=== PATIENT | male | born 1955 | race Caucasian/White ===

== ENCOUNTER 2024-11-23 14:26 | Emergency (ER) | payer OTHER, SELFPAY ==
[2024-11-23] VITALS (29 sets, daily range): BP systolic 119–180; BP diastolic 86–119; PULSE 82–101; RESP 12–34; TEMP 37.1–38.8; O2SAT 92–99
--- OUTSIDE RECORDS SUMMARY | 2024-11-23 14:30 | XMS_ITS | Clinical Summary ---
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 Role Phone Pcp, No Primary Care Provider Unavailabl e Allergies Active Allergy Reactions Criticality Noted Date Comments Adhesive Tape sensitivity Medications No known medications Active Problems Problem Noted Date Diagnosed Date Calculus of kidney 03/17/2007 Mixed hyperlipidemia Impaired fasting glucose Immunizations Immunization Administration Dates Next Due Hepatitis A (Adult) 03/04/2021,12/25/2013 Hepatitis B, Unspecified 11/07/1985,06/10/1985,0 05/10/1985 Inactivated Polio Vaccine 12/25/2013 Influenza, High-dose Quadriv alent Inactivated 02/20/2021,12/26/2019 Influenza, IIV4 (=>6mos) MDV 02/20/2019 Pneumococcal Poly,23-Valent (Pneumovax) 02/29/20 21 Pneumococcal conj 13-Valent (Prevnar 13) 020 Tdap 02/28/2021,12/25/2013 Tuberculin (PPD) 06/28/2009 Typhoid (injectable) 12/25/2013 Zoster (Shingrix-RZV, recombinant) 11/30/2018, Social History Tobacco Use Types Packs/Day Years Used Date Smoking Tobacco: Never Smokeless Tobacco: Never Tobacco Cessation:Counseling Given: Yes Alcohol Use Standard Drinks/Week Comments Yes 0 (1 standard drink = 0.6 oz pur e alcohol) socially Social Connections Answer Date Recorded Frequency of Communication with Friends and Fami ly Not on file 09/07/2022 Financial Resource Strain Answer Date R ecorded Difficulty of Paying Living Expenses 3 08/20/2021 Difficulty of Paying Living Expenses Not on file 08/20/2021 Food Insecurity Answer Date Recorded Worried About Running Out of Food in the Last Ye ar 1 08/20/2021 Transportation Needs Answer Date Record ed Lack of Transportation (Medical) 1 08/20/2021 Housing Stability Answer Date Recorded Unable to Pay for Housing in the Last Year 1 08/20/2021 Sex and Gender Information Value Date Recorded Sex Assigned at Not on file 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[employer] Gender Identity Not on file Sexual Orientation Not on file Obstetrics History Last Filed Vital Signs Vital Sign Reading Time Taken Comments Blood Pressure 148/100 08/20/2021 10:01 AM CDT Pulse 73 08/20/2021 9:27 AM CDT Temperature 35.4 C (95.7 F) 01/11/2007 11:45 AM CDT Respiratory Rate 18 01/11/2007 1:00 PM CDT Oxygen Saturation 96% 08/20/2021 9:27 AM CDT Inhaled Oxygen Concentration - - Weight 74.8 kg (165 lb) 08/20/2021 9:27 AM CDT Height 177.8 cm (5' 10) 01/11/2007 9:00 AM CDT Body Mass Index - - Plan of Treatment Health Maintenance Due Date Last Done Comments Depression screening for age 12+ 1966 BMI (ht and wt on same day) for age 18+ 1972 Hepatitis C screening for ag e 18-79 1972 Colonoscopy through age 75 1999 Lipids for age 45-75 02/10/2012 02/09/2007, 11/30/2005, 04/10/2002, Additional history exists Medicare Wellness for age 65+ 2019 COVID-19 vaccine series ( season) 2024 08/11/2021, 01/31/2021, 07/20/2020, Additional history exists Influenza Vaccine (#1) 2025 02/20/2019 RSV vaccine for adults or (1 - 1-dose 75+ series) 2029 Tetanus booster 02/28/2031 02/28/2021, 12/25/2013 Hepatitis B series for 19+ Completed 11/07, 06/10/1985, 05/10/1985 Zoster (shingles) series for age 50+ Completed 11/30/2018, 09/06/2018 Pneumococcal series for age 50+ Completed , 12/18/2019 Procedures Procedure Name Priority Date/Time Associated Diagnosis Comments LIPID PANEL Routine 02/09/2007 7:10 AM CDT Hyperlipidemia Mixed from Last 3 Months or Most Recently Relevant to Health Maintenance Results * LIPID PANEL (02/09/2007 7:10 AM CDT) [facility] Signature CHOLESTEROL,TOTAL 166 110 - 199 mg/dL [facility] TRIGLYCERIDES 68 <150 mg/dL [facility] HDL CHOLESTEROL 56 >40 mg/dL [facility] CHOL/HDL RATIO 2.96 <4.51 [facility] LDL CHOLESTEROL 96 <131 mg/dL [facility] PATIENT STATUS Fasting [facility] Blood specimen (specimen) BLOOD SPECIMEN / Unknown 02/09/2007 7:10 AM CDT 02/09/2007 7:06 AM CDT Daniel Silvestre MD CHEMISTRY Final Result [facility] [address] [place] [address] from Last 3 Months or Most Recently Relevant to Health [place] [address] [employer] CHOICE PPO MR Advance Directives * Full Code (Latest Code Status on File) Date Activated Date Inactivated Comments 01/11/2007 8:25 AM 01/11/2007 3:27 PM Care Teams [employer] K[employer] Tender Relationship Specialty Start Date End Date Pcp, No . PCP - General 08/20/21
[2024-11-23 15:14] LABS: Appearance Urine Clear (Clear)
--- NOTE | 2024-11-23 15:17 | CRLHL7_ITS ---
For Patients: As a result of the Century Cures Act, medical imaging exams and procedure reports are released immediately into your electronic medical record. You may view this report before your referring provider. If you have questions, please contact your health care provider. INDICATION: ALTERED MENTAL STATUS, FEVER TECHNIQUE: CT of the head was performed without IV contrast. COMPARISON: None. FINDINGS: Parenchyma: No acute hemorrhage, infarction, or mass. Moderate confluent periventricular white matter hypoattenuation is nonspecific and is favored to represent chronic small vessel ischemic disease. Ventricles and extra-axial spaces: Mild involutional changes. Visualized paranasal sinuses: Clear. Mastoid air cells: Clear. Bones: No focal abnormality. Additional comment: None. IMPRESSION: No acute intracranial abnormality. Please note that all CT scans at this facility use dose modulation, iterative reconstruction, and/or weight-based dosing when appropriate to reduce radiation dose to as low as reasonably achievable. Dictated by Sánchez Arvizu MD @ 11/23/2024 4:10:26 PM (Electronically Signed)
--- NOTE | 2024-11-23 15:17 | CRLHL7_ITS ---
For Patients: As a result of the Cures Act, medical imaging exams and procedure reports are released immediately into your electronic medical record. You may view this report before your referring provider. If you have questions, please contact your health care provider. INDICATION: : FEVER, AMS COMPARISON: None TECHNIQUE: Two view(s) of the chest FINDINGS: The cardiomediastinal silhouette and pulmonary vasculature are unremarkable. There is no focal airspace consolidation, pleural effusion, or pneumothorax. Likely nipple shadow on the right. No displaced fractures. IMPRESSION: No acute cardiopulmonary process. Dictated by Koby Kelly MD @ 11/23/2024 4:01:34 PM (Electronically Signed)
[2024-11-23 15:33] LABS: Lactate Sepsis w/Reflex* 2.0 mmol/L (0.5-1.9)
[2024-11-23 15:39] LABS: Hematocrit 44.2 % (37.0-53.0); Hemoglobin* 14.9 gm/dL (13.5-17.5); Immature Granulocytes Abs Auto 0.01 K/uL (0.00-0.30); Immature Granulocytes Pct Auto 0.1 %; Lymphocytes Absolute Auto 2.37 K/uL (0.90-2.90); Mean Corpuscular HGB Conc 34 gm/dL (32-36); Mean Corpuscular Hemoglobin 31 pg (26-34); Mean Corpuscular Volume 92 fL (80-100); RDW Coefficient of Variation % 18.3 % (11.5-15.5); Red Blood Count 4.80 m/uL (4.30-5.90); White Blood Count* 7.92 K/uL (4.50-11.00)
[2024-11-23 15:40] LABS: PCR FLU A Negative PCR FLU A (Negative); PCR FLU B Negative PCR FLU B (Negative); PCR RSV Negative PCR RSV (Negative); SARS PCR* Negative SARS-CoV-2 (Negative)
--- NOTE | 2024-11-23 15:43 | ED.GENADULT ---
HPI - General Adult General Date Seen: 11/23/24 Chief complaint: Neuro Symptoms/Altered Deficit Stated complaint: cognitive issues, instability Time Seen by Provider: 11/23/24 14:50 Source: patient and family Mode of arrival: ambulatory Limitations: no limitations History of Present Illness HPI narrative: Patient is a 69-year-old male presenting to the emergency department for altered mental status and instability. Patient is overall healthy with no medical issues or baseline memory issues presenting to the emergency department with his for issues with word finding, confusion, tremors and gait/balance issues. He was acting normally last night and his came home from work about noon today noticed do not seem right. She states he felt warm to the touch but did not check a temperature at that time. She states he has been continuing to act confused. Also seems very unstable when he walks which is abnormal. He has no sick contacts other than a grand kid that had a runny nose the other day. Has had less of an appetite over the past few days she states. He has not been coughing. Denies any chest pain, shortness of breath, abdominal pain, dysuria, polyuria, diarrhea, constipation, weakness, numbness, vision changes, headache. No history of symptoms like this before. Related Data Home Medications ?Medication ?Instructions ?Recorded ?Confirmed No Known Home Medications 11/23/24 11/23/24 Allergies Allergy/AdvReac Type Severity Reaction Status Date / Time oyster extract Allergy Unknown Verified 11/23/24 17:30 shellfish derived Allergy Unknown Verified 11/23/24 17:30 Review of Systems Status of ROS: Reports: 10 or more systems reviewed and unremarkable except as noted in History and below PFSH PFS Social History Smoking Status: Never smoker Do you use any of these nicotine containing products: None How often do you have a drink containing alcohol: 4 or more times a week How many standard drinks containing alcohol do you have on a typical day: 1 or 2 How often do you have six or more drinks on one occasion: Never AUDIT-C Alcohol total score: 4 Non-prescribed substance use: denies use Exam Narrative: Exam Narrative: Const: Well-nourished, Well-developed, in mild distress Eyes: PERRL, no conjunctival injection, and symmetrical lids HENT: Atraumatic external nose and ears. Dry mucous membranes. Neck: Symmetric, trachea midline, No thyromegaly. CVS: RRR, No murmurs or gallops. Peripheral pulses 2+ and equal in all extremities RESP: Unlabored respiratory effort. Clear to auscultation bilaterally. GI: Nontender/Nondistended, No rebound or guarding. MSK:Extremities w/o deformity, Normal Active ROM Skin: Warm, Dry. No rashes or lesions. Neuro: Normal Muscle tone, No focal neurological deficits. Psych: Awake, Alert, & Oriented x3. Appropriate mood and affect. Const: Vital Signs, click to edit/add: Vital Signs - 24 hr 11/23/24 14:42 11/23/24 15:42 11/23/24 15:51 Temperature 102 F H 100.9 F H Pulse Rate 90 Pulse Rate [Pulse Oximeter] 101 H 92 Respiratory Rate 20 21 24 Blood Pressure Blood Pressure [Ri ght Upper Arm] 180/97 H 151/102 H Pulse Oximetry 98 95 [facility] Room Air 11/23/24 16:01 11/23/24 16:11 11/23/24 16:15 Temperature 100.9 F H Pulse Rate 90 90 Pulse Rate [Pulse Oximeter] Respiratory Rate 32 H 24 Blood Pressure 161/86 H Blood Pressure [Ri ght Upper Arm] Pulse Oximetry 97 98 [facility] 11/23/24 16:30 11/23/24 16:41 11/23/24 16:45 Temperature 101.9 F H Pulse Rate 89 Pulse Rate [Pulse Oximeter] Respiratory Rate 30 H 34 H Blood Pressure Blood Pressure [Ri ght Upper Arm] Pulse Oximetry 92 [facility] 11/23/24 17:05 11/23/24 17:15 11/23/24 17:49 Temperature Pulse Rate 90 86 85 Pulse Rate [Pulse Oximeter] Respiratory Rate 27 H 22 22 Blood Pressure Blood Pressure [Ri ght Upper Arm] Pulse Oximetry 96 94 95 [facility] 11/23/24 18:03 11/23/24 18:15 11/23/24 18:44 Temperature Pulse Rate 86 82 90 Pulse Rate [Pulse Oximeter] Respiratory Rate 12 30 H 29 H Blood Pressure Blood Pressure [Ri ght Upper Arm] Pulse Oximetry 96 97 97 [facility] 11/23/24 18:45 11/23/24 19:00 11/23/24 19:23 Temperature 98.8 F Pulse Rate 88 95 Pulse Rate [Pulse Oximeter] Respiratory Rate 23 Blood Pressure Blood Pressure [Ri ght Upper Arm] Pulse Oximetry 98 98 Oxygen Delivery Me thod 11/23/24 19:30 11/23/24 19:34 11/23/24 20:39 Temperature Pulse Rate 99 Pulse Rate [Pulse Oximeter] Respiratory Rate 19 26 H Blood Pressure 161/98 H 119/91 H Blood Pressure [Ri ght Upper Arm] Pulse Oximetry 97 Oxygen Delivery Me thod 11/23/24 20:40 11/23/24 21:02 11/23/24 21:32 Temperature 99.5 F Pulse Rate 96 99 Pulse Rate [Pulse Oximeter] Respiratory Rate 26 H 26 H Blood Pressure 168/92 H 175/92 H Blood Pressure [Ri ght Upper Arm] Pulse Oximetry 98 99 Oxygen Delivery Me thod Course Vital Signs Vital signs: Initial Vital Signs Temperature 102 F H 11/23/24 14:42 Temperature Source Temporal Artery Scan 11/23/24 14:42 Pulse Rate 101 H 11/23/24 14:42 Respiratory Rate 20 11/23/24 14:42 Blood Pressure 180/97 H 11/23/24 14:42 Blood Pressure Mean 124 H 11/23/24 14:42 Blood Pressure Position Sitting 11/23/24 14:42 Pulse Oximetry 98 11/23/24 14:42 Oxygen Delivery Method Room Air 11/23/24 14:42 Vital Signs Temperature 102 F H 11/23/24 14:42 Pulse Rate 101 H 11/23/24 14:42 Respiratory Rate 20 11/23/24 14:42 Blood Pressure 180/97 H 11/23/24 14:42 Pulse Oximetry 98 11/23/24 14:42 Oxygen Delivery Method Room Air 11/23/24 14:42 Temperature 99.5 F 11/23/24 20:40 Pulse Rate 99 11/23/24 21:32 Respiratory Rate 26 H 11/23/24 21:32 Blood Pressure 175/92 H 11/23/24 21:32 Pulse Oximetry 99 11/23/24 21:32 Oxygen Delivery Method Room Air 11/23/24 15:51 Medications Administered Medications: Generic Name Dose Route Start Last Admin Trade Name Freq PRN Reason Stop Dose Admin Ceftriaxone Sodium 2 gm/ 100 mls @ 200 mls/hr 11/23/24 19:45 11/23/24 22:15 Sodium Chloride IVPB Infused Q24H YOANA Infusion Discontinued Medications Generic Name Dose Route Start Last Admin Trade Name Cornelius PRN Reason Stop Dose Admin Acetaminophen 650 mg 11/23/24 15:40 11/23/24 16:01 Acetaminophen 325 Mg Tablet PO 11/23/24 15:41 650 mg ONCE ONE Administration Sodium Chloride 1,000 mls @ 1,000 mls/hr 11/23/24 15:30 11/23/24 19:14 0.9 % Sodium Chloride 1000 Ml IV 11/23/24 17:36 Infused .Q1H YOANA Infusion Vancomycin/PEG/NADA/Lysine/Water 1.5 gm in 300 mls @ 200 mls/hr 11/23/24 19:37 11/23/24 21:35 Vancomycin 1.5 Gm/300 Ml IVPB 11/23/24 21:06 200 mls/hr ONCE ONE Administration Protocol Medical Decision Making [facility] Narrative Medical decision making narrative: Patient is a 69-year-old male presenting for altered mental status. The differential diagnosis of altered mental status is broad and includes infection, electrolyte abnormalities, ACS, dehydration, intercranial abnormality, hypoxia, metabolic causes, hypertensive encephalopathy, toxins, overdose/withdrawal, acute psychiatric illness etc. considering he has a fever and is tachycardic am concerned about sepsis and infection causing his confusion. Will do a septic workup. 30 mL/kilos fluid given. No signs of volume overload at this time. Tongue does look slightly dry. Also chest x-ray to look for signs of underlying pneumonia along with the CT scan of his head. Blood cultures, CBC, CMP, lactic, magnesium, troponin, urinalysis, viral swabs all ordered. Lab work shows no concerning findings other than he does have blood in his urine. Lactate is 2.0 which just slightly elevated. CT scan of the head shows no acute concerning abnormalities. Chest x-ray shows no acute concerning abnormalities. Due to the uncertainty of what is causing his infection I will do a CT scan chest abdomen pelvis to make sure we are not missing anything. He does have a history of kidney stones. This CT returned showing a obstructing 8 mm stone in the right collecting system. Is causing minimal hydronephrosis. Also has multiple bladder stones. Hard to say if this is truly an acute stone is he is having no pain but considering his history I do have concern but infected stone. We very well could just be early in the process of sepsis. Will treat him with Rocephin. Considering there is concerned about this infected stone will transfer him for Urology consult. Of note after the fluids his mental status has improved significantly. I spoke to hospitalist Dr. Jameson of self daily he accepted the patient. He does recommend urology consult. I did spoke to the on-call urologist for them and he is in agreement to transfer the patient. Does state the patient will likely need a stent either way but as long as the patient does not go septic he can likely be on tomorrow for the procedure. Patient is agreeable to this plan Lab Data Labs: Lab Results 11/23/24 11/23/24 11/23/24 Range/Units 14:50 15:06 15:25 WBC 7.92 (4.50-11.00) K/uL RBC 4.80 (4.30-5.90) m/uL Hgb 14.9 (13.5-17.5) gm/dL Hct 44.2 (37.0-53.0) % MCV 92 (80-100) fL MCH 31 (26-34) pg MCHC 34 (32-36) gm/dL RDW Coeff of Purnima 18.3 H (11.5-15.5) % Plt Count 260 (140-440) K/uL Neut % (Auto) 61.2 (42.0-72.0) % Lymph % (Auto) 29.9 (20-44) % Nuckolls % (Auto) 8.2 (0.0-11.0) % Eos % (Auto) 0.0 (0.0-7.0) % Baso % (Auto) 0.6 (0.0-3.0) % Neut # (Auto) 4.84 (1.7-7.0) K/uL Lymph # (Auto) 2.37 (0.90-2.90) K/uL Nuckolls # (Auto) 0.60 (0.00-0.90) K/UL Eos # (Auto) 0.00 (0.00-0.50) K/uL Baso # (Auto) 0.05 (0.00-0.30) K/uL Abs Immat Gran (auto) 0.01 (0.00-0.30) K/uL Imm/Tot Granulo (auto) 0.1 % Sodium 135 (135-149) mmol/L Potassium 4.2 (3.6-5.1) mmol/L Chloride 103 (96-114) mmol/L Carbon Dioxide 22 (20-32) mmol/L Anion Gap 10 (7-15) mEq/L BUN 18 (7-30) mg/dL Creatinine 1.1 (0.5-1.5) mg/dL Estimated GFR 72 ml/min Glucose 107 (60-115) mg/dL Lactate 2.0 H (0.5-1.9) mmol/L Calcium 9.5 (8.4-10.6) mg/dL Magnesium 2.0 (1.5-2.6) mg/dL Total Bilirubin 1.0 (0.1-1.5) mg/dL AST 36 H (12-35) U/L ALT 24 (4-50) U/L Alkaline Phosphatase 65 (40-150) U/L Troponin I < 0.01 (0.01-0.04) ng/mL Total Protein 8.5 H (6.0-8.3) g/dL Albumin 4.9 (3.3-5.0) g/dL Urine Color Yellow (Yellow) Urine Appearance Clear (Clear) Urine pH 6.0 (5.0-8.5) Ur Specific Deland 1.020 (1.000-1.030) Urine Protein 1+ A (Negative) Urine Glucose (UA) Negative (Negative) Urine Ketones Negative (Negative) Urine Blood 3+ A (Negative) Urine Nitrite Negative (Negative) Urine Bilirubin Negative (Negative) Urine Urobilinogen 0.2 (0.2-1.0) Ur Leukocyte Esterase Negative (Negative) Urine RBC 50-100 A (0-2) Urine WBC 0-2 (0-5) Ur Squamous Epith Cells Few (None-Few) Calcium Oxalate Crystal Few A (None) Urine Bacteria Few A (None) Urine Yeast Few A (None) SARS-CoV-2 (PCR) Negative SARS-CoV-2 (Negative) Influenza Type A (PCR) Negative PCR FLU A (Negative) Influenza Type B (PCR) Negative PCR FLU B (Negative) RSV (PCR) Negative PCR RSV (Negative) 07/17/25 Range/Units 17:25 WBC (4.50-11.00) K/uL RBC (4.30-5.90) m/uL Hgb (13.5-17.5) gm/dL Hct (37.0-53.0) % MCV (80-100) fL MCH (26-34) pg MCHC (32-36) gm/dL RDW Coeff of Purnima (11.5-15.5) % Plt Count (140-440) K/uL Neut % (Auto) (42.0-72.0) % Lymph % (Auto) (20-44) % Nuckolls % (Auto) (0.0-11.0) % Eos % (Auto) (0.0-7.0) % Baso % (Auto) (0.0-3.0) % Neut # (Auto) (1.7-7.0) K/uL Lymph # (Auto) (0.90-2.90) K/uL Nuckolls # (Auto) (0.00-0.90) K/UL Eos # (Auto) (0.00-0.50) K/uL Baso # (Auto) (0.00-0.30) K/uL Abs Immat Gran (auto) (0.00-0.30) K/uL Imm/Tot Granulo (auto) % Sodium (135-149) mmol/L Potassium (3.6-5.1) mmol/L Chloride (96-114) mmol/L Carbon Dioxide (20-32) mmol/L Anion Gap (7-15) mEq/L BUN (7-30) mg/dL Creatinine (0.5-1.5) mg/dL Estimated GFR ml/min Glucose (60-115) mg/dL Lactate 1.1 (0.5-1.9) mmol/L Calcium (8.4-10.6) mg/dL Magnesium (1.5-2.6) mg/dL Total Bilirubin (0.1-1.5) mg/dL AST (12-35) U/L ALT (4-50) U/L Alkaline Phosphatase (40-150) U/L Troponin I (0.01-0.04) ng/mL Total Protein (6.0-8.3) g/dL Albumin (3.3-5.0) g/dL Urine Color (Yellow) Urine Appearance (Clear) Urine pH (5.0-8.5) Ur Specific [place] (1.000-1.030) Urine Protein (Negative) Urine Glucose (UA) (Negative) Urine Ketones (Negative) Urine Blood (Negative) Urine Nitrite (Negative) Urine Bilirubin (Negative) Urine Urobilinogen (0.2-1.0) Ur Leukocyte Esterase (Negative) Urine RBC (0-2) Urine WBC (0-5) Ur Squamous Epith Cells (None-Few) Calcium Oxalate Crystal (None) Urine Bacteria (None) Urine Yeast (None) SARS-CoV-2 (PCR) (Negative) Influenza Type A (PCR) (Negative) Influenza Type B (PCR) (Negative) RSV (PCR) (Negative) Imaging Data Chest x-ray: Attestation: I have reviewed the pertinent imaging results. Radiologist's impression: No acute cardiopulmonary process. Dictated by Koby Kelly MD @ 11/23/2024 4:01:[address] scan head: Attestation: I have reviewed the pertinent imaging results. Radiologist's impression: No acute intracranial abnormality. Please note that all CT scans at this facility use dose modulation, iterative reconstruction, and/or weight-based dosing when appropriate to reduce radiation dose to as low as reasonably achievable. Dictated by Sánchez Arvizu MD @ 11/23/2024 4:10:[address] Chest/Ab/Pelvis: Radiologist's impression: 1. 8 mm stone in the proximal right renal collecting system at the UPJ, with minimal right hydronephrosis. There is mild inflammation around the collecting system and ureter. 2. Additional non-obstructing stone at the inferior pole of the right kidney. 3. Prostatomegaly indenting the base of the bladder. This may result in outlet obstruction. 4. Multiple bladder stones. Please note that all CT scans at this facility use dose modulation, iterative reconstruction, and/or weight-based dosing when appropriate to reduce radiation dose to as low as reasonably achievable. Dictated by Kim Blank MD @ 11/23/2024 6:42:02 PM ECG Data Attestation: I personally reviewed and interpreted this ECG as follows: Prior ECG tracings: not available for review Interpretation: Sinus rhythm with a rate of 92 beats per minute, normal intervals, normal axis, no ST or T-wave abnormalities Critical Care Time Critical Care Time Critical Care Time: Yes Attestation: The patient required my highest level preparedness to intervene emergently and I personally spent this critical care time directly and personally managing the patient. This critical care time included: Obtaining a history; Examining the patient; Pulse oximetry; Ordering and reviewing of studies; Arranging urgent treatment with development of a management plan; Evaluation of patients response to treatment; Frequent reassessment discussions with other providers. This critical care time was performed to assess and manage the high probability of imminent life-threatening deterioration that could result in multiorgan failure. It was exclusive of separate billable procedures and treating other patients and teaching time. Total Critical Care Time in Minutes: 35 Discharge Plan Discharge Clinical Impression: Right nephrolithiasis Sepsis Qualifiers: Sepsis type: sepsis due to unspecified organism Sepsis acute organ dysfunction status: unspecified Qualified Code(s): A41.9 - Sepsis, unspecified organism Patient Disposition: Xfer Other Condition: Improved Prescriptions: No Action No Known Home Medications Stand Alone Forms: [employer] Info Instructions
[2024-11-23 15:46] LABS: Slide Review Reflex No
[2024-11-23 15:50] LABS: Albumin* 4.9 g/dL (3.3-5.0); Chloride* 103 mmol/L (96-114); Potassium* 4.2 mmol/L (3.6-5.1); Sodium* 135 mmol/L (135-149)
[2024-11-23 15:53] LABS: Alanine Aminotransferase* 24 U/L (4-50); Alkaline Phosphatase* 65 U/L (40-150); Anion Gap 10 mEq/L (7-15); Aspartate Amino Transferase* 36 U/L (12-35); Bilirubin Total* 1.0 mg/dL (0.1-1.5); Blood Urea Nitrogen* 18 mg/dL (7-30); Calcium* 9.5 mg/dL (8.4-10.6); Carbon Dioxide* 22 mmol/L (20-32); Creatinine* 1.1 mg/dL (0.5-1.5); Estimated Glomerular Filt Rate 72 ml/min; Glucose* 107 mg/dL (60-115); Total Protein* 8.5 g/dL (6.0-8.3)
[2024-11-23] MEDS: ACETAMINOPHEN 325 MG TABLET 650 MG PO ×2 (16:01→23:00)
--- NOTE | 2024-11-23 16:21 | CRLHL7_ITS ---
For Patients: As a result of the 21st Century Cures Act, medical imaging exams and procedure reports are released immediately into your electronic medical record. You may view this report before your referring provider. If you have questions, please contact your health care provider. INDICATION: AMS, fever, hematuria. TECHNIQUE: CT chest, abdomen and pelvis acquired with 77 milliliters of Isovue 370 IV contrast. COMPARISON: None. FINDINGS: CHEST: Cardiovascular structures: Heart size is normal. Thoracic aorta and main pulmonary artery are normal in caliber. Mediastinum and jack: No mass or adenopathy. Lungs and pleura: Lungs and pleural spaces are clear. No suspicious nodules, infiltrates, or effusions. Chest wall and axilla: No mass or adenopathy. Bones: No suspicious bone lesions. Unremarkable for age. ABDOMEN AND PELVIS: Liver: Hepatic steatosis. No suspicious hepatic lesion identified. Gallbladder and bile ducts: Unremarkable. Pancreas: Unremarkable. Spleen: Unremarkable. Adrenal glands: Unremarkable. Kidneys: 8 millimeter stone in the proximal right renal collecting system at the [facility] (2/186) minimal right hydronephrosis. Nonobstructing stone at the inferior pole of the right kidney measuring approximately 5 millimeters. Inflammatory stranding and mild thickening along the right ureter. No left hydronephrosis or hydroureter. No left renal stones. GI tract: A few scattered colonic diverticuli. No evidence of diverticulitis. No bowel obstruction. Appendix is within normal limits. Vascular structures: Unremarkable. Lymph nodes: Unremarkable. Miscellaneous: Unremarkable. No free air or significant free fluid. Pelvic Organs: Prostatomegaly indenting the base of the bladder. Bladder is distended, with mildly thickened wall.Multiple bladder stones. Bones: No suspicious bone lesions. Unremarkable for age. IMPRESSION: 1. 8 mm stone in the proximal right renal collecting system at the [facility], with minimal right hydronephrosis. There is mild inflammation around the collecting system and ureter. 2. Additional non-obstructing stone at the inferior pole of the right kidney. 3. Prostatomegaly indenting the base of the bladder. This may result in outlet obstruction. 4. Multiple bladder stones. Please note that all CT scans at this facility use dose modulation, iterative reconstruction, and/or weight-based dosing when appropriate to reduce radiation dose to as low as reasonably achievable. Dictated by Kim Blank MD @ 11/23/2024 6:42:02 PM (Electronically Signed)
[2024-11-23 17:32] LABS: Lactate Sepsis 2 Hour 1.1 mmol/L (0.5-1.9)
[2024-11-23] MEDS: cefTRIAXone 2 GM in 0.9 % SODIUM CHLORIDE Mini-bag 100 ML IVPB (20:06)
[2024-11-23] MEDS: VANCOMYCIN 1.5 GM/300 ML 1.5 GM/300 ML PIGGYBACK IVPB (21:35)
[2024-11-24 00:13] VITALS: O2SAT 98
[2024-11-24 00:15] VITALS: BP 135/74; PULSE 83; RESP 16; RESP 24; TEMP 37.2; O2SAT 98
== END 2024-11-24 00:36 | disposition other institution (70) ==
PROVIDERS: Emergency Provider Student in an Organized Health Care Education/Training Program; PCP Family Medicine
DX: N20.0 Calculus of kidney (principal)
CPT/HCPCS: 36415; 70450; 71046; 71260; 74177; 80053; 81001; 83605; 83735; 84484; 85025; 87040; 87081; 87086; 87631; 93005; 94761; 99285; 99291; A9270; J0696; J3375; J7030; Q9967

== ENCOUNTER 2024-12-21 14:06 | Emergency (ER) | payer OTHER, SELFPAY ==
--- OUTSIDE RECORDS SUMMARY | 2024-11-24 01:36 | XMS_ITS | Encounter Summary ---
Author Organization [facility] Address [address] [place] [address]. [place] [address] Care Team Providers Care Associate Faculty Name Role Phone No Ref-Primary, Physician Primary Care Provider Reason for Visit * Auth/Cert Specialty Diagnoses / Procedures Referred By Kelvin camacho Referred To Contact Med Surg Diagnoses Kidney stone Kidney stone Get Figueroa DO [address] [phone] Phone: tel: fax: [facility] [address] [phone] Phone: tel: fax: Referral ID Status Reason Start Date Expiration Date Visits Re quested Visits Authorized [id number] 1 1 Encounter Details Date Type Department Care Team (Latest Contact Info) Description 11/24/2024 1:36 AM CDT - 11/29/2024 3:52 PM CDT Hospital Encounter [facility] Surgery [address] [phone] Lucinda Jamseon MD [address] [id number] Haley Tran MD [address] [id number] Brenna Dao MD [address] [phone] Get Figueroa DO [address] [place] [address] Kidney stone (Primary Dx) Discharge Disposition: Home or Self Care Social History Tobacco Use Types Packs/Day Years Used Date Smoking Tobacco: Never Smokeless Tobacco: Never Tobacco Cessation:Counseling Given: Not Answered Alcohol Use Standard Drinks/Week Comments Yes 0 (1 standard drink = 0.6 oz pur e alcohol) hasn't for 2 weeks Food Insecurity Answer Date Recorded Within the past 12 months, d id you worry that your food would run out before you got money to buy more? No 11/24/2024 Within the past 12 months, d id the food you bought just not last and you didn t have money to get more? No 11/24/2024 Housing Stability Answer Date Recorded Do you have housing? (Manuel g is defined as stable permanent housing and does not include staying outside in a car, in a tent, in an abandoned building, in an overnight mcfp, or couch-surfing.) Yes 11/24/2024 Are you worried about losing your housing? No 11/24/2024 Financial Resource Strain Answer Date R ecorded Within the past 12 months, h ave you or your family members you live with been unable to get utilities (heat, electricity) when it was really needed? No 11/24/2024 Transportation Needs Answer Date Record ed Within the past 12 months, h as lack of transportation kept you from medical appointments, getting your medicines, non-medical meetings or appointments, work, or from getting things that you need? No 11/24/2024 Interpersonal Safety Answer Date Record ed Do you feel physically and e motionally safe where you currently live? Yes 11/24/2024 Within the past 12 months, h ave you been hit, slapped, kicked or otherwise physically hurt by someone? No 11/24/2024 Within the past 12 months, h ave you been humiliated or emotionally abused in other ways by your partner or ex-partner? No 11/24/2024 Sex and Gender Information Value Date Recorded Sex Assigned at Not on file Legal Sex Male 7:51 PM CDT Gender Identity Not on file Sexual Orientation Not on file documented as of this encounter Last Filed Vital Signs Vital Sign Reading Time Taken Comments Blood Pressure 112/70 11/29/2024 8:02 AM CDT Pulse 79 11/29/2024 8:02 AM CDT Temperature 36.8 C (98.3 F) 11/29/2024 8:02 AM CDT Respiratory Rate 16 11/29/2024 8:02 AM CDT Oxygen Saturation 95% 11/29/2024 8:02 AM CDT Inhaled Oxygen Concentration - - Weight 69.8 kg (153 lb 14.1 oz) 11/24/2024 5:21 AM CDT Height 177.8 cm (5' 10) 11/24/2024 5:21 AM CDT Body Mass Index 22.08 11/24/2024 5:21 AM CDT documented in this encounter Discharge Summaries * Adriana Chan MD - 11/29/2024 1:38 PM CDT Images from the original note were not included. [facility] Discharge Summary Hospitalist Date of Admission: 11/24/2024 Date of Discharge: 11/29/2024 Discharging Provider: Adriana Chan MD Discharge Diagnoses Renal calculi History of Present Illness Please review admission history and physical. Hospital Course David Campbell was admitted on 11/24/2024. The following problems were addressed during his hospitalization: Active Problems: Kidney stone Dr. 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 Possible right pyelonephritis Obstructing 8mm right UPJ stone with mild hydronephrosis S/p cystoscopy and right ureteral stent placement 11/24 CT showed multiple bladder stones, prostamegaly and additional non obstructing right kidney stones.UA with some blood and bacteria but otherwise no nitrites, LE. no leukocytosis but had fever and encephalopathy which suggests infection. Patient was started on ceftriaxone and vancomycin at OSH, he was later continued on ceftriaxone 2 g IV daily, urine culture is negative, PSA elevated at 11. --11/24 cystoscopy with right stent placement with Dr. De Los Santos. Procedure was noticed to be complicated by need for indwelling Medrano catheter due to prostate bleeding secondary to enlarged prostate. CBI was initiated, hemoglobin trended down to 7 on 11/26, received 1 unit PRBC, hemoglobin stable since. Patient underwent Successful HoLEP, cystolitholapaxy, on 11/28, recovery was unremarkable. Hemoglobin stable, antibiotics discontinued on discharge. - Continue Flomax and finasteride. Follow-up with urology as recommended, hemoglobin 8.4. Encephalopathy: resolved Metabolic encephalopathy Likely due to fever and infection, improved with IVF and antipyretics. Head CT negative. No meningeal signs. Neuro exam is non focal and he already feels back to baseline so doubt CVA Adriana Chan MD Significant Results and Procedures Pending Results These results will be followed up by urology Unresulted Labs Ordered in the Past 30 Days of this Admission Date and Time Order Name Status Description 11/28/2024 5:29 PM Surgical Pathology Exam In process 11/28/2024 4:45 PM Stone analysis In process 11/24/2024 5:15 PM Anaerobic Bacterial Culture Routine Preliminary Code Status Full Code Primary Care Physician Physician No Ref-Primary Physical Exam Temp: 98.3 ??F (36.8 ??C) Temp src: Oral BP: 112/70 Pulse: 79 Resp: 16 SpO2: 95 % O2 Device: None (Room air) Oxygen Delivery: 2 LPM Vitals: 11/24/24 0521 Weight: 69.8 kg (153 lb 14.1 oz) Vital Signs with Ranges Temp: [96.8 ??F (36 ??C)-98.3 ??F (36.8 ??C)] 98.3 ??F (36.8 ??C) Pulse: [67-79] 79 Resp: [11-21] 16 BP: (106-146)/(68-81) 112/70 SpO2: [94 %-99 %] 95 % I/O last 3 completed shifts: In: 2240 [P.O.:890; I.V.:1000; IV Piggyback:100] Out: 9320 [Urine:9300; Blood:20] The patient was examined on the day of discharge. Discharge Disposition Discharged to home Condition at discharge: Stable Consultations This Hospital Stay UROLOGY IP CONSULT Time Spent on this Encounter I, Adriana Chan MD, personally saw the patient today and spent greater than 30 minutes discharging this patient. Discharge Orders Patient care order You have a URETERAL STENT. This is a temporary tube that will help your kidney drain appropriately after your procedure. Most people notice three symptoms when they have a stent: 1) Bladder spasms - You may feel the urge to urinate frequently while the stent is in. - You may have occasional bladder spasms where you feel pain in the bladder area. - You may have been prescribed a medicine like Detrol or Ditropan to help with these symptoms. 2) Blood in the urine - Usually this is light pink . - If you see blood in the urine, rest and drink plenty of fluids. 3) Pain in the kidney area - This usually happens right after urination and goes away pretty quickly. - You can take tylenol for the pain . These symptoms are temporary and will usually improve quickly once the stent can be removed. IMPORTANT: Stents are designed to be temporary. You will need to make arrangements with your doctorto have it removed. When to call - Contact Surgeon Team You may experience symptoms that require follow-up before your scheduled appointment. Contact your Surgeon Team if you are concerned about pain control, large amount of bleeding, blood clots, constipation, or if you experience signs of infection (fever, growing tenderness at the surgery site, a large amount of drainage, severe pain, foul-smelling drainage, redness or swelling. When to call - Reach out to Urgent Care If you are experiencing uncontrolled Nausea and Vomiting, uncontrolled pain, inability to urinate and uncomfortable, and in need of immediate care, and you are NOT able to reach your Surgeon Team, [facility] an Urgent Care clinic. Do NOT go to the Emergency Room unless you have shortness of breath, chest pain, or other signs of a medical emergency. When to call - Reasons to Call 911 Call 911 immediately if you experience sudden-onset chest pain, arm weakness/numbness, slurred speech, or shortness of breath Symptoms - Fever Management A low grade fever can be expected after surgery. Your Provider many have prescribed an Opioid pain medication that also contains acetaminophen (TYLENOL) that may help with Fever management. Do NOT take additional acetaminophen (TYLENOL) in combination with an Opioid/acetaminophen (TYLENOL) product.Read the labels on your Over The Counter (OTC) medications with care. Symptoms - Reduced Urine Output If it has been greater than 8 hours since you have urinated despite drinking plenty of water, call your Surgeon Team. No driving or operating machinery Do NOT drive any vehicle or operate mechanical equipment for 24 hours following the end of your surgery. Even though you may feel normal, your reactions may be affected by Anesthesia medication you received. No Alcohol Do NOT drink alcoholic beverages for 24 hours following your surgery and while taking pain medications. Diet Instructions Follow your surgeon's orders for any diet restrictions. If you did not receive any diet restrictions, you may drink clear liquids (apple juice, madeline vanda, 7- up, broth, etc.), and progress to your regular diet as you feel able. It is important to stay well-hydrated after surgery and drink plenty ofwater. Discharge Instructions - Comfort and Pain Management Pain after surgery is normal and expected. You will have some amount of pain after surgery. Your pain will improve with time. There are several things you can do to help reduce your pain including: rest, ice, and using pain medications as needed. Use pain interventions and don't wait until pain level is out of control. Contact your Surgeon Team if you have pain that persists or worsens after surgery despite rest, ice, and taking your medication(s) as prescribed. You may have a dry mouth, a sorethroat, muscles aches or trouble sleeping, and these symptoms should go away after 24 hours. Discharge Instructions - Rest Rest and relax for the next 24 hours. Make arrangements to have someone stay with you overnight, and avoid hazardous and strenuous activities. Do NOT make any important decisions for the next 24 hours. No lifting No lifting over 10 pounds and no strenuous physical activity for 2 weeks. Follow Up ([facility]) Follow up with [facility] in the coming weeks for definitive stone treatment. Our office will call you to schedule an appointment. If you do not hear from us within 3 business days of hospitaldischarge, please call [phone] to schedule an appointment. [facility] [address] [place] [address] You may call with any questions or concerns. You underwent a Holmium laser enucleation of the prostate. FOLLOW-UP: Pathology results from your procedure should be available in one to two business days. If you are not contacted regarding these results, please contact Dr. Carter's team You are requested to make a follow-up appointment with in three months with a uroflow study, urine analysis, and urine culture performed prior to the appointment. [facility] to schedule this appointment at least two months in advance. Follow-up will be with either Dr. Carter or her physician optometrist assistant. Any general Urology questions can be addressed by Dr. Carter's team You will need to contact our teams for all questions or concerns regarding insurance, disability paperwork, or FMLA forms. GENERAL: If you experience any fevers> 100.4, significant nausea I vomiting, or significant worsening of pain, please contact us at the number below. It is common to experience recurrent blood in your urine for several months after surgery. Althoughthere should be a general trend of decreasing bleeding over time, it is not uncommon for bleeding to recur after periods of no bleeding. If you notice passage of clots, you should increase your liquid intake in order to reduce the number of clots encountered. If the bleeding continues to worsen with inability to pass clots, inability to urinate, or you experience significant light-headedness, please contact us at the number above. Burning with urination, or dysuria, is common after this procedure. This may occur at any time of the urinary stream. This will continue to improve over time. It is common to temporary urinary leakage after this procedure. This will continue to improve over time. You may additionally perform Kegel exercises with every void to help build the muscles at the base of the bladder. You are restricted from lifting greater than 10 pounds for 2 weeks from the date of surgery until the urine is consistently clear. You may resume driving once you are able to perform the activities of driving without pain. Do not use aspirin or aspirin-containing products for at least one week after surgery. You may resume taking a shower and bathing. You may travel by airplane or ground transportation after discharge. A short walk is recommended atleast once every hour during long journeys. Avoid sexual intercourse for one week from the date of surgery. It is common to experience bleedingwith ejaculation during the healing period. Avoid activities which place pressure in the pelvic area such as bicycling for 6 weeks from the date of surgery. It is common to experience mild, recurrent blood in your urine including small blood clots. If the bleeding continues to worsen with passage of large clots, you are unable to urinate, or you experience significant light headedness, please contact the urology service. PAIN MANAGEMENT: In general, use acetaminophen (Tylenol Extra Strength) one to two tablets every six hours for pain. It is best to take pain medications before your pain becomes severe. This will allow you to take less medication yet have better pain relief. For the first 2 or 3 days it may be helpful to take your pain medications on a regular schedule (e.g. every 4 to 6 hours). This will help you to keep your pain under better control. You should then begin to take fewer medications each day until you no longer need them. Do not consume more than 4000 mg or 4 gm of Tylenol or acetaminophen-containing products within a 24 hour time period to avoid damage to your liver. Reason for your hospital stay Hematuria Activity Your activity upon discharge: activity as tolerated Follow Up Follow up with urology as recommended,Will need ureteroscopy in the upcoming weeks with Dr. Turner. AVS updated. - Will need CBC in 4 to 5 days to make sure hemoglobin is stable. Diet Follow this diet upon discharge: Current Diet:Orders Placed This Encounter Regular Diet Adult Discharge Medications Current Discharge Medication List START taking these medications Details !! acetaminophen (TYLENOL) 325 MG tablet Take 2 tablets (650 mg) by mouth every 4 hours as needed for mild pain or other (and adjunct with moderate or severe pain or per patient request). finasteride (PROSCAR) 5 MG tablet Take 1 tablet (5 mg) by mouth daily. Qty: 30 tablet, Refills: 0 Associated Diagnoses: Kidney stone tamsulosin (FLOMAX) 0.4 MG capsule Take 1 capsule (0.4 mg) by mouth every evening. Qty: 30 capsule, Refills: 0 Associated Diagnoses: Kidney stone !! - Potential duplicate medications found. Please discuss with provider. CONTINUE these medications which have NOT CHANGED Details !! acetaminophen (TYLENOL) 500 MG tablet Take 500-1,000 mg by mouth every 8 hours as needed for mild pain. Cholecalciferol (VITAMIN D-3 PO) Take 1 tablet by mouth every morning. magnesium oxide 400 MG tablet Take 400 mg by mouth every morning. !! - Potential duplicate medications found. Please discuss with provider. STOP taking these medications Menaquinone-7 (VITAMIN K2 PO) Comments: Reason for Stopping: Allergies Allergies Allergen Reactions Shellfish-Derived Products Nausea and Vomiting Latex Rash Rash with latex bandages Data Most Recent 3 CBC's: Recent Labs Lab Test 11/29/24 0743 11/28/24 1039 11/27/24 1257 11/27/24 0744 11/26/24 0704 11/25/24 1002 11/25/24 0650 WBC -- -- -- 4.2 6.3 -- 10.3 HGB 8.4* 8.2* 8.5* 7.9* 7.0* < > 9.5* MCV 87 88 89 88 93 < > 95 PLT -- -- -- 166 163 -- 205 < > = values in this interval not displayed. Most Recent 3 BMP's: Recent Labs Lab Test 11/29/24 0551 11/26/24 0704 11/24/24 1851 11/24/24 0655 NA -- 135 138 136 POTASSIUM -- 4.0 4.2 4.0 CHLORIDE -- 104 105 106 CO2 -- 23 20* 18* BUN -- 17.7 13.0 15.9 CR -- 0.99 0.87 0.97 ANIONGAP -- 8 13 12 ALEKS -- 8.4* 8.3* 9.0 GLC 108* 109* 106* 101* Most Recent 2 LFT's: Recent Labs Lab Test 11/26/24 0704 AST 27 ALT 9 ALKPHOS 37* BILITOTAL 0.4 Most Recent INR's and Anticoagulation Dosing History: Anticoagulation Dose History Latest Ref Rng & Units 11/24/2024 Recent Dosing and Labs INR 0.85 - 1.15 1.19 Most Recent 3 Troponin's:No lab results found. Most Recent Cholesterol Panel:No lab results found. Most Recent 6 Bacteria Isolates From Any Culture (See EPIC Reports for Culture Details):No lab results found. Most Recent TSH, T4 and A1c Labs:No lab results found. Results for orders placed or performed during the hospital encounter of 11/24/24 XR Surgery AMALIA L/T 5 Min Fluoro w Stills Narrative This exam was marked as non-reportable because it will not be read by a radiologist or a [facility] non-radiologist provider. CT Abdomen Pelvis w/o Contrast Narrative EXAM: CT ABDOMEN PELVIS W/O CONTRAST LOCATION: [facility] DATE: 11/24/2024 INDICATION: kidney stones, hematuria, confirm medrano in bladder look for bladder distention COMPARISON: None. TECHNIQUE: CT scan of the abdomen and pelvis was performed without IV contrast. Multiplanar reformats were obtained. Dose reduction techniques were used. CONTRAST: None. FINDINGS: LOWER CHEST: Bibasilar atelectasis. HEPATOBILIARY: Liver and gallbladder within normal limits. PANCREAS: Normal. SPLEEN: Normal. ADRENAL GLANDS: Normal. KIDNEYS/BLADDER: Right ureteral stent noted within the interpolar region of the right kidney. 6 mm stone noted within the right collecting system. Few tiny 1 mm stone noted within the left kidney. Noleft hydronephrosis. BOWEL: Diverticulosis of the colon. No acute inflammatory change. No obstruction. LYMPH NODES: Normal. VASCULATURE: Normal. PELVIC ORGANS: Several stones are noted throughout the bladder measuring up to 1.8 cm. Prostatomegaly. Medrano catheter noted within the bladder. High density fluid noted within the bladder which may be related to hemorrhage or possible previous contrast administration. Small fat-containing right inguinal hernia. MUSCULOSKELETAL: Degenerative changes of the spine. Impression IMPRESSION: 1. Right ureteral stent with no evidence of hydronephrosis. 6 mm stone noted within the right collecting system. 2. Several stones are noted within the bladder measuring up to 1.8 cm. 3. High density fluid noted within the bladder which may be related to hemorrhage or possible previous contrast administration. documented in this encounter Medications at Time of Discharge acetaminophen (TYLENOL) 325 MG tablet Take 2 tablets (650 mg) by mouth every 4 hours as needed for mild pain or other (and adjunct with moderate or severe pain or per patient request). 11/29/2024 acetaminophen (TYLENOL) 500 MG tablet Take 500-1,000 mg by mouth every 8 hours as needed for mild pain. Cholecalciferol (VITAMIN D-3 PO) Take 1 tablet by mouth every morning. finasteride (PROSCAR) 5 MG tabletIndication s:Kidney stone Take 1 tablet (5 mg) by mouth daily. 30 tablet 11/30/2024 12/30/2024 magnesium oxide 400 MG tablet Take 400 mg by mouth every morning. tamsulosin (FLOMAX) 0.4 MG capsuleIndicatio ns:Kidney stone Take 1 capsule (0.4 mg) by mouth every evening. 30 capsule 11/29/2024 12/29/2024 documented as of this encounter Progress Notes * Edwina Sanabria PA-C - 11/29/2024 7:31 AM CDT Subjective: Doing very well this morning. States he's had the best sleep since admission. Denies any bothersome pain, SP pressure, N/V with regular diet, dyspnea, lightheadedness, CP, fatigue. Understands he needs follow up surgery for ureteral calculus. AVSS Hgb 8.2 --> 8.4 Objective: Temp (24hrs), Av.3 ??F (36.3 ??C), Min:96.8 ??F (36 ??C), Max:98.1 ??F (36.7 ??C) GENERAL: awake, alert, NAD. Sitting upright in bed. EYES: no icterus HEAD, EARS, NOSE, MOUTH, AND THROAT: atraumatic, normocephalic CARDIAC: skin well perfused RESPIRATORY: breathing unlabored ABDOMEN: soft, non tender, non distended. No SP tenderness. : Medrano in place with traction (light pink), no urethral bleeding or discharge noted SKIN/HAIR/NAILS: no visible rashes EXTREMITIES: No calf pain or LE edema PSYCHIATRIC: Speech: normal, Mood: normal, Affect: normal ASSESSMENT: 69 year old male POD #1 s/p HoLEP and cystolitholapaxy with Dr. Carter. Initially presented on 11/24/2024 with colic from 8 mm right proximal ureteral stone causing right hydronephrosis. S/p right ureteral stent placement (Dr. Turner) 11/24; intraoperative findings include bladder cystitis, bladder stones x4 present, very large prostate with median lobe with significant bleeding from prostate. Has remained on CBI for multiple days, inability to wean CBI with acute blood loss anemia requiring blood transfusion x1. PLAN: - CBI clamped around 7:40AM by RN. Urine jasbir after ambulation 1.5 hour after CBI clamped. Proceeded with fill and pull voiding trial; patient tolerated Medrano removal without issues. RN order for PVR scans. If 2x PVR over 300cc, please replace Medrano and page urology for outpatient voiding trial - Hemoglobin reordered this AM - stable - Went over postop expectations - Will need ureteroscopy in the upcoming weeks with Dr. Turner. AVS updated Will discuss with Dr. Carter. Edwina Sanabria PA-C [facility] Pager: [phone] Office: [phone] * Adriana Chan MD - 11/28/2024 1:30 PM CDT [facility] Hospitalist Progress Note 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 Possible right pyelonephritis Obstructing 8mm right UPJ stone with mild hydronephrosis S/p cystoscopy and right ureteral stent placement 11/24 CT showed multiple bladder stones, prostamegaly and additional non obstructing right kidney stones.UA with some blood and bacteria but otherwise no nitrites, LE. no leukocytosis but had fever and encephalopathy which suggests infection. Patient was started on ceftriaxone and vancomycin at OSH, he was later continued on ceftriaxone 2 g IV daily, urine culture is negative, PSA elevated at 11. --11/24 cystoscopy with right stent placement with Dr. De Los Santos. Procedure was noticed to be complicated by need for indwelling Medrano catheter due to prostate bleeding secondary to enlarged prostate. CBI was initiated, hemoglobin trended down to 7 on 11/26, received 1 unit PRBC, hemoglobin stable since. - Plan noted for HOL EP.today, continue Flomax, possibly can discharge Rocephin on discharge. - Encephalopathy: resolved Metabolic encephalopathy Likely due to fever and infection, improved with IVF and antipyretics. Head CT negative. No meningeal signs. Neuro exam is non focal and he already feels back to baseline so doubt CVA Diet :NPO for Procedure/Surgery per Anesthesia Guidelines DVT Prophylaxis: Pneumatic Compression Devices Code Status: Full Code 51 MINUTES SPENT BY ME on the date of service doing chart review, history, exam, documentation & further activities per the note. Medically Ready for Discharge: Anticipated Tomorrow Clinically Significant Risk Factors # Hypoalbuminemia: Lowest albumin = 3.3 g/dL at 11/26/2024 7:04 AM, will monitor as appropriate Adriana Chan MD Text Page (7am to 6pm) Interval History Patient is n.p.o. for procedure, denies any pain, CBI ongoing, pinkish urine noted -Data reviewed today: I reviewed all new labs and imaging results over the last 24 hours. . Physical Exam Vital Signs with Ranges Temp: [97.6 ??F (36.4 ??C)-98.1 ??F (36.7 ??C)] 98.1 ??F (36.7 ??C) Pulse: [77-94] 77 Resp: [18] 18 BP: (109-134)/(63-77) 111/76 SpO2: [96 %-98 %] 96 % I/O last 3 completed shifts: In: - Out: 6225 [Urine:6300] Constitutional: Awake, alert, cooperative, no apparent distress Respiratory: Clear to auscultation bilaterally, no crackles or wheezing Cardiovascular: Regular rate and rhythm, normal S1 and S2, and no murmur noted GI: Normal bowel sounds, soft, non-distended, non-tender Skin/Integumen: No rashes, no cyanosis, no edema Neuro : moving all 4 extremities, no focal deficit noted Medications Current Facility-Administered Medications Medication Dose Route Frequency Provider Last Rate Last Admin sodium chloride 0.9% irrigation (bag) Irrigation Continuous Franky Turner MD 3,000 mL at 11/27/24 0646 Current Facility-Administered Medications Medication Dose Route Frequency Provider Last Rate Last Admin cefTRIAXone (ROCEPHIN) 1 g vial to attach to NS 100 mL bag for ADULTS or NS 50 mL bag for PEDS 1 g Intravenous Q24H Franky Turner MD 200 mL/hr at 11/27/24 192 1 g at 11/27/241928 finasteride (PROSCAR) tablet 5 mg 5 mg Oral Daily Geronimo Carter MD 5 mg at 11/28/24 1003 sodium chloride (PF) 0.9% PF flush 3 mL 3 mL Intracatheter Q8H [facility] Get Figueroa DO 3 mL at 11/28/24 1006 tamsulosin (FLOMAX) capsule 0.4 mg 0.4 mg Oral QPM Geronimo Carter MD 0.4 mg at 11/27/24 2046 Data Recent Labs Lab 11/28/24 1039 11/27/24 1257 11/27/24 0744 11/26/24 0704 11/25/24 1002 11/25/24 0650 11/24/24 2221 11/24/24 1851 11/24/24 0655 WBC -- -- 4.2 6.3 -- 10.3 -- 12.6* 7.8 HGB 8.2* 8.5* 7.9* 7.0* < > 9.5* < > 11.8* 13.2* MCV 88 89 88 93 < > 95 < > 94 94 PLT -- -- 166 163 -- 205 -- 233 214 INR -- -- -- -- -- -- -- 1.19* -- NA -- -- -- 135 -- -- -- 138 136 POTASSIUM -- -- -- 4.0 -- -- -- 4.2 4.0 CHLORIDE -- -- -- 104 -- -- -- 105 106 CO2 -- -- -- 23 -- -- -- 20* 18* BUN -- -- -- 17.7 -- -- -- 13.0 15.9 CR -- -- -- 0.99 -- -- -- 0.87 0.97 ANIONGAP -- -- -- 8 -- -- -- 13 12 ALEKS -- -- -- 8.4* -- -- -- 8.3* 9.0 GLC -- -- -- 109* -- -- -- 106* 101* ALBUMIN -- -- -- 3.3* -- -- -- -- -- PROTTOTAL -- -- -- 5.6* -- -- -- -- -- BILITOTAL -- -- -- 0.4 -- -- -- -- -- ALKPHOS -- -- -- 37* -- -- -- -- -- ALT -- -- -- 9 -- -- -- -- -- AST -- -- -- 27 -- -- -- -- -- < > = values in this interval not displayed. Recent Labs Lab 11/26/24 0704 11/24/24 1851 11/24/24 0655 GLC 109* 106* 101* Imaging: No results found for this or any previous visit (from the past 24 hours). * Jammie Cerna PA-C - 11/28/2024 11:29 AM CDT UROLOGY PROGRESS NOTE November 28, 2024 HPI/SUBJECTIVE: Pt resting comfortably in bed. CBI at moderate/fast drip with clear peach colored outputs, flowing with without visible clots. Notes occasional bladder spasms. Scheduled for HoLEP this afternoon withDr. Carter. AVSS Hgb 8.5 --> 8.2 OBJECTIVE: BP 111/76 (BP Location: Right arm) Pulse 77 Temp 98.1 ??F (36.7 ??C) (Oral) Resp 18 Ht 1.778 m (5' 10) Wt 69.8 kg (153 lb 14.1 oz) SpO2 96% BMI 22.08 kg/m?? Intake/Output Summary (Last 24 hours) at 11/28/2024 1129 Last data filed at 11/28/2024 1000 Gross per 24 hour Intake 50 ml Output 7600 ml Net -7550 ml GENERAL: Awake alert, NAD. Lying supine in bed. HEAD, EARS, NOSE, MOUTH, AND THROAT: atraumatic, normocephalic CARDIAC: skin well perfused RESPIRATORY: breathing unlabored ABDOMEN: soft, non tender, non distended, no rebound or guarding FLANKS: No CVAT bilaterally : CBI at moderate/fast drip, 3-way Medrano draining clear outputs, no clots. No SP tenderness. PSYCHIATRIC: Speech: normal Mood: normal Affect: normal ASSESSMENT: 69 year old male who presented on 11/24/2024 with colic from 8 mm right proximal ureteral stone causing right hydronephrosis. S/p right ureteral stent placement (Dr. Turner) 11/24; intraoperative findings include bladder cystitis, bladder stones x4 present, very large prostate with median lobe with significant bleeding from prostate. Has remained on CBI for multiple days, inability to wean CBI with acute blood loss anemia requiring blood transfusion x1. PLAN: - Keep NPO; proceed with HoLEP with Dr. Carter as scheduled this afternoon. Will need to clarify plan for management of the bladder stones and proximal right ureteral stone. - Keep CBI running today to achieve light pink/clear outputs. Hand irrigate PRN. ADDM 1200: D/w Dr. Carter, will add cystolitholapaxy to consent. No plans for ureteroscopy/HLL forthe ureteral stone today, will need follow up arranged for that with Dr. Turner in a few weeks. Jammie Cerna PA-C [facility] Office: [phone] During office hours you can reach me at my pager: [phone]. After 5:00 PM or on weekends, please call the office to be directed to the on-call urologist. Cosigned by Geronimo Carter MD at 11/28/2024 2:08 PM CDT Associated attestation - Geronimo Carter MD - 11/28/2024 2:08 PM CDT Physician Attestation I saw and evaluated David Campbell as part of a shared [employer] CONTROL/[employer]FARE OFFICER/PA visit. I personally reviewed the vital signs, medications, labs, and imaging. I personally provided a substantive portion of care for this patient and I approve the care plan aswritten by the [place]. I was involved with Medical Decision Making including: Please see A&P for additional details of medical decision making. Tests personally interpreted in the past 24 hours: - ABDOMINAL CT showing 140 gram prostate, several large bladder stones. Stents in good position Medical complexity over the past 24 hours: - Decision regarding EMERGENCY MAJOR SURGERY 57 modifer for decision to move forward with surgery today. Geronimo Carter MD Date of Service (when I saw the patient): 11/28/24 * Brenna Dao MD - 11/27/2024 5:13 PM CDT [facility] Medicine Progress Note - Hospitalist Service Date of Admission: 11/24/2024 Interval History Patient is waiting to have procedure done tomorrow with TOV. Continues to have blood in his urine. Currently had been on chronic bladder irrigation. 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 Possible right pyelonephritis Obstructing 8mm right UPJ stone with mild hydronephrosis S/p cystoscopy and right ureteral stent placement 11/24 CT showed multiple bladder stones, prostamegaly and additional non obstructing right kidney stones.UA with some blood and bacteria but otherwise no nitrites, LE. no leukocytosis but had fever and encephalopathy which suggests infection. Started on ceftriaxone and vanco at OSH. Admission for further evaluation and management. He has been continued on ceftriaxone 2 g daily (urine cultures negative from washings from right kidney) may have started on antibiotics at outside hospital prior to arrival PSA elevated at 11 with urology following 11/24 cystoscopy with right stent placement with Dr. De Los Santos. Procedure was noticed to be complicated by need for indwelling Medrano catheter due to prostate bleeding secondary to enlarged prostate. CBI was started patient was hand irrigated x 2 overnight Hgb has downward trend , down to 7 on AM 11/26 (given 1 unit of PRBC) 11/27 hemoglobin on 8.5 Urine stays clear pink with moderate to slow CBI Still with blood in urine 11/27 11/27 as per plan from urology will continue on CBI to achieve light pink clear outputs. (Hand irrigate for clots) 11/27 continued to have large amount of blood in urine after clamping >> required CBI restarted slow rate HOLEP schedule for tomorrow 11/28 Patient on Flomax Further plans per urology Remains on rocephin (Rec discussion with Urology) - Encephalopathy: resolved Metabolic encephalopathy Likely due to fever and infection, improved with IVF and antipyretics. Head CT negative. No meningeal signs. Neuro exam is non focal and he already feels back to baseline so doubt CVA 11/27 patient appeared to be awake and alert. Diet: Regular Diet Adult NPO for Procedure/Surgery per Anesthesia Guidelines Except for: Meds; Clear liquids before procedure/surgery: ADULT (Age GREATER than or Equal to 18 years) - Clear liquids 2 hours before procedure/surgery DVT Prophylaxis: Pneumatic Compression Devices: Unable to initiate Lovenox or heparin given bleeding: Encourage patient to ambulate. Monitor for edema Medrano Catheter: PRESENT, indication: Surgical procedure Lines: None Cardiac Monitoring: None Code Status: Full Code Clinically Significant Risk Factors # Hypocalcemia: Lowest Ca = 8.4 mg/dL in last 2 days, will monitor and replace as appropriate # Hypoalbuminemia: Lowest albumin = 3.3 g/dL at 11/26/2024 7:04 AM, will monitor as appropriate Social Drivers of Health Received from [employer] Disposition Plan Medically Ready for Discharge: Anticipated in 2-4 Days BRENNA DAO MD Hospitalist Service [facility] Securely message with [employer] (more info) Text page via [facility] Paging/Directory Physical Exam Vital Signs: Temp: 98.1 ??F (36.7 ??C) Temp src: Oral BP: 109/63 Pulse: 94 Resp: 18 SpO2: 98 % O2 Device: None (Room air) Weight: 153 lbs 14.1 oz General Appearance: Patient is awake and alert. Discussion regarding his care plan Respiratory: Clear to auscultation bilaterally without wheezes or rhonchi Cardiovascular: Regular rate and rhythm without gallop rub normal S1-S2 GI: Positive bowel sounds soft rebound guarding or tender Skin: no overt edema Other: Medrano with red urine Medical Decision Making 35 MINUTES SPENT BY ME on the date of service doing chart review, history, exam, documentation & further activities per the note. Data I have personally reviewed the following data over the past 24 hrs: 4.2 \ 8.5 (L) / 166 N/A N/A N/A / N/A N/A N/A N/A \ Imaging results reviewed over the past 24 hrs: No results found for this or any previous visit (from the past 24 hours). * Bernice Dias RN - 11/27/2024 9:20 AM CDT Notified provider about indwelling medrano catheter discussed removal or continued need. Did provider choose to remove indwelling medrano catheter? No Provider's medrano indication for keeping indwelling medrano catheter: Gross hematuria Is the catheter for retention? NO *If there is a plan to keep medrano catheter in place at discharge daily notification with provider is not necessary, but please add a notation in the treatment team sticky note that the patient will be discharging with the catheter. * Edwina Sanabria PA-C - 11/27/2024 7:28 AM CDT Subjective: States earlier this morning he had some bladder spasms which resolved with irrigation. No clots seen (confirmed with RN). Denies dyspnea, N/V with regular diet, significant abdominal pain. Does admit to some normal baseline orthostatic hypotension. AVSS Cr 0.99 WBC 6.3 Hgb 8.6 --> 7.0 --> 7.9 (s/p 1u pRBC) Objective: Temp (24hrs), Av.7 ??F (37.1 ??C), Min:97.7 ??F (36.5 ??C), Max:99.6 ??F (37.6 ??C) GENERAL: awake, alert, NAD. Laying in bed. EYES: no icterus HEAD, EARS, NOSE, MOUTH, AND THROAT: atraumatic, normocephalic CARDIAC: skin well perfused RESPIRATORY: breathing unlabored ABDOMEN: soft, non tender, non distended. No SP tenderness. : Medrano in place (light watermelon on slow rate CBI) SKIN/HAIR/NAILS: no visible rashes EXTREMITIES: No calf pain or LE edema PSYCHIATRIC: Speech: normal, Mood: normal, Affect: normal ASSESSMENT/PLAN: 69 yo M who presented on 11/24/2024 with right 8 mm ureteral stone, bladder stones,hydronephrosis, enlarged prostate, concern for UTI. Now POD day #3 s/p right stent placement (Dr. Turner). Complicated by periprostatic bleeding secondary to enlarged prostate with large median lobe. 22 Fr 3-way medrano in place with CBI running. - No indication for urologic surgical intervention planned today. Diet ordered. - Wean/titrate rate of CBI today to achieve light pink/clear outputs. Hand irrigate PRN for clots or obstruction. - CBI clamped and hand irrigated 120cc at 8:14AM, light watermelon red urine without clots - Trend Hgb; transfuse per IM - Plan for TOV prior to discharge - plan for tomorrow AM pending ability to wean CBI - Patient will likely need bladder outlet procedure at the time of kidney and bladder stone removal. Will plan for outpatient follow up with Dr. Carter to discuss surgical logistics. However, if Hgbcontinues to drop, may need to consider PAE while inpatient Case discussed with Dr. Turner. ADDM (9:05AM): Urine now mathis red after clamping and ambulation. CBI restarted on slow rate. ADDM (10:16AM): Will order repeat Hgb at 1pm. Dr. Carter may be able to do HoLEP either tomorrow or Wednesday, pending availability. Will make NPO accordingly if able to be scheduled. ADDM (1:50PM): HoLEP scheduled for tomorrow. NPO orders placed. Called and spoke with patient regarding HoLEP; patient consents. Repeat Hgb 8.5. ADDM (4:40PM): CBI clamped around 3:30PM. Urine is light watermelon. Hand irrigated 120cc, return is light pink. CBI disconnected for now but attach if needed and titrate accordingly. RN aware. Went over HoLEP procedure and expectations. Edwina Sanabria PA-C [facility] Pager: [phone] Office: [phone] * Sam Cast RN - 11/26/2024 6:55 PM CDT [id number] Patient is alert and oriented x4. Up with Ax1 gbw. Vitally stable on room air. Denies pain. Regulardiet. PIV SL. Medrano catheter in place, CBI at moderate rate - reddish/pink color. Hgb recheck in the am. Plan of care on going. * Jammie Cerna PA-C - 11/26/2024 8:38 AM CDT UROLOGY PROGRESS NOTE November 26, 2024 HPI/SUBJECTIVE: CBI continued yesterday into last night - moderate rate. Hand irrigated x2 ovenright with many small sized clots returned. Pt is comfortable, denies pain or spasms. Feeling well otherwise. This morning medrano outputs were pale pink upon my arrival on fast rate CBI. I performed hand irrigations with ~200 ml NS. Merdano irrigated easily, no clots returned. CBI resumed at moderate rate. Urine appeared clear/pale pink when I left. Hgb 8.6 --> 7.0 OBJECTIVE: BP 98/62 (BP Location: Right arm, Patient Position: Semi-Kaur's, Cuff Size: Adult Regular) Pulse 94 Temp 99.1 ??F (37.3 ??C) (Oral) Resp 16 Ht 1.778 m (5' 10) Wt 69.8 kg (153 lb 14.1 oz) SpO2 97% BMI 22.08 kg/m?? Intake/Output Summary (Last 24 hours) at 11/26/2024 0838 Last data filed at 11/26/2024 0709 Gross per 24 hour Intake 120 ml Output 150 ml Net -30 ml GENERAL: Awake alert, NAD. Sitting comfortably in bed. HEAD, EARS, NOSE, MOUTH, AND THROAT: atraumatic, normocephalic CARDIAC: skin well perfused RESPIRATORY: breathing unlabored ABDOMEN: soft, non tender, non distended, no rebound or guarding FLANKS: No CVAT bilaterally : 3-way Medrano draining clear pink urine on CBI. No SP tenderness. Hand irrigations performed, no clots returned. PSYCHIATRIC: Speech: normal Mood: normal Affect: normal ASSESSMENT/PLAN: 69 yo M who presented on 11/24/2024 with right 8 mm ureteral stone, bladder stones,hydronephrosis, enlarged prostate, concern for UTI. Now POD day #2 s/p right stent placement (Dr. Turner). Complicated by periprostatic bleeding secondary to enlarged prostate with large median lobe. 22 Fr 3-way medrano in place with CBI running. - No indication for urologic surgical intervention planned today. Diet ordered. - Wean/titrate rate of CBI today to achieve light pink/clear outputs. Hand irrigate PRN for clots or obstruction. - Trend Hgb - defer decision for transfusion to IM - Plan for TOV prior to discharge - hopefully tomorrow AM pending ability to wean CBI - Patient will likely need bladder outlet procedure at the time of kidney and bladder stone removal. Will plan for outpatient follow up with Dr. Carter to discuss surgical logistics. Jammie Cerna PA-C [facility] Office: [phone] During office hours you can reach me at my pager: [phone]. After 5:00 PM or on weekends, please call the office to be directed to the on-call urologist. 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 Possible right pyelonephritis Obstructing 8mm right UPJ stone with mild hydronephrosis S/p cystoscopy and right ureteral stent placement CT showed multiple bladder stones, prostamegaly and additional non obstructing right kidney stones.UA with some blood and bacteria but otherwise no nitrites, LE. Also interesting that no leukocytosis but had fever and encephalopathy which suggests infection. Started on ceftriaxone and vanco at OSH. -- Patient got admitted for further evaluation and management -- Continue ceftriaxone 2 g IV q24 hrs -- Repeated UA/UC - Labs reviewed showing elevated PSA of 11, urology following ( see below ) --Urology consult has been requested with plan for cystoscopy and ureteral stent placement -- Patient underwent cystoscopy with right stent placement with Dr. Turner on 11/24. -- Procedure was noticed to be complicated by need for indwelling Medrano catheter due to prostate bleeding secondary to enlarged prostate. -CBI was started patient was hand irrigated x 2 overnight -Hgb has downward trend , down to 7 this AM - NS 1000 ml bolus , 250 ml/hr X 4 hours - Blood transfusion consent obtained - Orders Placed for type and screen and transfusion for Hgb of 7 or below - Transfuse 1 unit PRBC today 11/25 -- Urine stays clear pink with moderate to slow CBI -- Urology recommending to make patient n.p.o. after midnight in case if patient needs to be taken back to the OR for possible cystoscopy, caudal block and fulguration of any bleeding although low suspicion that that would be necessary -- Continue Flomax -- Eventually patient will need bladder outlet procedure at the time of kidney and bladder stone removal in next few weeks - urology will see patient in an outpatient setting to discuss further surgical logistics Encephalopathy: resolved Likely due to fever and infection, improved with IVF and antipyretics. Head CT negative. No meningeal signs. Neuro exam is non focal and he already feels back to baseline so doubt CVA -- Patient seems to be completely at baseline since I took over care on 11/24/2024 -- Continue to treat infection as above Diet: Regular Diet Adult DVT Prophylaxis: Pneumatic Compression Devices Medrano Catheter: PRESENT, indication: Surgical procedure Lines: None Cardiac Monitoring: None Code Status: Full Code Clinically Significant Risk Factors Social Drivers of Health Received from [employer] Disposition Plan Medically Ready for Discharge: Anticipated Tomorrow if okay with urology Haley Tran MD Hospitalist Service [facility] Securely message with [employer] (more info) Text page via [employer] Paging/Directory Interval History Patient was seen and examined, discussed with patient regarding plan for transfusing 1 unit of packed red blood cell, hemoglobin is down to 7, consent obtained. Urology not planning to take patient to OR today but would like patient to be n.p.o. after midnightin case if they want to proceed with cystoscopy with fulguration if needed Patient was otherwise denying any chest pain, palpitations and shortness of breath. CBI was continued last night, he did require some hand irrigation intermittently but denying any severe bladder spasms. Physical Exam Vital Signs: Temp: 99.1 ??F (37.3 ??C) Temp src: Oral BP: 98/62 Pulse: 94 Resp: 16 SpO2: 97 % O2 Device: None (Room air) Weight: 153 lbs 14.1 oz Physical Exam Vitals and nursing note reviewed. Constitutional: Appearance: He is well-developed. HENT: Head: Normocephalic and atraumatic. Eyes: Pupils: Pupils are equal, round, and reactive to light. Neck: Thyroid: No thyromegaly. Cardiovascular: Rate and Rhythm: Normal rate and regular rhythm. Heart sounds: Normal heart sounds. Pulmonary: Effort: Pulmonary effort is normal. No respiratory distress. Breath sounds: Normal breath sounds. Abdominal: General: Bowel sounds are normal. There is no distension. Palpations: Abdomen is soft. Musculoskeletal: General: No tenderness. Normal range of motion. Cervical back: Normal range of motion and neck supple. Skin: General: Skin is warm and dry. Neurological: Mental Status: He is alert and oriented to person, place, and time. Psychiatric: Behavior: Behavior normal. Medical Decision Making 40 MINUTES SPENT BY ME on the date of service doing chart review, history, exam, documentation & further activities per the note. This time was spent in addition to the time spent by my colleague earlier this morning on admission Data I have personally reviewed the following data over the past 24 hrs: 6.3 \ 7.0 (L) / 163 135 104 17.7 / 109 (H) 4.0 23 0.99 \ ALT: 9 AST: 27 AP: 37 (L) TBILI: 0.4 ALB: 3.3 (L) TOT PROTEIN: 5.6 (L) LIPASE: N/A Imaging results reviewed over the past 24 hrs: No results found for this or any previous visit (from the past 24 hours). Recent Labs Lab 11/26/24 0704 11/25/24 1918 11/25/24 1002 11/25/24 0650 11/24/24 2221 11/24/24 1851 11/24/24 0655 WBC 6.3 -- -- 10.3 -- 12.6* 7.8 HGB 7.0* 8.6* 8.6* 9.5* < > 11.8* 13.2* MCV 93 95 94 95 < > 94 94 PLT 163 -- -- 205 -- 233 214 INR -- -- -- -- -- 1.19* -- NA 135 -- -- -- -- 138 136 POTASSIUM 4.0 -- -- -- -- 4.2 4.0 CHLORIDE 104 -- -- -- -- 105 106 CO2 23 -- -- -- -- 20* 18* BUN 17.7 -- -- -- -- 13.0 15.9 CR 0.99 -- -- -- -- 0.87 0.97 ANIONGAP 8 -- -- -- -- 13 12 ALEKS 8.4* -- -- -- -- 8.3* 9.0 GLC 109* -- -- -- -- 106* 101* ALBUMIN 3.3* -- -- -- -- -- -- PROTTOTAL 5.6* -- -- -- -- -- -- BILITOTAL 0.4 -- -- -- -- -- -- ALKPHOS 37* -- -- -- -- -- -- ALT 9 -- -- -- -- -- -- AST 27 -- -- -- -- -- -- < > = values in this interval not displayed. * Geronimo Carter MD - 11/25/2024 8:59 AM CDT [facility] Urology Progress Note Date of Service: 11/25/2024 Interval History Ongoing bleeding overnight, CBI POD#1 s/p cystoscopy, right stent placement. Complicated by need for indwelling Medrano catheter due to prostatic bleeding secondary to enlarged prostate. Otherwise upsized yesterday to 22 Croatian three-way. CBI started. Hand irrigated x 2 overnight. AVSS. Creatinine: Drawn yesterday and within normal limits at 0.87 Hemoglobin: 9.5 from 8.8 Medrano output: CBI - clear pink with moderate to slow CBI Assessment & Plan David Campbell is a 69 year old male who presented on 11/24/2024 with right 8 mm ureteral stone, bladder stones, hydronephrosis, enlarged prostate, concern for UTI. Now postop day #1 status post right stent placement. Complicated by periprosthetic bleeding secondary to enlarged prostate with large median lobe. Hemoglobin dropped significantly overnight. 22 Croatian three-way inserted and hand irrigated. CBI started. Hb 9.5 so does not appear any ongoing bleeding. Urine clearing with moderate to slow drip CBI. Titrated at the bedside. Maintain clear light pink color with moderate drip. Will continue to titrate throughout the day. Will make the patient n.p.o. after midnight in case bleeding worsens. If so, may require cystoscopycaudal block and possible fulguration of any bleeding. Low suspicion that this would be necessary Discussed case with Dr. Turner for this morning. Patient will likely need bladder outlet procedure at the time of kidney and bladder stone removal. Would like to see the patient as an outpatient to discuss surgical logistics. Discussed this with the patient at the bedside. Active Problems: Kidney stone Physical Exam Temp: [97.4 ??F (36.3 ??C)-101.2 ??F (38.4 ??C)] 98.6 ??F (37 ??C) Pulse: [80-100] 96 Resp: [14-27] 20 BP: (72-163)/(44-97) 108/78 SpO2: [94 %-100 %] 98 % Weights: Vitals: 11/24/24 0521 Weight: 69.8 kg (153 lb 14.1 oz) Body mass index is 22.08 kg/m??. Constitutional: Alert. Pleasant. No acute distress. CV: Perfusing well. Radial pulses strong. No lower extremity edema. Respiratory: No respiratory distress. Breathing unlabored. GI: Soft, nontender. Male : Clear pink urine via Medrano with . Titrated at the bedside. Skin: Warm and dry. Musculoskeletal: Moving all extremities approprietly. Data Recent Labs Lab 11/25/24 0650 11/25/24 0208 11/24/24 2221 11/24/24 1851 11/24/24 0655 WBC 10.3 -- -- 12.6* 7.8 HGB 9.5* 8.8* 10.5* 11.8* 13.2* MCV 95 92 96 94 94 PLT 205 -- -- 233 214 INR -- -- -- 1.19* -- NA -- -- -- 138 136 POTASSIUM -- -- -- 4.2 4.0 CHLORIDE -- -- -- 105 106 CO2 -- -- -- 20* 18* BUN -- -- -- 13.0 15.9 CR -- -- -- 0.87 0.97 ANIONGAP -- -- -- 13 12 ALEKS -- -- -- 8.3* 9.0 GLC -- -- -- 106* 101* Recent Labs Lab 11/24/24 1851 11/24/24 0655 GLC 106* 101* Unresulted Labs Ordered in the Past 30 Days of this Admission Date and Time Order Name Status Description 11/24/2024 5:15 PM Washings Aerobic Bacterial Culture Routine In process 11/24/2024 5:15 PM Anaerobic Bacterial Culture Routine In process Imaging Recent Results (from the past 24 hours) XR Surgery AMALIA L/T 5 Min Fluoro w Stills Narrative This exam was marked as non-reportable because it will not be read by a radiologist or a [place] non-radiologist provider. CT Abdomen Pelvis w/o Contrast Narrative EXAM: CT ABDOMEN PELVIS W/O CONTRAST LOCATION: [facility] DATE: 11/24/2024 INDICATION: kidney stones, hematuria, confirm medrano in bladder look for bladder distention COMPARISON: None. TECHNIQUE: CT scan of the abdomen and pelvis was performed without IV contrast. Multiplanar reformats were obtained. Dose reduction techniques were used. CONTRAST: None. FINDINGS: LOWER CHEST: Bibasilar atelectasis. HEPATOBILIARY: Liver and gallbladder within normal limits. PANCREAS: Normal. SPLEEN: Normal. ADRENAL GLANDS: Normal. KIDNEYS/BLADDER: Right ureteral stent noted within the interpolar region of the right kidney. 6 mm stone noted within the right collecting system. Few tiny 1 mm stone noted within the left kidney. Noleft hydronephrosis. BOWEL: Diverticulosis of the colon. No acute inflammatory change. No obstruction. LYMPH NODES: Normal. VASCULATURE: Normal. PELVIC ORGANS: Several stones are noted throughout the bladder measuring up to 1.8 cm. Prostatomegaly. Medrano catheter noted within the bladder. High density fluid noted within the bladder which may be related to hemorrhage or possible previous contrast administration. Small fat-containing right inguinal hernia. MUSCULOSKELETAL: Degenerative changes of the spine. Impression IMPRESSION: 1. Right ureteral stent with no evidence of hydronephrosis. 6 mm stone noted within the right collecting system. 2. Several stones are noted within the bladder measuring up to 1.8 cm. 3. High density fluid noted within the bladder which may be related to hemorrhage or possible previous contrast administration. Addendum: Rechecked on the patient this afternoon. Slow drip CBI with clear pink urine. When I turnthe CBI down further, urine becomes light mathis but still clear. Will run CBI overnight. Will havethe team reassess in the morning. Patient will be made n.p.o. after midnight. Unlikely to need surgical intervention as long as urine color continues to improve. We also discussed the use of Flomax and finasteride. Will start those medications tomorrow morning. 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 Possible right pyelonephritis Obstructing 8mm right UPJ stone with mild hydronephrosis S/p cystoscopy and right ureteral stent placement CT also shows multiple bladder stones, prostamegaly and additional non obstructing right kidney stones. UA with some blood and bacteria but otherwise no nitrites, LE. Also interesting that no leukocytosis but had fever and encephalopathy which suggests infection. Started [facility]ri[facility]one and [facility]anco [facility]. - Continue ceftriaxone 2 g IV q24 hrs - Repeated UA/UC - Labs reviewed showing elevated PSA of 11, procalcitonin is in normal range of 0.05, BMP showing normal electrolytes and renal function, CBC is showing normal WBC count with hemoglobin of 13.2. -Urology consult has been requested with plan for cystoscopy and ureteral stent placement - Patient underwent cystoscopy with right stent placement with Dr. Turner on 11/24. - Procedure was noticed to be complicated by need for indwelling Medrano catheter due to prostate bleeding secondary to enlarged prostate. CBI was started patient was hand irrigated x 2 overnight - Hgb checked this morning stable around 9.5 - Urine stays clear pink with moderate to slow CBI - Appreciate urology help, recommending to make patient n.p.o. after midnight in case of the bleeding worsened and patient needs to be taken back to the OR for possible cystoscopy, caudal block and fulguration of any bleeding although low suspicion that that would be necessary - Patient will be continued on Flomax - Eventually patient will need bladder outlet procedure at the time of kidney and bladder stone removal, urology will see patient in an outpatient setting to discuss further surgical logistics Encephalopathy Likely due to fever and infection, improved with IVF and antipyretics. Head CT negative. No meningeal signs. Neuro exam is non focal and he already feels back to baseline so doubt CVA - Patient seems to be completely at baseline since I took over care on 11/24/2024 morning - Continue to treat infection as above Diet: Regular Diet Adult DVT Prophylaxis: Pneumatic Compression Devices Medrano Catheter: PRESENT, indication: Surgical procedure Lines: None Cardiac Monitoring: None Code Status: Full Code Clinically Significant Risk Factors Social Drivers of Health Received from [employer] [facility] [employer] Disposition Plan Medically Ready for Discharge: Anticipated Tomorrow if okay with urology Haley Tran MD Hospitalist Service [facility] Securely message with [employer] (more info) Text page via [employer] Paging/Directory Interval History Patient was seen and examined, urology were also evaluating patient at bedside. Patient procedure was complicated by the presence of enlarged prostate, currently undergoing CBI, denying any chest pain or shortness of breath. Physical Exam Vital Signs: Temp: 98.6 ??F (37 ??C) Temp src: Oral BP: 108/78 Pulse: 96 Resp: 20 SpO2: 98 % O2 Device: None (Room air) Oxygen Delivery: 3 LPM Weight: 153 lbs 14.1 oz Physical Exam Vitals and nursing note reviewed. Constitutional: Appearance: He is well-developed. HENT: Head: Normocephalic and atraumatic. Eyes: Pupils: Pupils are equal, round, and reactive to light. Neck: Thyroid: No thyromegaly. Cardiovascular: Rate and Rhythm: Normal rate and regular rhythm. Heart sounds: Normal heart sounds. Pulmonary: Effort: Pulmonary effort is normal. No respiratory distress. Breath sounds: Normal breath sounds. Abdominal: General: Bowel sounds are normal. There is no distension. Palpations: Abdomen is soft. Musculoskeletal: General: No tenderness. Normal range of motion. Cervical back: Normal range of motion and neck supple. Skin: General: Skin is warm and dry. Neurological: Mental Status: He is alert and oriented to person, place, and time. Psychiatric: Behavior: Behavior normal. Medical Decision Making 45 MINUTES SPENT BY ME on the date of service doing chart review, history, exam, documentation & further activities per the note. This time was spent in addition to the time spent by my colleague earlier this morning on admission Data I have personally reviewed the following data over the past 24 hrs: 10.3 \ 9.5 (L) / 205 138 105 13.0 / 106 (H) 4.2 20 (L) 0.87 \ INR: 1.19 (H) PTT: 28 D-dimer: N/A Fibrinogen: 370 Imaging results reviewed over the past 24 hrs: Recent Results (from the past 24 hours) XR Surgery AMALIA L/T 5 Min Fluoro w Stills Narrative This exam was marked as non-reportable because it will not be read by a radiologist or a [place] non-radiologist provider. CT Abdomen Pelvis w/o Contrast Narrative EXAM: CT ABDOMEN PELVIS W/O CONTRAST LOCATION: [facility] DATE: 11/24/2024 INDICATION: kidney stones, hematuria, confirm medrano in bladder look for bladder distention COMPARISON: None. TECHNIQUE: CT scan of the abdomen and pelvis was performed without IV contrast. Multiplanar reformats were obtained. Dose reduction techniques were used. CONTRAST: None. FINDINGS: LOWER CHEST: Bibasilar atelectasis. HEPATOBILIARY: Liver and gallbladder within normal limits. PANCREAS: Normal. SPLEEN: Normal. ADRENAL GLANDS: Normal. KIDNEYS/BLADDER: Right ureteral stent noted within the interpolar region of the right kidney. 6 mm stone noted within the right collecting system. Few tiny 1 mm stone noted within the left kidney. Noleft hydronephrosis. BOWEL: Diverticulosis of the colon. No acute inflammatory change. No obstruction. LYMPH NODES: Normal. VASCULATURE: Normal. PELVIC ORGANS: Several stones are noted throughout the bladder measuring up to 1.8 cm. Prostatomegaly. Medrano catheter noted within the bladder. High density fluid noted within the bladder which may be related to hemorrhage or possible previous contrast administration. Small fat-containing right inguinal hernia. MUSCULOSKELETAL: Degenerative changes of the spine. Impression IMPRESSION: 1. Right ureteral stent with no evidence of hydronephrosis. 6 mm stone noted within the right collecting system. 2. Several stones are noted within the bladder measuring up to 1.8 cm. 3. High density fluid noted within the bladder which may be related to hemorrhage or possible previous contrast administration. Recent Labs Lab 11/25/24 0650 11/25/24 0208 11/24/24 2221 11/24/24 1851 11/24/24 0655 WBC 10.3 -- -- 12.6* 7.8 HGB 9.5* 8.8* 10.5* 11.8* 13.2* MCV 95 92 96 94 94 PLT 205 -- -- 233 214 INR -- -- -- 1.19* -- NA -- -- -- 138 136 POTASSIUM -- -- -- 4.2 4.0 CHLORIDE -- -- -- 105 106 CO2 -- -- -- 20* 18* BUN -- -- -- 13.0 15.9 CR -- -- -- 0.87 0.97 ANIONGAP -- -- -- 13 12 ALEKS -- -- -- 8.3* 9.0 GLC -- -- -- 106* 101* * Melissa Mcgowan RN - 11/24/2024 6:42 PM CDT Assumed care of pt in pacu 1830. * Pauline Goode RN - 11/24/2024 6:35 PM CDT Max temp 101.2 axillary, hospitalist notified, no changes, remains on antibiotics and Tylenol givenfor symptomatic WHITE. All other VS WDL. A/O, ambulating independently in room. PRN oxycodone given for pain rated 5/10 with relief. Skin intact. Pt reports upper extremity tremors at baseline. Pt karen tly in PACU but will be POD #0 of cystoscopy and R ureteral stent placement, returning with a CBI. 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 Possible right pyelonephritis Obstructing 8mm right UPJ stone with mild hydronephrosis CT also shows multiple bladder stones, prostamegaly and additional non obstructing right kidney stones. UA with some blood and bacteria but otherwise no nitrites, LE. Also interesting that no leukocytosis but had fever and encephalopathy which suggests infection. [facility] -Continue ceftriaxone 2 g IV q24 hrs -Repeat UA/UC - Obtain CBC, procal, BMP - Labs reviewed showing elevated PSA of 11, procalcitonin is in normal range of 0.05, BMP showing normal electrolytes and renal function, CBC is showing normal WBC count with hemoglobin of 13.2. -Urology consult has been requested with plan for cystoscopy and ureteral stent placement later this evening. -Patient will need follow-up surgery in the coming weeks for a stone treatment. -Start patient on Flomax 0.4 mg p.o. daily -will hold on additional vanco given likely urinary source and improvement in symptoms with IVF andantipyretics -IVF Encephalopathy Likely due to fever and infection, improved with IVF and antipyretics. Head CT negative. No meningeal signs. Neuro exam is non focal and he already feels back to baseline so doubt CVA. - Continue to treat infection as above - If has recurrent symptoms or develops focal symptoms would consider MRI of the brain Diet: NPO for Procedure/Surgery per Anesthesia Guidelines Except for: Meds; Clear liquids before procedure/surgery: ADULT (Age GREATER than or Equal to 18 years) - Clear liquids 2 hours before procedure/surgery DVT Prophylaxis: Pneumatic Compression Devices Medrano Catheter: Not present Lines: None Cardiac Monitoring: None Code Status: Full Code Clinically Significant Risk Factors Present on Admission Social Drivers of Health Received from [employer] [facility] [employer] Disposition Plan Medically Ready for Discharge: Anticipated Tomorrow Hospital medicine service would not be available to discharge patient late in the evening, unless urology would like patient to discharge postoperatively. Haley Tran MD Hospitalist Service [facility] Securely message with [employer] (more info) Text page via [employer] Paging/Directory Interval History Patient care was assumed this morning, patient was seen and examined. Patient is currently n.p.o. aware about plan for going for urology procedure late in the afternoon. Physical Exam Vital Signs: Temp: 97.7 ??F (36.5 ??C) Temp src: (P) Oral BP: (!) (P) 150/80 Pulse: (P) 79 Resp: (P) 18 SpO2: (P) 98 % O2 Device: (P) None (Room air) Weight: 153 lbs 14.1 oz Physical Exam Vitals and nursing note reviewed. Constitutional: Appearance: He is well-developed. HENT: Head: Normocephalic and atraumatic. Eyes: Pupils: Pupils are equal, round, and reactive to light. Neck: Thyroid: No thyromegaly. Cardiovascular: Rate and Rhythm: Normal rate and regular rhythm. Heart sounds: Normal heart sounds. Pulmonary: Effort: Pulmonary effort is normal. No respiratory distress. Breath sounds: Normal breath sounds. Abdominal: General: Bowel sounds are normal. There is no distension. Palpations: Abdomen is soft. Musculoskeletal: General: No tenderness. Normal range of motion. Cervical back: Normal range of motion and neck supple. Skin: General: Skin is warm and dry. Neurological: Mental Status: He is alert and oriented to person, place, and time. Psychiatric: Behavior: Behavior normal. Medical Decision Making 16 MINUTES SPENT BY ME on the date of service doing chart review, history, exam, documentation & further activities per the note. This time was spent in addition to the time spent by my colleague earlier this morning on admission Data I have personally reviewed the following data over the past 24 hrs: 7.8 \ 13.2 (L) / 214 136 106 15.9 / 101 (H) 4.0 18 (L) 0.97 \ Procal: 0.05 CRP: N/A Lactic Acid: N/A Imaging results reviewed over the past 24 hrs: No results found for this or any previous visit (from the past 24 hours). Recent Labs Lab 11/24/24 0655 WBC 7.8 HGB 13.2* MCV 94 PLT 214 NA 136 POTASSIUM 4.0 CHLORIDE 106 CO2 18* BUN 15.9 CR 0.97 ANIONGAP 12 ALEKS 9.0 GLC 101* documented in this encounter H&P Notes * Gte Figueroa DO - 11/24/2024 2:28 AM CDT [facility] History and Physical - Hospitalist Service Date of Admission: 11/24/2024 Assessment & Plan David Campbell is a 69 year old male with a history of kidney stones who is admitted on 11/24/2024 with confusion, obstructing right UPJ stone and possible pyelonephritis. Possible right pyelonephritis Obstructing 8mm right UPJ stone with mild hydronephrosis CT also shows multiple bladder stones, prostamegaly and additional non obstructing right kidney stones. UA with some blood and bacteria but otherwise no nitrites, LE. Also interesting that no leukocytosis but had fever and encephalopathy which suggests infection. [facility] -continue ceftriaxone 2 g IV q24 hrs -repeat UA/UC -obtain CBC, procal, BMP -urology consult -will hold on additional vanco given likely urinary source and improvement in symptoms with IVF andantipyretics -IVF Encephalopathy Likely due to fever and infection, improved with IVF and antipyretics. Head CT negative. No meningeal signs. Neuro exam is non focal and he already feels back to baseline so doubt CVA. -continue to treat infection as above -if has recurrent symptoms or develops focal symptoms would consider MRI of the brain Diet: NPO for Procedure/Surgery per Anesthesia Guidelines Except for: Meds; Clear liquids before procedure/surgery: ADULT (Age GREATER than or Equal to 18 years) - Clear liquids 2 hours before procedure/surgery DVT Prophylaxis: Pneumatic Compression Devices Code Status: Full Code, discussed with patient Disposition: pending urology consult and transition to oral abx Medically Ready for Discharge: Anticipated in 2-4 Days Clinically Significant Risk Factors Present on Admission Get Figueroa, Hospitalist Service [facility] Secure[employer] message with [employer] (more info) Text page via [facility] Paging/Directory Chief Complaint Right kidney stone, confusion History is obtained from the patient and review of records sent from ED. History of Present Illness David Campbell is a 69 year old male who has a history of kidney stones who presents to the ED at [place] for confusion, fever and subsequently transferred to [facility] with an 8mm obstructing right kidney stone and possibly UTI/pyelo. Patient notes that he has been out of sorts a bit the past few days describing feeling like he has been somewhat confused and that he couldn't trust his brain. He notes that he is healthy at baseline, doesn't take any regular meds and only has a diagnosis of kidney stones. Per report his found him about noon on confused, having word finding difficulties, having difficulty with his gait and also noted that his baseline tremors were worse. Sh saurav noted that he felt very warm like he had a fever. He was brought to the ED where work up commenced with a normal BMP, CBC, EKG, CXR and head CT. UA showed a few bacteria and blood with RBCs. Abdominal CT shows 8mm obstructing right UPJ stone with mild inflammation around the collecting system, mild right hydronephrosis, multiple stones in the bladder, prostamegaly and additional non obstructingright kidney stones. Lactate initially 2.0, improved to 1.1 after IVF. Started on ceftriaxone and vanco for possible urosepsis. He was transferred to [facility] for possible urologic intervention. When I saw the patient on the surgical floor he notes that he feels much improved and almost back to normal in terms of mentation. He does not feel cloudy or confused and recalls the events of the day. He knows that he was transferred to [place] and clear answers questions appropriately. He denies any chest pain, cough, shortness of breath, abdominal pain, GI symptoms. He denies dysuria, urine sediment or malodor. No back pain, neck pain or stiffness, headache, vision changes, sore throat. No recent travel. He does drink 1-2 drinks per night but hasn't had anything to drink for the past week. Past Medical History Past Medical History: Diagnosis Date Kidney stone Past Surgical History No past surgical history on file. Prior to Admission Medications None Review of Systems The 10 point Review of Systems is negative other than noted in the HPI or here. Physical Exam Vital Signs: Temp: (P) 98.2 ??F (36.8 ??C) Temp src: (P) Oral BP: (!) (P) 150/80 Pulse: (P) 79 Resp: (P) 18 SpO2: (P) 98 % O2 Device: (P) None (Room air) Weight: 0 lbs 0 oz Gen: lying in bed, appears comfortable CV: RRR, no m/r/g Pulm: CTAB, no wheeze or rhonchi HEENT: oropharnx clear, PERRL, EOMFI GI: +BS, soft, NT/ND. Mild right flank tenderness with kp's test Lymph: no edema Neuro: negative pronator drift. Muscle strength intact in upper and lower extremities. No sensationdeficits. Finger/nose/finger, blind finger nose testing normal though does have an intention tremoron the left which he notes is chronic and not significantly changed. Heal patricia testing normal bilaterally. No focal deficits. Medical Decision Making 70 MINUTES SPENT BY ME on the date of service doing chart review, history, exam, documentation & further activities per the note. Data Imaging results reviewed over the past 24 hrs: No results found for this or any previous visit (from the past 24 hours). documented in this encounter Consult Notes * Debbie Villalta PA-C - 11/24/2024 7:57 AM CDTAssociated Order(s): UROLOGY IP CONSULT [facility] Inpatient Consultation Note David Campbell Age: [age] year old Date of : 1955 Date of Admission: 11/24/2024 Reason for consult: Stones Requesting physician: Dr. Figueroa History of Present Illness: David Campbell is a pleasant 69 year old year old male who presented to outside hospital on e to confusion and fever. Found to have 8 mm right ureteral stone, bladder stones, right renal stones, hydronephrosis, enlarged prostate, and concern for UTI so was transferred to [facility] for urology consult . He does have a history of nephrolithiaiss and has needed surgery in the past- several years ago. Was given rocephin prior to transfer. He has not been having any flank pain, dysuria, gross hematuria, nausea, vomiting or change in baseline urination. Says he does have a weak urine stream, but usually feels he can empty well. Sometimes will double void. Nocturia x1. 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 No prior PSA to review. No known family history of pros cancer Past Medical History: Past Medical History: Diagnosis Date Kidney stone Past Surgical History: No past surgical history on file. Social History: Social History Socioeconomic History Marital status: Not on file Spouse name: Not on file Number of children: Not on file Years of education: Not on file Highest education level: Not on file Occupational History Not on file Tobacco Use Smoking status: Not on file Smokeless tobacco: Not on file Substance and Sexual Activity Alcohol use: Not on file Drug use: Not on file Sexual activity: Not on file Other Topics Concern Not on file Social History Narrative Not on file Social Drivers of Health Financial Resource Strain: Low Risk (08/20/2021) Received from [employer] [facility] Financial Resource Strain Difficulty of Paying Living Expenses: 3 Difficulty of Paying Living Expenses: Not on file Food Insecurity: No Food Insecurity (08/20/2021) Received from [facility] Food Insecurity Worried About Running Out of Food in the Last Year: 1 Transportation Needs: No Transportation Needs (08/20/2021) Received from [facility] Transportation Needs Lack of Transportation (Medical): 1 Physical Activity: Not on file Stress: Not on file Social Connections: Unknown (09/07/2022) Received from [facility] Social Connections Frequency of Communication with Friends and Family: Not on file Interpersonal Safety: Not on file Housing Stability: Low Risk (08/20/2021) Received from [facility] Housing Stability Unable to Pay for Housing in the Last Year: 1 Family History: No family history on file. Immunizations: There is no immunization history on file for this patient. Allergies: Allergies Allergen Reactions Shellfish-Derived Products Medications: Current Facility-Administered Medications Medication Dose Route Frequency Provider Last Rate Last Admin acetaminophen (TYLENOL) tablet 650 mg 650 mg Oral Q4H PRN Get Figueroa DO Or acetaminophen (TYLENOL) Suppository 650 mg 650 mg Rectal Q4H PRN Get Figueroa DO calcium carbonate (TUMS) chewable tablet 1,000 mg 1,000 mg Oral 4x Daily PRN Get Figueroa DO cefTRIAXone (ROCEPHIN) 2 g vial to attach to NS 100 ml bag for ADULTS or NS 50 ml bag for PEDS 2 g Intravenous Q24H Get Figueroa DO HYDROmorphone (DILAUDID) injection 0.2 mg 0.2 mg Intravenous Q2H PRN Get Figueroa DO HYDROmorphone (DILAUDID) injection 0.4 mg 0.4 mg Intravenous Q2H PRN Get Figueroa DO lidocaine (LMX4) cream Topical Q1H PRN Get Figueroa DO lidocaine 1 % 0.1-1 mL 0.1-1 mL Other Q1H PRN Get Figueroa DO naloxone (NARCAN) injection 0.2 mg 0.2 mg Intravenous Q2 Min PRLucinda Rose MD Or naloxone (NARCAN) injection 0.4 mg 0.4 mg Intravenous Q2 Min PRN Lucinda Jameson MD Or naloxone (NARCAN) injection 0.2 mg 0.2 mg Intramuscular Q2 Min Lucinda Marin MD Or naloxone (NARCAN) injection 0.4 mg 0.4 mg Intramuscular Q2 Min PRLucinda Rose MD ondansetron (ZOFRAN ODT) ODT tab 4 mg 4 mg Oral Q6H PRN Get Figueroa DO Or ondansetron (ZOFRAN) injection 4 mg 4 mg Intravenous Q6H PRN Get Figueroa DO oxyCODONE (ROXICODONE) tablet 5 mg 5 mg Oral Q4H PRN Get Figueroa DO oxyCODONE IR (ROXICODONE) half-tab 2.5 mg 2.5 mg Oral Q4H PRN Get Figueroa DO polyethylene glycol (MIRALAX) Packet 17 g 17 g Oral BID PRN Get Figueroa DO prochlorperazine (COMPAZINE) injection 5 mg 5 mg Intravenous Q6H PRN Get Figueroa DO Or prochlorperazine (COMPAZINE) tablet 5 mg 5 mg Oral Q6H PRN Get Figueroa DO senna-docusate (SENOKOT-S/PERICOLACE) 8.6-50 MG per tablet 1 tablet 1 tablet Oral BID PRN Get Figueroa DO Or senna-docusate (SENOKOT-S/PERICOLACE) 8.6-50 MG per tablet 2 tablet 2 tablet Oral BID PRN Get Figueroa DO sodium chloride (PF) 0.9% PF flush 3 mL 3 mL Intracatheter Q8H YOANA Get Figueroa DO sodium chloride (PF) 0.9% PF flush 3 mL 3 mL Intracatheter q1 min prn Get Figueroa DO sodium chloride 0.9 % infusion Intravenous Continuous Get Figueroa DO 75 mL/hr at 11/24/24 0615 New Bag at 11/24/24 0615 Review of Systems: Comprehensive review of systems from the Admission note dated 11/24 at [facility] was reviewed with no changes except per HPI. Examination: BP (!) (P) 150/80 (BP Location: Right arm) Pulse (P) 79 Temp 97.7 ??F (36.5 ??C) Resp (P) 18 Ht 1.778 m (5' 10) Wt 69.8 kg (153 lb 14.1 oz) SpO2 (P) 98% BMI 22.08 kg/m?? General: Alert and oriented, no distress. HEENT: Face symmetric, atraumatic. Eyes: No scleral icterus, EOM intact. Neck: Symmetric. Chest wall: Symmetric. Respiratory: Breathing unlabored, no signs of respiratory distress. Cardiac: Extremities warm and well perfused. Abdomen: Soft, non tender, non distended. Back: No CVA or flank tenderness Extremities: No evidence of deformities or trauma. Neuro: Grossly non focal. Pysch: Normal mood and affect. Skin: No evident rashes or lesions. Data: Lab Results Component Value Date WBC 7.8 11/24/2024 Lab Results Component Value Date RBC 4.22 11/24/2024 Lab Results Component Value Date HGB 13.2 11/24/2024 Lab Results Component Value Date HCT 39.6 11/24/2024 Lab Results Component Value Date PLT 214 11/24/2024 Creatinine Date Value Ref Range Status 11/24/2024 0.97 0.67 - 1.17 mg/dL Final ] Lab Results Component Value Date BUN 15.9 11/24/2024 Imaging: images reviewed in PACs system. Ct scan from 11/23 Huge prostate with large median lobe, several large bladder stones, right renal stones, right UPJ stone with associated hydronephrosis, thick bladder wall. Assessment/Plan: 69 year old male diagnosed with right UPJ stone, hydronephrosis, right renal stones, possible UTI, bladder stones, enlarged prostate. - NPO - Will plan for OR today for cystoscopy and ureteral stent placement. Around 4:30 pm - Discussed stent expectations with patient today. - Will need follow up surgery in the coming weeks for stone treatment - ureteral, renal and bladderstones. - Will obtain PSA for baseline. - Consider flomax for LUTs and stent discomfort. - Possibly able to discharge home after surgery today. I have discussed the patient with attending physician, Dr. Turner, Urology Debbie Villalta ([place]), [facility] Cosigned by Franky Turner MD at 12/06/2024 9:34 AM CDT Associated attestation - Franky Turner MD - 12/06/2024 9:34 AM CDT Physician Attestation I evaluated David Campbell as part of a shared AIR CONTROL/[employer]I [employer] WARFARE OFFICER/PA visit. I personally reviewed the vital signs, labs, and imaging. I personally provided a substantive portion of care for this patient and I approve the care plan aswritten by the ELMIRA. I was involved with Medical Decision Making including: Franky Turner MD Date of Service 11/24/24 I consented the patient for the procedure with risks and benefits documented in this encounter Nursing Notes * Melissa Mcgowan RN - 11/24/2024 9:05 PM CDT OK by SANJU Trammell to transfer back to the floor. Personal belongings left in pt room. Spouse Angelica called with the room number. * Lashell Villalta RN - 11/24/2024 8:[address] Turner called to check on pt. Hemoglobin every 4 hours and notify if less than 8.0. keep continous bladder irrigation and hand irrigate as needed for clots. Call with any concerns. documented in this encounter Miscellaneous Notes * Plan of Care - Viky Jolly RN - 11/29/2024 3:52 PM CDT Date & Time: 11/29 0700-discharge Surgery/POD#: 1 HoLEP Behavior & Aggression: Green Fall Risk: No Orientation:A&Ox4 ABNL VS/O2:VSS ABNL Labs: Hgb 8.4 Pain Management:Denies Bowel/Bladder: Medrano removed - PVR 4, 24. Dribbling Drains: PIV removed Wounds/incisions: NA Diet:Tolerating regular Number of times OUT OF BED this shift Ambulating in room independently Tests/Procedures: NA Anticipated DC Date: Home today Significant Information: baseline tremor to BUE * Plan of Care - Ofelia Valente RN - 11/29/2024 5:54 AM CDT Goal Outcome Evaluation: Plan of Care Reviewed With: patient Overall Patient Progress: improvingOverall Patient Progress: improving POD 1 Cystoscopy, WITH HOLMIUM LASER ENUCLEATION OF THE PROSTATE. POD 5 Cysto w/R ureteral stent. A&Ox4. VSS on RA. Denies pain. Tolerating regular diet. PIV SL. Medrano with light pink, CBI running at slow rate. Hypo BS, passing small gas, no BM. Up SBA w/ gt/IV pole, ambulated in room & halls x1 overnight. Urology following. Plan to pullout the medrano, void trail, then possible discharge home today. * Plan of Care - Jammie Lara RN - 11/28/2024 10:45 PM CDT Surgery/POD#: POD 0 s/p cysto w/ HoLEP. POD 4 s/p cysto w/ R ureteral stent Orientation: A&Ox4, forgetful at times ABNL VS/O2: VSS on RA ABNL Labs: Hgb 8.2 Pain Management: PRN Tylenol & Oxycodone for urethral discomfort Bowel/Bladder: Medrano w/ CBI at moderate-slow rate--light pink in color, no clots. Drains: PIV SL Diet: Regular Activity Level: Ax1 gb Anticipated DC Date: Possibly home tomorrow pending TOV Significant Information: Baseline BUE tremors. * Op Note - Geronimo Carter MD - 11/28/2024 3:34 PM CDT Date: 11/28/2024 Pre-op Dx: BPH with lower urinary tract symptoms, urinary retention, bladder stones Post-op Dx: Same Findings Successful HoLEP Cystolitholapaxy Total Enucleation Time: 41 minutes 00 seconds Total Morcellation Time: 41 minutes 00 seconds. Preoperative Prostate Size: 140 cubic centimeters. Tissue obtained: 85 g Laser Settings Used: Enucleation 2 J, 40 Hz. Hemostasis 1.2 J, 30 Hz. Complications: none Blood loss: 20 cc Narrative: The patient was brought to OR #30 and after good general anesthesia was achieved, the patient was prepped and draped in dorsal lithotomy position. All pressure points were padded. The patient's bladder was first entered with a 22-Croatian rigid cystoscope with 0-degree lens. Cystoscopic examination showed normal anterior urethra. The posterior urethra showed bilobar enlargement of the prostate. Both ureteral orifices were identified away from the bladder neck. The rest of the examination was normal. The cystoscope was removed and the meatus was calibrated to 28- Croatian using sounds. The urethra was then filled with lubricant gel and a 26- Croatian Storz continuous-flow resectoscope was placed. The holmium laser apparatus was placed through the sheath. Using a 550-micron end-firing laser fiber with 10 cm of cladding stripped off, a laser bridge, and a ?-Croatian laser stabilizing catheter, the procedure was started with the above-mentioned laser setting. We turned our attention to the bladder stone. There was 6 stones seen within the dependent portion of the bladder. These measured roughly 6 cm in total. Greatest stone was 2 cm. The laser was utilized to break the stones into tiny dust like fragments. This stone dust filtered out through the scope and into a collection basket. Stones were sent off for analysis. The bladder was reexamined. No addit ional stones or stone fragments identified. A whole gland nucleation technique was performed. Initial incisions were made the posterior bladderwall near the verumontanum. Capsule was identified in the posterior plane was developed. Meticulousdissection was undertaken at the apex of the prostate at the interface between the prostatic tissueand the sphincter muscle. Mucosa was scored circumferentially and the incision was deepened until the lateral planes met the posterior plane which was previously developed. Anterior mucosal bridge was incised and the anterior surface of the transition zone was developed in the 6 o'clock position from apex to bladder neck. Once the bladder neck was identified. The lateral aspects of the bladder neck were identified. These were deepened until they met the previously dissected lateral lobes on both the right and left side. Finally the bladder was entered and the bladder neck fibers were dissected away from the prostatic gland. At this point the posterior lateral attachments of the transition zone were developed from apex to bladder neck until the entire lobe was freed from its surrounding att achments. Once the lobe was fully enucleated, the laser was defocused to get meticulous percise hemostasis onany remaining sources of bleeeding. There was good hemostasis at the conclusion of the procedure. The laser bridge apparatus and the inner portion of the resectoscope were then removed and the offset Storz nephroscope and Blanca - Tyler tissue morcellator were then introduced and used to completely morcellate the tissue. Two inflows were used during this portion of the procedure to fully distend the bladder and to prevent any inadvertent bladder injury. The bladder was then ellik'd out and reinspected showing no residual adenomas. Hemostasis was rechecked at the conclusion of the procedure and both ureteral orifices were confirmed and identified well away from the area of resection. No residual adenoma could be identified. A three-way 22 Fr Medrano catheter on a guide was placed into the bladder and the balloon was filled with 70 cc. The bladder was irrigated and continuous bladder irrigation was initiated during recovery. The patient received 20 mg of IV Lasix at the conclusion of the case. Tranexamic acid was given. The patient tolerated the procedure well and was transfered to recovery in good condition. 22 modifier for multiple procedures under the same anesthesia with multiple bladder stones and verylarge prostate with neovascularity related to inflammation from bladder stones and previous surgery Plan: Full continuous bladder irrigation overnight Fill and pull tomorrow AM, urology team to round tomorrow AM and advise * Plan of Care - Whit Escobar RN - 11/28/2024 3:01 PM CDT Orientation: alert and oriented x4 Vitals/Tele: vitals stable on room air, denies pain this shift IV Access/drains: L PIV SL- dressing changed, medrano with peach output @ slow- moderate CBI Diet: NPO Mobility: SBA GI/: medrano, continent of bowel Wound/Skin: intact Consults: urology Discharge Plan: pending clinical improvement See Flow sheets for assessment * Plan of Care - Ave Dudley RN - 11/28/2024 8:41 AM CDT Goal Outcome Evaluation: Plan of Care Reviewed With: patient Overall Patient Progress: improvingOverall Patient Progress: improving Date & Time: 0-0730 Surgery/POD#: POD 3-4 Cysto w/R ureteral stent Behavior & Aggression: Green Fall Risk: Yes Orientation: A&Ox4 ABNL VS/O2: VSS on Ra ABNL Labs: Hgb 8.5 Pain Management: Denies Bowel/Bladder: BS active +gas/+stool. Medrano with CBI running (slow-moderate) Drains: CBI medrano with pink to red output, PIV SL Wounds/incisions: N/A Diet: Regular, denies N/V Number of times OUT OF BED this shift: Ambulating in halls and in room frequently Tests/Procedures: Plan for Holep procedure tomorrow Anticipated DC Date: Pending Significant Information: CMS intact ex baseline tremors. LS clear, IS encouraged. Denies bladder spasms. Plan for Npo at midnight. X1 CHG wipes done * Plan of Care - Leoncio Chaudhry RN - 11/27/2024 6:30 PM CDT Date & Time: 11/27/24 2171-0412 Surgery/POD#: POD3 Cysto w/R ureteral stent Behavior & Aggression: Green Fall Risk: Yes Orientation:A&Ox4 ABNL VS/O2:VSS on Ra ABNL Labs: Hgb 7.9,8.5 Pain Management:Denies Bowel/Bladder: BS active +gas/+stool. Medrano with CBI clamped/disconnected by Urology Drains: CBI medrano with pink to red output (some small noted clots with movement), PIV SL Wounds/incisions: N/A Diet:Regular, denies N/V Number of times OUT OF BED this shift: Ambulating in halls and in room frequently Tests/Procedures: Plan for Holep procedure tomorrow Anticipated DC Date: Pending Significant Information: CMS intact ex baseline tremors. LS clear, IS encouraged. Denies bladder spasms. Urology attempted clamping trial this morning but CBI was restarted. Did receive 1 unit of PRBC yesterday, hgb stable and VSS. Plan for Npo at midnight. 16:40: patient clamped/disconnected from CBI by Urology after they hand irrigated (see note). * Plan of Care - Jammie Lara RN - 11/27/2024 6:48 AM CDT Surgery/POD#: POD #3 s/p cysto w/ R ureteral stent Orientation: A&Ox4, forgetful at times ABNL VS/O2: VSS on RA ABNL Labs: Hgb 7.0--1 unit PRBC yesterday Pain Management: PRN Tylenol & B&O suppository for bladder spasms/urethral discomfort Bowel/Bladder: Medrano w/ CBI at moderate-slow rate--mainly light pink in color. Manual irrigation [id number]--cs clots. Drains: PIV SL Diet: Regular Activity Level: Ax1 gb Anticipated DC Date: Possibly home later today pending possible TOV Significant Information: Baseline BUE tremors. * Plan of Care - Pauline Goode RN - 11/26/2024 2:30 PM CDT Date & Time: 11/26/24 [id number] Surgery/POD#: POD #2 s/p cysto, R kidney washing, R ureteral stent and CBI placement. Behavior & Aggression: Green, can be forgetful Fall Risk: Yes, low Hgb, some dizziness/unsteadiness Orientation:A/O, forgetful ABNL VS/O2:Some soft BPs, IVF bolus of 1000mL ordered and given. All other VS WDL ABNL Labs: Hgb 7.0, MD notified, blood ordered and 1 unit given, plan to redraw in AM per Tran. Pain Management: Denies most pain, PRN B&O suppositories available and PRN Tylenol Bowel/Bladder: CBI running at a moderate rate with pink urine output. Irrigated x1 with one small clot returned. Drains: PIV on L infusing Wounds/incisions: Medrano catheter, CBI Diet:Regular diet, tolerating Number of times OUT OF BED this shift: ambulated in halls x1, some weakness/dizziness Tests/Procedures: n/a Anticipated DC Date: possible TOV and discharge tomorrow. Significant Information: Baseline BUE tremors. Hgb checks every 12 hours, 1 unit blood given today.Pt has an increase in bleeding/clots easily with any movement or attempts to titrate the CBI down. He has been running at a moderate rate for much of the day. * Provider Notification - Pauline Goode RN - 11/26/2024 8:11 AM CDT MD Notification Notified Person: MD Notified Person Name: Tran Notification Date/Time:11/26/24 4112 Notification Interaction: texted with MD Purpose of Notification:Pt hgb is 7.0, have paged this out to urology. Also have been unable to wean CBI and still irrigating for clots Orders Received: MD will order type and screen, get blood consent signed and order transfusion. MD also ordered bolus. Comments: * Provider Notification - Pauline Goode RN - 11/26/2024 7:49 AM CDT MD Notification Notified Person: MD Notified Person Name: Page line reports rounding/on-call as Luis Notification Date/Time:11/26/24719 Notification Interaction: Paged MD Purpose of Notification: Hgb has a drop to 7.0 from 8.6 Orders Received: awaiting response Comments: * Plan of Care - Jammie Lara RN - 11/26/2024 6:37 AM CDT Surgery/POD#: POD #2 s/p cysto, R kidney washing, R ureteral stent Orientation: A&Ox3-4, forgetful ABNL VS/O2: VSS on RA, soft BP ABNL Labs: Hgb 8.6 Pain Management: PRN Oxycodone, Tylenol, Levsin & B&O suppository. Bowel/Bladder: Medrano w/ CBI at moderate rate--mainly light pink in color. Hand irrigated x2--many small sized clots. Drains: PIV SL Diet: Regular, NPO since midnight Activity Level: Ax1 gb Anticipated DC Date: Pending Significant Information: Baseline BUE tremors. * Plan of Care - Pauline Goode RN - 11/25/2024 7:34 PM CDT Surgery/POD#: POD #1 s/p cysto, R kidney washing, R ureteral stent Orientation: A/O ABNL VS/O2: VSS ABNL Labs: Hgb 8.6 Pain Management: Denies most pain. PRN Oxy & Tylenol available. B&O and Tylenol given this AM for bladder spasms. Bowel/Bladder: Medrano w/ CBI moderate/fast rate--mathis to pink in color. Hand irrigated for retention x2 which returned a few small and medium sized clots. Drains: PIV SL, fluids discontinued today. Diet: Regular Activity Level: SBA Anticipated DC Date: Pending Significant Information: Baseline BUE tremors. Hgb checks every 12 hours. Pt has an increase in bleeding/clots easily with any movement or attempts to titrate the CBI down. He has been running at a fast or moderate rate for much of the day. * Plan of Care - Jammie Lara RN - 11/25/2024 6:25 AM CDT Surgery/POD#: POD #1 s/p cysto, R kidney washing, R ureteral stent Orientation: A&Ox4, forgetful ABNL VS/O2: VSS on RA, soft BP at times ABNL Labs: WBC 12.6, Hgb 13.2-11.8-10.5-8.8 Pain Management: PRN Oxy & Tylenol. Bowel/Bladder: Medrano w/ CBI at fast rate--enamel buffer pink in color this AM. Hand irrigated x2--severalsmall to moderate sized clots. Drains: PIV infusing NS at 75 ml/hr Diet: Regular Activity Level: Ax1 gb Anticipated DC Date: Pending Significant Information: Baseline BUE tremors. * Op Note - Franky Turner MD - 11/24/2024 6:44 PM CDT UROLOGY OPERATIVE REPORT PREOP DIAGNOSIS Right UPJ stone POSTOP DIAGNOSIS Same ANESTHESIA Choice PROCEDURE Procedure(s): RIGHT KIDNEY WASHING, RIGHT URETERAL STENT INSERTION, RIGHT RETROGRADE PYELOGRAM, CYSTOSCOPY STAFF Audit Practice Intern: Ezra Duarte RN; Ramesh Hoffman RN Scrub Person: Lalitha Diehl; Issa Barcenas SURGEON Surgeon(s): Franky Turner MD FINDINGS Clear urine from right kidney; bladder cystitis, stones in the bladder times 4; very large prostatewith medial lobe of prostate; significant bleeding upon Medrano placement; CBI is initiated EBL 300cc at the end of the case TECHNIQUE INDICATIONS FOR THE PROCEDURE: This is a 25-glmy-bwd-year-old man with a history of 8 mm obstructing right ureteral stone and signs of infection who has been transferred to [facility] from [place] for stent placement. Unfortunately I was not able to review images myself done at [facility]. But I thoroughly reviewed the report with the patient and consented him for the above procedure. He understands the risks of the bleeding infection injury but most importantly need for additional surgeries given the presence of stones large prostate and sometimes inability to put a stent. Details of the procedure Patient was brought to the operating room placed in supine position. After excellent induction of general anesthesia his perineum was prepped and draped in regular fashion. 22 Croatian cystoscope was placed per his urethra. Evaluation of the prostate demonstrated very long large prostate with a very large median lobe protruding into the bladder. There was significant trabeculation of the bladder and distention of the bladder present. I had a very difficult time visualizing the right ureteral orifice given significant edema cystitisat the trigone area presence of large bladder stones. Once the ureteral orifice was cannulated I placed the Glidewire all the way to the right renal pelvis under fluoroscopic guidance. Right retrograde was obtained and demonstrated single collecting system. And fluid from the right kidney was obtained that appears to be nonpurulent which was sent for culture. 6 x 28 double-J ureteral stent was placed with some difficulty but appears in good position on the fluoroscopy. At the completion of the procedure I did have some loose from the prostatic fossa so I placed 20 Medrano catheter. I got called since the 20 Croatian Merdano catheter got clotted and I had to replace his 422 three-way Medrano catheter. After manual irrigation I started CBI which still appears to be quite bloody. The plan is to keep CBI running, obtain a CAT scan to look for any clots in the bladder, check his serial hemoglobin, transfuse as needed, and also check his coags concerning for coagulopathy associated with urosepsis. His Angelica was updated on the status of his gross hematuria that he might even require blood transfusion. Franky Turner MD * Pharmacy-Admission Medication History - Jammie Benson RPH - 11/24/2024 9:31 AM CDT Pharmacist Admission Medication History Admission medication history is complete. The information provided in this note is only as accurateas the sources available at the time of the update. Information Source(s): Patient and CareEverywhere/SureScripts via in-person Pertinent Information: None Changes made to SHEET [employer] medication list: Added: all meds Deleted: None Changed: None Allergies reviewed with patient and updates made in EHR: yes Medication History Completed By: Jammie Benson RPH 11/24/2024 9:31 AM [employer] Med List Medication Sig Last Dose/Taking acetaminophen (TYLENOL) 500 MG tablet Take 500-1,000 mg by mouth every 8 hours as needed for mild pain. Taking As Needed Cholecalciferol (VITAMIN D-3 PO) Take 1 tablet by mouth every morning. Taking magnesium oxide 400 MG tablet Take 400 mg by mouth every morning. Taking Menaquinone-7 (VITAMIN K2 PO) Take 1 tablet by mouth every morning. Taking * Plan of Care - Killian Burgos RN - 11/24/2024 6:02 AM CDT Goal Outcome Evaluation: Pt A&Ox4, forgetful at times. VSS on RA , denied pain , SOB, chest pain. Up independently to BR. NPO. IV fluid infusing. urology consult documented in this encounter Plan of Treatment Not on file documented as of this encounter Procedures Procedure Name Priority Date/Time Associated Diagnosis Comments HEMOGLOBIN STAT 11/29/2024 7:43 AM CDT GLUCOSE BY METER Routine 11/29/2024 5:51 AM CDT SURGICAL PATHOLOGY EXAM Routine 11/29/19 5:27 PM CDT STONE ANALYSIS Routine 11/28/2024 3:42 PM CDT LASER ENUCLEATION PROSTATE W MORCELLATION 11/28/2024 3:10 PM CDT Benign prostatic hyperplasia with lower urinary tract symptoms Special Needs Scheduled(23JUL)Fortec(Tejal)Holmium tech only(confirmation# [id number])90 MIN REQ CURRENT INPATIENT CYSTOURETHROSCOPY 11/28/2024 3:1 0 PM CDT Benign prostatic hyperplasia with lower urinary tract symptoms Special Needs Scheduled(23JUL)Fortec(Etjal)Holmium tech only(confirmation# [id number])90 MIN REQ CURRENT INPATIENT HEMOGLOBIN Routine 11/28/2024 10:39 AM CDT HEMOGLOBIN Timed 11/27/2024 12:57 PM CDT CBC WITH PLATELETS Routine 11/27/2024 7: 44 AM CDT CONDITIONAL TRANSFUSE RED BLOOD CELLS (UNIT) Routine 11/26/2024 11:11 AM CDT CONDITIONAL PREPARE RED BLOOD CELLS (UNIT) Routine 11/26/2024 10:19 AM CDT TYPE AND SCREEN, ADULT STAT Add-on 7:04 AM CDT COMPREHENSIVE METABOLIC PANEL Routine 11/26/2024 7:04 AM CDT ABO/RH TYPE AND SCREEN STAT Add-on 7:04 AM CDT CBC WITH PLATELETS Routine 11/26/2024 7: 04 AM CDT HEMOGLOBIN Timed 11/25/2024 7:18 PM CDT HEMOGLOBIN Timed 11/25/2024 10:02 AM CDT CBC WITH PLATELETS Routine 11/25/2024 6: 50 AM CDT HEMOGLOBIN Timed 11/25/2024 2:08 AM CDT HEMOGLOBIN Timed 11/24/2024 10:[address] ABDOMEN PELVIS W/O CONTRAST STAT 11/24/2024 7:26 PM CDT TYPE AND SCREEN, ADULT STAT 6:51 PM CDT INR STAT 11/24/2024 6:51 PM CDT PARTIAL THROMBOPLASTIN TIME STAT 11/24/2024 6:51 PM CDT FIBRINOGEN ACTIVITY Routine 11/24/2024 6 :51 PM CDT ABO/RH TYPE AND SCREEN STAT 6:51 PM CDT BASIC METABOLIC PANEL STAT 11/24/2024 6:51 PM CDT CBC WITH PLATELETS STAT 11/24/2024 6: 51 PM CDT XR SURGERY AMALIA FLUORO LESS THAN 5 MIN W STILLS Routine 11/24/2024 5:59 PM CDT AEROBIC BACTERIAL CULTURE ROUTINE Routine 11/24/2024 5:15 PM CDT ANAEROBIC BACTERIAL CULTURE ROUTINE Routine 11/24/2024 5:15 PM CDT CYSTOSCOPY, WITH RETROGRADE PYELOGRAM AND URETERAL STENT INSERTION 11/24/2024 4:35 PM CDT Ureteropelvic junction calculus PROCALCITONIN Routine 11/24/2024 6:55 AM CDT PSA TUMOR MARKER Add-On 11/24/2024 6:55 AM CDT BASIC METABOLIC PANEL Routine 11/24/2024 6:55 AM CDT CBC WITH PLATELETS Routine 11/24/2024 6: 55 AM CDT ROUTINE UA WITH MICROSCOPIC REFLEX TO CULTURE Routine 11/24/2024 5:10 AM CDT documented in this encounter Results * (ABNORMAL) Hemoglobin (11/29/2024 7:43 AM CDT) Hemoglobin 8.4(L) 13.3 - 17.7 g/dL 11/29/2024 7:56 AM CDT LABORATORY MCV 87 78 - 100 fL 11/29/2024 7:56 AM CDT LABORATORY Blood STRUCTURE OF RIGHT UPPER LIMB / Unknown Venipuncture / Unknown 11/29/2024 7:43 AM CDT 11/29/2024 7:48 AM CDT us Edwina Sanabria PA-C LAB - BLOOD ORDERABLES Final Res ult LABORATORY [facility] [address], [address] [address], [facility] [phone] * (ABNORMAL) Glucose by meter (11/29/2024 5:51 AM CDT) GLUCOSE BY METER POCT 108(H) 70 - 99 mg/dL 11/29/2024 5:58 AM CDT LABORATORY POC Blood, Capillary BLOOD SPECIMEN / Unknown 11/29/2024 5:51 AM CDT 11/29/2024 5:58 AM CDT Brenna Dao MD LAB - BEAKER POCT Final Resul t LABORATORY POC [facility] [address], [address] [place] [address], [facility] * Surgical Pathology Exam (11/28/2024 5:27 PM CDT) Case Report Surgical Pathology Report Case: [id number] Authorizing Provider: Geronimo Carter MD Collected: 11/28/2024 05:27 PM Ordering Location: [facility] Received: 11/29/2024 06:54 AM [facility] Main OR Pathologist: Robert Mckeon MD Specimen: Prostate, PROSTATE 12/01/2024 9:36 AM T LABORATORY Final Diagnosis Prostate, transurethral resection- Benign prostate tissue consistent with benign prostatic hypertrophy 12/01/2024 9:36 AM T LABORATORY at 0936 CDT Clinical Information Procedure: Cystoscopy WITH HOLMIUM LASER ENUCLEATION OF THE PROSTATE Pre-op Diagnosis: Benign prostatic hyperplasia with lower urinary tract symptoms [N40.1] Post-op Diagnosis: N40.1 - Benign prostatic hyperplasia with lower urinary tract symptoms [ICD-10-CM] 12/01/2024 9:36 AM T LABORATORY Gross Description A(1). Prostate, PROSTATE: The specimen is received in formalin, labeled with the patient's name, medical record number and other identifying information designated prostate. It consists of a 55 g, 7.2 x 7.2 x 3.8 cm aggregate of white-akbar previously morcellated soft tissue. [employer] Professional sections are submitted in formalin in 15 cassettes. SERVANDO Schmidt(ASCP)CM 11/29/2024 8:38 AM 12/01/2024 9:36 AM T LABORATORY Microscopic Description Microscopic performed 12/01/2024 9:36 AM T LABORATORY Performing Labs The technical component of this testing was completed at [facility]. Stain controls for all stains resulted within this report have been reviewed and show appropriate reactivity. 12/01/2024 9:36 AM CDT LABORATORY Case Images 12/01/2024 9:36 AM CDT LABORATORY Tissue PROSTATE / Unknown 5:27 PM CDT 11/29/2024 6:54 AM CDT us Geronimo Carter MD LAB - BEAKER AP Final Result LABORATORY [facility] [address] 1st [address], [address] [place] [address], [facility] [phone] * Stone analysis (11/28/2024 3:42 PM CDT) Stone Mass 1635 mg 12/01/2024 10:30 PM CDT [employer] Calculi Description See Note 12/01/2024 10:30 PM CDT [employer] Comment: Specimen consists of numerous brown and akbar calculi fragments. Specimen was not received in the preferred dry state. The presence of liquid, blood, gel, or adhesive often delays analysis. The total weight is 1635 mg. Stone Composition See Note 10:30 PM CDT [employer] Comment: Calculi composed primarily of: 40% calcium oxalate monohydrate, 30% calcium oxalate dihydrate, and 30% calcium phosphate (hydroxy- and carbonate- apatite). INTERPRETIVE INFORMATION: Calculi (Stone) analysis Calculi are the products of physiological processes that yield crystalline compounds in a matrix of biological compounds and blood. Matrix components are not reported. The clinically significant crystalline components identified in calculi specimens are reported. Gross description may not be consistent with composition determined by FTIR analysis. Performed By: [employer] [address] [place] [address] Printed Circuit Board Assembly Repairer: Sorin Amin MD, PhD CLIA Number: [id number] Calculus/Stone URINARY BLADDER STRUCTURE / Unknown Non-blood Collection / Unknown 11/28/2024 3:42 PM CDT 11/28/2024 6:00 PM CDT Geronimo Carter MD LAB - BODY FLUIDS ORDERABLES Final Result [employer] [address] [place] [address], [facility] [phone] * (ABNORMAL) Hemoglobin (11/28/2024 10:39 AM CDT) Hemoglobin 8.2(L) 13.3 - 17.7 g/dL 11/28/2024 10:48 AM CDT LABORATORY MCV 88 78 - 100 fL 11/28/2024 10:48 AM CDT LABORATORY Blood STRUCTURE OF RIGHT UPPER LIMB / Unknown Venipuncture / Unknown 11/28/2024 10:39 AM CDT 11/28/2024 10:44 AM CDT Jammie Cerna PA-C LAB - BLOOD ORDERABLES Final Result LABORATORY [facility] [address], [address] [place] [address], [facility] [phone] * (ABNORMAL) Hemoglobin (11/27/2024 12:57 PM CDT) [facility] Hemoglobin 8.5(L) 13.3 - 17.7 g/dL 11/27/2024 1:11 PM CDT LABORATORY MCV 89 78 - 100 fL 11/27/2024 1:11 PM CDT LABORATORY Blood STRUCTURE OF RIGHT UPPER LIMB / Unknown Venipuncture / Unknown 11/27/2024 12:57 PM CDT 11/27/2024 1:09 PM CDT Edwina Sanabria PA-C LAB - BLOOD ORDERABLES Final Res ult LABORATORY [facility] [address], [address] [place] [address], [facility] [phone] * (ABNORMAL) CBC with platelets (11/27/2024 7:44 AM CDT) WBC Count 4.2 4.0 - 11.0 10e3/uL 11/27/2024 8:14 AM CDT LABORATORY RBC Count 2.64(L) 4.40 - 5.90 10e6/uL 11/27/2024 8:14 AM CDT LABORATORY Hemoglobin 7.9(L) 13.3 - 17.7 g/dL 11/27/2024 8:14 AM CDT LABORATORY Hematocrit 23.3(L) 40.0 - 53.0 % 11/27/2024 8:14 AM CDT LABORATORY MCV 88 78 - 100 fL 11/27/2024 8:14 AM CDT LABORATORY MCH 29.9 26.5 - 33.0 pg 11/27/2024 8:14 AM CDT LABORATORY MCHC 33.9 31.5 - 36.5 g/dL 11/27/2024 8:14 AM CDT LABORATORY RDW 24.1(H) 10.0 - 15.0 % 11/27/2024 8:14 AM CDT LABORATORY Platelet Count 166 150 - 450 10e3/uL 11/27/2024 8:14 AM CDT LABORATORY Blood STRUCTURE OF RIGHT UPPER LIMB / Unknown Venipuncture / Unknown 11/27/2024 7:44 AM CDT 11/27/2024 7:58 AM CDT Haley Tran MD LAB - BLOOD ORDERABLES Final Res ult LABORATORY [facility] [address], [address] [place] [address], [facility] [phone] * CONDITIONAL Transfuse red blood cells (unit) 1; No special requirements (11/26/2024 1:02 PM CDT) Geronimo Carter MD BLOOD TRANSFUSION ORDERABLES Final Result * CONDITIONAL Prepare red blood cells (unit) (11/26/2024 10:19 AM CDT) Blood Component Type Red Blood Cells BLOOD BANK Product Code [id number] BLOO D BANK Unit Status Transfused BLOO D BANK Unit Number [id number] B LOOD BANK CROSSMATCH Compatible BLOOD BANK CODING SYSTEM [id number] BLO OD BANK ISSUE DATE AND TIME 11/26/2024 10:59:00 AM CDT BLOOD BANK UNIT ABO/RH O+ BLOOD BANK UNIT TYPE ISBT 5100 BL OOD BANK 11/26/2024 10:1 9 AM CDT Haley Tran MD BLOOD BANK PRODUCT ORDERABLES Fi nal Result BLOOD BANK [address] [address], [facility] * Adult Type and Screen (11/26/2024 7:04 AM CDT) ABO/RH(D) O POS 11/26/2024 8:25 AM CDT BLOOD BANK Antibody Screen Negative Negative 11/26/2024 8:25 AM CDT BLOOD BANK SPECIMEN EXPIRATION DATE 11/29/2024 11:59:00 PM CDT 11/26/2024 8:25 AM CDT BLOOD BANK Blood STRUCTURE OF RIGHT UPPER LIMB / Unknown Venipuncture / Unknown 11/26/2024 7:04 AM CDT 11/26/2024 7:09 AM CDT Haley Tran MD LAB - BLOOD BANK TEST ORDER Susan l Result Performing Organization Address City/[facility]/ZIP Co de Phone Number BLOOD BANK [address] [place] [address], [facility] * (ABNORMAL) Comprehensive metabolic panel (11/26/2024 7:04 AM CDT) Sodium 135 135 - 145 mmol/L 11/26/2024 7:36 AM CDT LABORATORY Potassium 4.0 3.4 - 5.3 mmol/L 11/26/2024 7:36 AM CDT LABORATORY Carbon Dioxide (CO2) 23 22 - 29 mmol/L 11/26/2024 7:36 AM CDT LABORATORY Anion Gap 8 7 - 15 mmol/L 11/26/2024 7:36 AM CDT LABORATORY Urea Nitrogen 17.7 8.0 - 23.0 mg/dL 11/26/2024 7:36 AM CDT LABORATORY Creatinine 0.99 0.67 - 1.17 mg/dL 11/26/2024 7:36 AM CDT LABORATORY GFR Estimate 82 >60 mL/min/1.7 3m2 11/26/2024 7:36 AM CDT LABORATORY Comment:eGFR calculated us2020 CKD-EPI equation. Calcium 8.4(L) 8.8 - 10.4 mg/dL 11/26/2024 7:36 AM CDT LABORATORY Chloride 104 98 - 107 mmol/L 11/26/2024 7:36 AM CDT LABORATORY Glucose 109(H) 70 - 99 mg/dL 11/26/2024 7:36 AM CDT LABORATORY Alkaline Phosphatase 37(L) 40 - 150 U/L 11/26/2024 7:36 AM CDT LABORATORY AST 27 0 - 45 U/L 11/26/2024 7:36 AM CDT LABORATORY ALT 9 0 - 70 U/L 11/26/2024 7:36 AM CDT LABORATORY Protein Total 5.6(L) 6.4 - 8.3 g/dL 11/26/2024 7:36 AM CDT LABORATORY Albumin 3.3(L) 3.5 - 5.2 g/dL 11/26/2024 7:36 AM CDT LABORATORY Bilirubin Total 0.4 <=1.2 mg/dL 11/26/2024 7:36 AM CDT LABORATORY Blood STRUCTURE OF RIGHT UPPER LIMB / Unknown Venipuncture / Unknown 11/26/2024 7:04 AM CDT 11/26/2024 7:09 AM CDT us Haley Tran MD LAB - BLOOD ORDERABLES Final Res ult LABORATORY [facility] [address], [address] [place] [address], [facility] [phone] * (ABNORMAL) CBC with platelets (11/26/2024 7:04 AM CDT) WBC Count 6.3 4.0 - 11.0 10e3/uL 11/26/2024 7:13 AM CDT LABORATORY RBC Count 2.25(L) 4.40 - 5.90 10e6/uL 11/26/2024 7:13 AM CDT LABORATORY Hemoglobin 7.0(L) 13.3 - 17.7 g/dL 11/26/2024 7:13 AM CDT LABORATORY Hematocrit 20.9(L) 40.0 - 53.0 % 11/26/2024 7:13 AM CDT LABORATORY MCV 93 78 - 100 fL 11/26/2024 7:13 AM CDT LABORATORY MCH 31.1 26.5 - 33.0 pg 11/26/2024 7:13 AM CDT LABORATORY MCHC 33.5 31.5 - 36.5 g/dL 11/26/2024 7:13 AM CDT LABORATORY RDW 18.9(H) 10.0 - 15.0 % 11/26/2024 7:13 AM CDT LABORATORY Platelet Count 163 150 - 450 10e3/uL 11/26/2024 7:13 AM CDT LABORATORY Blood STRUCTURE OF RIGHT UPPER LIMB / Unknown Venipuncture / Unknown 11/26/2024 7:04 AM CDT 11/26/2024 7:09 AM CDT Haley Tran MD LAB - BLOOD ORDERABLES Final Res ult [facility] [address], [address] [address], [facility] [phone] * (ABNORMAL) Hemoglobin (11/25/2024 7:18 PM CDT) Hemoglobin 8.6(L) 13.3 - 17.7 g/dL 11/25/2024 8:05 PM CDT LABORATORY MCV 95 78 - 100 fL 11/25/2024 8:05 PM CDT LABORATORY Blood STRUCTURE OF LEFT HAND / Unknown Venipuncture / Unknown 11/25/2024 7:18 PM CDT 11/25/2024 8:03 PM CDT Haley Tran MD LAB - BLOOD ORDERABLES Final Res ult SH LABORATORY [facility] [address], [address] [place] [address], [facility] [phone] * (ABNORMAL) Hemoglobin (11/25/2024 10:02 AM CDT) Pathologist [facility] Hemoglobin 8.6(L) 13.3 - 17.7 g/dL 11/25/2024 10:21 AM CDT LABORATORY MCV 94 78 - 100 fL 11/25/2024 10:21 AM CDT LABORATORY Blood STRUCTURE OF RIGHT HAND / Unknown Venipuncture / Unknown 11/25/2024 10:02 AM CDT 11/25/2024 10:18 AM CDT us Franky Turner MD LAB - BLOOD ORDERABLES Fi nal Result LABORATORY [facility] [address], [address] [place] [address], [facility] [phone] * (ABNORMAL) CBC with platelets (11/25/2024 6:50 AM CDT) Pathologist [facility] WBC Count 10.3 4.0 - 11.0 10e3/uL 11/25/2024 7:06 AM CDT LABORATORY RBC Count 3.04(L) 4.40 - 5.90 10e6/uL 11/25/2024 7:06 AM CDT LABORATORY Hemoglobin 9.5(L) 13.3 - 17.7 g/dL 11/25/2024 7:06 AM CDT LABORATORY Hematocrit 28.9(L) 40.0 - 53.0 % 11/25/2024 7:06 AM CDT LABORATORY MCV 95 78 - 100 fL 11/25/2024 7:06 AM CDT LABORATORY MCH 31.3 26.5 - 33.0 pg 11/25/2024 7:06 AM CDT LABORATORY MCHC 32.9 31.5 - 36.5 g/dL 11/25/2024 7:06 AM CDT LABORATORY RDW 18.9(H) 10.0 - 15.0 % 11/25/2024 7:06 AM CDT LABORATORY Platelet Count 205 150 - 450 10e3/uL 11/25/2024 7:06 AM CDT LABORATORY Blood STRUCTURE OF RIGHT HAND / Unknown Venipuncture / Unknown 11/25/2024 6:50 AM CDT 11/25/2024 6:54 AM CDT us Haley Tran MD LAB - BLOOD ORDERABLES Final Res ult [facility] [address], [address] [place] [address], [place] [phone] * (ABNORMAL) Hemoglobin (11/25/2024 2:08 AM CDT) Hemoglobin 8.8(L) 13.3 - 17.7 g/dL 11/25/2024 2:15 AM CDT LABORATORY MCV 92 78 - 100 fL 11/25/2024 2:15 AM CDT LABORATORY Blood STRUCTURE OF RIGHT WRIST REGION / Unknown Venipuncture / Unknown 11/25/2024 2:08 AM CDT 11/25/2024 2:12 AM CDT us Franky Turner MD LAB - BLOOD ORDERABLES Fi nal Result [facility] [address], [address] [place] [address], [facility] [phone] * (ABNORMAL) Hemoglobin (11/24/2024 10:21 PM CDT) Hemoglobin 10.5(L) 13.3 - 17.7 g/dL 11/24/2024 10:34 PM CDT LABORATORY MCV 96 78 - 100 fL 11/24/2024 10:34 PM CDT LABORATORY Blood STRUCTURE OF RIGHT HAND / Unknown Venipuncture / Unknown 11/24/2024 10:21 PM CDT 11/24/2024 10:31 PM CDT us Franky Turner MD LAB - BLOOD ORDERABLES Fi nal Result LABORATORY [facility] [address], [address] [place] [address], [place] [phone] * CT Abdomen Pelvis w/o Contrast (11/24/2024 7:26 PM CDT) Anatomical Region Laterality Modality Abdomen/Pelvis, SUBRAD CT LELE DY, UMP CT ABDOMEN PELVIS, RAD CT Computed Tomography 11/24/2024 7:26 PM CDT Impressions 11/24/2024 7:48 PM CDT IMPRESSION: 1. Right ureteral stent with no evidence of hydronephrosis. 6 mm stone noted within the right collecting system. 2. Several stones are noted within the bladder measuring up to 1.8 cm. 3. High density fluid noted within the bladder which may be related to hemorrhage or possible previous contrast administration. Narrative 11/24/2024 7:48 PM CDT EXAM: CT ABDOMEN PELVIS W/O CONTRAST LOCATION: [facility] DATE: 11/24/2024 INDICATION: kidney stones, hematuria, confirm medrano in bladder look for bladder distention COMPARISON: None. TECHNIQUE: CT scan of the abdomen and pelvis was performed without IV contrast. Multiplanar reformats were obtained. Dose reduction techniques were used. CONTRAST: None. FINDINGS: LOWER CHEST: Bibasilar atelectasis. HEPATOBILIARY: Liver and gallbladder within normal limits. PANCREAS: Normal. SPLEEN: Normal. ADRENAL GLANDS: Normal. KIDNEYS/BLADDER: Right ureteral stent noted within the interpolar region of the right kidney. 6 mm stone noted within the right collecting system. Few tiny 1 mm stone noted within the left kidney. No left hydronephrosis. BOWEL: Diverticulosis of the colon. No acute inflammatory change. No obstruction. LYMPH NODES: Normal. VASCULATURE: Normal. PELVIC ORGANS: Several stones are noted throughout the bladder measuring up to 1.8 cm. Prostatomegaly. Medrano catheter noted within the bladder. High density fluid noted within the bladder which may be related to hemorrhage or possible previous contrast administration. Small fat-containing right inguinal hernia. MUSCULOSKELETAL: Degenerative changes of the spine. Procedure Note Sundeep Le MD - 11/24/2024 EXAM: CT ABDOMEN PELVIS W/O CONTRAST LOCATION: [facility] DATE: 11/24/2024 INDICATION: kidney stones, hematuria, confirm medrano in bladder look forbladder distention COMPARISON: None. TECHNIQUE: CT scan of the abdomen and pelvis was performed without IVcontrast. Multiplanar reformats were obtained. Dose reduction techniqueswere used. CONTRAST: None. FINDINGS: LOWER CHEST: Bibasilar atelectasis. HEPATOBILIARY: Liver and gallbladder within normal limits. PANCREAS: Normal. SPLEEN: Normal. ADRENAL GLANDS: Normal. KIDNEYS/BLADDER: Right ureteral stent noted within the interpolar regionof the right kidney. 6 mm stone noted within the right collecting system.Few tiny 1 mm stone noted within the left kidney. No lefthydronephrosis. BOWEL: Diverticulosis of the colon. No acute inflammatory change. Noobstruction. LYMPH NODES: Normal. VASCULATURE: Normal. PELVIC ORGANS: Several stones are noted throughout the bladder measuringup to 1.8 cm. Prostatomegaly. Medrano catheter noted within the bladder.High density fluid noted within the bladder which may be related tohemorrhage or possible previous contrast administration. Small fat-containing right inguinal hernia. MUSCULOSKELETAL: Degenerative changes of the spine. IMPRESSION: 1. Right ureteral stent with no evidence of hydronephrosis. 6 mm stonenoted within the right collecting system. 2. Several stones are noted within the bladder measuring up to 1.8 cm. 3. High density fluid noted within the bladder which may be related tohemorrhage or possible previous contrast administration. Franky Turner MD [facility] CT ORDERABLES Final R esult * Adult Type and Screen (11/24/2024 6:51 PM CDT) ABO/RH(D) O POS 11/24/2024 5:52 PM CDT BLOOD BANK Antibody Screen Negative Negative 11/24/2024 5:52 PM CDT BLOOD BANK SPECIMEN EXPIRATION DATE 11/27/2024 11:59:00 PM CDT 11/24/2024 5:52 PM CDT BLOOD BANK Blood STRUCTURE OF RIGHT HAND / Unknown Venipuncture / Unknown 11/24/2024 6:51 PM CDT 11/24/2024 6:55 PM CDT Zeinab Barcenas MD LAB - BLOOD BANK TEST ORDER Fi nal Result BLOOD BANK [address] [place] [address], [facility] * Partial thromboplastin time (11/24/2024 6:51 PM CDT) aPTT 28 22 - 38 Seconds 11/24/2024 7:15 PM CDT LABORATORY Blood STRUCTURE OF RIGHT HAND / Unknown Venipuncture / Unknown 11/24/2024 6:51 PM CDT 11/24/2024 6:55 PM CDT Zeinab Barcenas MD LAB - BLOOD ORDERABLES Final R esult LABORATORY [facility] [address], [address] [place] [address], [facility] [phone] * (ABNORMAL) CBC with platelets (11/24/2024 6:51 PM CDT) WBC Count 12.6(H) 4.0 - 11.0 10e3/uL 11/24/2024 6:57 PM CDT LABORATORY RBC Count 3.75(L) 4.40 - 5.90 10e6/uL 11/24/2024 6:57 PM CDT LABORATORY Hemoglobin 11.8(L) 13.3 - 17.7 g/dL 11/24/2024 6:57 PM CDT LABORATORY Hematocrit 35.2(L) 40.0 - 53.0 % 11/24/2024 6:57 PM CDT LABORATORY MCV 94 78 - 100 fL 11/24/2024 6:57 PM CDT LABORATORY MCH 31.5 26.5 - 33.0 pg 11/24/2024 6:57 PM CDT LABORATORY MCHC 33.5 31.5 - 36.5 g/dL 11/24/2024 6:57 PM CDT LABORATORY RDW 18.8(H) 10.0 - 15.0 % 11/24/2024 6:57 PM CDT LABORATORY Platelet Count 233 150 - 450 10e3/uL 11/24/2024 6:57 PM CDT LABORATORY Blood STRUCTURE OF RIGHT HAND / Unknown Venipuncture / Unknown 11/24/2024 6:51 PM CDT 11/24/2024 6:55 PM CDT us Zeinab Barcenas MD LAB - BLOOD ORDERABLES Final R esult LABORATORY [facility] [address], [address] [place] [address], [place] [phone] * Fibrinogen activity (11/24/2024 6:51 PM CDT) Fibrinogen Activity 370 170 - 510 mg/dL 11/24/2024 7:15 PM CDT LABORATORY Blood STRUCTURE OF RIGHT HAND / Unknown Venipuncture / Unknown 11/24/2024 6:51 PM CDT 11/24/2024 6:55 PM CDT us Zeinab Barcenas MD LAB - BLOOD ORDERABLES Final R esult LABORATORY [facility] [address], [address] [place] [address], [place] [phone] * (ABNORMAL) INR (11/24/2024 6:51 PM CDT) INR 1.19(H) 0.85 - 1.15 11/24/2024 7:15 PM CDT LABORATORY PT 14.9(H) 11.8 - 14.8 Seconds 11/24/2024 7:15 PM CDT LABORATORY Blood STRUCTURE OF RIGHT HAND / Unknown Venipuncture / Unknown 11/24/2024 6:51 PM CDT 11/24/2024 6:55 PM CDT us Zeinab Barcenas MD LAB - BLOOD ORDERABLES Final R esult LABORATORY [facility] [address], [address] [place] [address], [facility] [phone] * (ABNORMAL) Basic metabolic panel (11/24/2024 6:51 PM CDT) [facility] Sodium 138 135 - 145 mmol/L 11/24/2024 7:13 PM CDT LABORATORY Potassium 4.2 3.4 - 5.3 mmol/L 11/24/2024 7:13 PM CDT LABORATORY Chloride 105 98 - 107 mmol/L 11/24/2024 7:13 PM CDT LABORATORY Carbon Dioxide (CO2) 20(L) 22 - 29 mmol/L 11/24/2024 7:13 PM CDT LABORATORY Anion Gap 13 7 - 15 mmol/L 11/24/2024 7:13 PM CDT LABORATORY Urea Nitrogen 13.0 8.0 - 23.0 mg/dL 11/24/2024 7:13 PM CDT LABORATORY Creatinine 0.87 0.67 - 1.17 mg/dL 11/24/2024 7:13 PM CDT LABORATORY GFR Estimate >90 >60 mL/min/1.7 3m2 11/24/2024 7:13 PM CDT LABORATORY Comment:eGFR calculated us2020 CKD-EPI equation. Calcium 8.3(L) 8.8 - 10.4 mg/dL 11/24/2024 7:13 PM CDT LABORATORY Glucose 106(H) 70 - 99 mg/dL 11/24/2024 7:13 PM CDT LABORATORY Blood STRUCTURE OF RIGHT HAND / Unknown Venipuncture / Unknown 11/24/2024 6:51 PM CDT 11/24/2024 6:55 PM CDT us Zeinab Barcenas MD LAB - BLOOD ORDERABLES Final R esult LABORATORY [facility] [address], [address] [place] [address], [facility] [phone] * XR Surgery AMALIA L/T 5 Min Fluoro w Stills (11/24/2024 5:59 PM CDT) Narrative [facility] - 11/24/2024 6:00 PM CDT This exam was marked as non-reportable because it will not be read by a radiologist or a [place] non-radiologist provider. Haley Tran MD IMG DIAGNOSTIC IMAGING ORDERABLE S Final Result Performing Organization Address City/[facility]/ZIP Co de Phone Number [facility] * [place] Aerobic Bacterial Culture Routine (11/24/2024 5:15 PM CDT) Culture No Growth 11/29/2024 6:58 AM CDT [facility] [place] RIGHT KIDNEY STRUCTURE / Unknown Non-blood Collection / Unknown 11/24/2024 5:15 PM CDT 11/24/2024 5:55 PM CDT Franky Turner MD LAB - MICRO GENERAL ORDER DENA Final Result Performing Organization Address City/[facility]/ZIP Co de Phone Number [facility] Inf. Diseases Diag. Lab [address] [facility] [place] [address], [facility] * Anaerobic Bacterial Culture Routine (11/24/2024 5:15 PM CDT) Culture No anaerobic organisms isolated ALFRED 12/01/2024 8:03 AM CDT [facility] [place] RIGHT KIDNEY STRUCTURE / Unknown Non-blood Collection / Unknown 11/24/2024 5:15 PM CDT 11/24/2024 5:56 PM CDT Franky Turner MD LAB - MICRO GENERAL ORDER DENA Final Result [facility] Lab [address] [facility] [place] [address], [facility] * (ABNORMAL) PSA tumor marker (11/24/2024 6:55 AM CDT) PSA Tumor Marker 11.00(H) 0.00 - 6.50 ng/mL 11/24/2024 2:05 PM CDT [facility] Blood STRUCTURE OF RIGHT HAND / Unknown Venipuncture / Unknown 11/24/2024 6:55 AM CDT 11/24/2024 7:09 AM CDT Narrative [facility] - 11/24/2024 2:05 PM CDT This result is obtained using the [employer] total PSA method on the stephen e801 immunoassay analyzer, which is an ultrasensitive method. Results obtained with different assay methods or kits cannot be used interchangeably. An undetectable (<0.01 ng/mL) ultrasensitive prostate-specific antigen (USPSA) concentration after radical prostatectomy is reassuring and may aid in postoperative risk stratification of patients. A detectable USPSA concentration (> or =0.01 ng/mL) after radical prostatectomy (RP) does not necessarily translate into disease progression or recurrence. Interpretation of a detectable USPSA needs to be made in conjunction with other clinicopathologic risk factors. The cutpoint for interpretation of USPSA assays remains controversial and has ranged from 0.01 to 0.05 ng/mL. For example, in a study that included 754 men after RP, a cutpoint of 0.01 ng/mL was an independent predictor of biochemical recurrence (BCR). BCR-free survival at 5 years was 92.4% for patients with an USPSA post-RP of less than 0.01 ng/mL and 56.8% for patients with an USPSA post-RP of 0.01 ng/mL or higher.(1) In the same study a cutoff of 0.03 ng/mL also predicted BCR independent of clinicopathological factors and BCR-free survival at 5 yrs was 90.8% for patients with an USPSA post-RP of less than 0.03 ng/mL and 26.9% for patients with a PSA post-RP of greater or equal to 0.03 ng/mL. (1) 1. Jason LJ, Rafa Z, Rivera DW, et al. Do ultrasensitive prostate specific antigen measurements have a role in predicting long-term biochemical recurrence-free survival in men after radical prostatectomy? J Urol. 2016;195(2):330-336. doi:10.1016/j.juro.2015.08.080 Debbie Villalta PA-C LAB - BLOOD ORDERABLES F inal Result LABORATORY [facility] [address] [facility], [address] [place] [address] * Procalcitonin (11/24/2024 6:55 AM CDT) Pathologist [facility] Procalcitonin 0.05 <0.50 ng/mL 11/24/2024 7:48 AM CDT LABORATORY Comment: Interpretation and Recommendations <0.5 ng/mL: Systemic bacterial infection unlikely. Local bacterial infection is possible. 0.5-1.99 ng/mL: Systemic bacterial infection possible, but various other conditions are known to induce PCT as well. >=2.00 ng/mL: Systemic bacterial infection likely, unless other causes are known. Decision to start antibiotics should not be based on procalcitonin level alone. See Procalcitonin Guidance document for more details. 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 Blood STRUCTURE OF RIGHT HAND / Unknown Venipuncture / Unknown 11/24/2024 6:55 AM CDT 11/24/2024 7:09 AM CDT Get Figueroa DO LAB - BLOOD ORDERABLES Final Re sult LABORATORY [facility] [address] 1[address], [address] [place] [address], [facility] [phone] * (ABNORMAL) CBC with platelets (11/24/2024 6:55 AM CDT) [facility] WBC Count 7.8 4.0 - 11.0 10e3/uL 11/24/2024 7:17 AM CDT LABORATORY RBC Count 4.22(L) 4.40 - 5.90 10e6/uL 11/24/2024 7:17 AM CDT LABORATORY Hemoglobin 13.2(L) 13.3 - 17.7 g/dL 11/24/2024 7:17 AM CDT LABORATORY Hematocrit 39.6(L) 40.0 - 53.0 % 11/24/2024 7:17 AM CDT LABORATORY MCV 94 78 - 100 fL 11/24/2024 7:17 AM CDT LABORATORY MCH 31.3 26.5 - 33.0 pg 11/24/2024 7:17 AM CDT LABORATORY MCHC 33.3 31.5 - 36.5 g/dL 11/24/2024 7:17 AM CDT LABORATORY RDW 18.7(H) 10.0 - 15.0 % 11/24/2024 7:17 AM CDT LABORATORY Platelet Count 214 150 - 450 10e3/uL 11/24/2024 7:17 AM CDT LABORATORY Blood STRUCTURE OF RIGHT HAND / Unknown Venipuncture / Unknown 11/24/2024 6:55 AM CDT 11/24/2024 7:09 AM CDT Get Figueroa DO LAB - BLOOD ORDERABLES Final Re sult LABORATORY [facility] [address], [address] [place] [address], [place] [phone] * (ABNORMAL) Basic metabolic panel (11/24/2024 6:55 AM CDT) Sodium 136 135 - 145 mmol/L 11/24/2024 7:48 AM CDT LABORATORY Potassium 4.0 3.4 - 5.3 mmol/L 11/24/2024 7:48 AM CDT LABORATORY Chloride 106 98 - 107 mmol/L 11/24/2024 7:48 AM CDT LABORATORY Carbon Dioxide (CO2) 18(L) 22 - 29 mmol/L 11/24/2024 7:48 AM CDT LABORATORY Anion Gap 12 7 - 15 mmol/L 11/24/2024 7:48 AM CDT LABORATORY Urea Nitrogen 15.9 8.0 - 23.0 mg/dL 11/24/2024 7:48 AM CDT LABORATORY Creatinine 0.97 0.67 - 1.17 mg/dL 11/24/2024 7:48 AM CDT LABORATORY GFR Estimate 84 >60 mL/min/1.7 3m2 11/24/2024 7:48 AM CDT LABORATORY Comment:eGFR calculated usin 2020 CKD-EPI equation. Calcium 9.0 8.8 - 10.4 mg/dL 11/24/2024 7:48 AM CDT LABORATORY Glucose 101(H) 70 - 99 mg/dL 11/24/2024 7:48 AM CDT LABORATORY Blood STRUCTURE OF RIGHT HAND / Unknown Venipuncture / Unknown 11/24/2024 6:55 AM CDT 11/24/2024 7:09 AM CDT us Get Figueroa DO LAB - BLOOD ORDERABLES Final Re sult LABORATORY [facility] [address] 1[address], [address] [place] [address], [place] [phone] * (ABNORMAL) UA with Microscopic reflex to Culture (11/24/2024 5:10 AM CDT) Color Urine Straw Colorless, Straw, Light Yellow, Yellow 11/24/2024 5:25 AM CDT LABORATORY Appearance Urine Clear Clear 11/25/19 5:25 AM CDT LABORATORY Glucose Urine Negative Negative mg/dL 11/24/2024 5:25 AM CDT LABORATORY Bilirubin Urine Negative Negative 5:25 AM CDT LABORATORY Ketones Urine Negative Negative mg/dL 11/24/2024 5:25 AM CDT LABORATORY Specific [place] Urine 1.016 1.003 - 1.035 11/24/2024 5:25 AM CDT LABORATORY Blood Urine Small(A) Negative 11/24/2024 5:25 AM CDT LABORATORY pH Urine 5.5 5.0 - 7.0 11/24/2024 5:25 AM CDT LABORATORY Protein Albumin Urine Negative Negative mg/dL 11/24/2024 5:25 AM CDT LABORATORY Urobilinogen Urine Normal Normal mg/dL 11/24/2024 5:25 AM CDT LABORATORY Nitrite Urine Negative Negative 11/24/2024 5:25 AM CDT LABORATORY Leukocyte Esterase Urine Negative Negative 11/24/2024 5:25 AM CDT LABORATORY RBC Urine 5(H) <=2 /HPF 11/24/2024 5:25 AM CDT LABORATORY WBC Urine <1 <=5 /HPF 11/24/2024 5:25 AM CDT LABORATORY Urine URINE SPECIMEN OBTAINED BY CLEAN CATCH PROCEDURE / Unknown Non-blood Collection / Unknown 11/24/2024 5:10 AM CDT 11/24/2024 5:16 AM CDT Narrative LABORATORY - 11/24/2024 5:25 AM CDT Urine Culture not indicated us Get Figueroa DO LAB - URINE ORDERABLES Final Re sult LABORATORY [facility] [address] 1[address], [address] [place] [address], [place] [phone] documented in this encounter Visit Diagnoses Diagnosis Kidney stone- Primary Calculus of kidney Kidney stone Calculus of kidney documented in this encounter Admitting Diagnoses Diagnosis Kidney stone Calculus of kidney documented in this encounter Administered Medications Inactive Administered Medications - up to 3 most recent administrations Medication Order MAR Action Action Date Dose Rate Site acetaminophen (TYLENOL) Suppository 650 mg 650 mg, Rectal, EVERY 4 HOURS PRN, mild pain, other, and adjunct with moderate or severe pain or per patient request, Starting on Wed11/24/24 at 0221, Alternate with ibuprofen if ordered. Maximum acetaminophen dose from all sources = 75 mg/kg/day not to exceed 4 grams/day. acetaminophen (TYLENOL) tablet 650 mg 650 mg, Oral, EVERY 4 HOURS PRN, mild pain, other, and adjunct with moderate or severe pain or per patient request, Starting on Wed11/24/24 at 0221, Alternate with ibuprofen if ordered. Maximum acetaminophen dose from all sources = 75 mg/kg/day not to exceed 4 grams/day. $Given 11/28/2024 7:42 PM CDT 650 mg $Given 11/27/2024 3:39 AM CDT 650 mg $Given 11/26/2024 11:37 PM CDT 650 mg acetaminophen (TYLENOL) tablet 975 mg 975 mg, Oral, ONCE, On Wed11/28/24 at 1430, For 1 dose, Maximum acetaminophen dose from all sources = 75 mg/kg/day not to exceed 4 grams/day., Pre-procedure $Given 11/28/2024 2:21 PM CDT 975 mg albumin human 5 % injection 12.5 g 12.5 g, Intravenous, ONCE, On Wed11/24/24 at 1930, For 1 dose, Infusion rates should be adjusted based on patient condition and response. - For shock/hypovolemia, infuse as rapidly as tolerated. For patients with cardiac or circulatory disease at risk for rapid blood pressure increases, do not exceed 5-10 mL/min. - For patients with normal plasma volume, do not exceed 1-2 mL/min to avoid circulatory overload and pulmonary edema. - For procedure specific rates, please refer to procedure protocol., PACU, Reason for Use: Persistent hypotension despite adequate fluid resuscitation $New Bag 11/24/2024 7:23 PM CDT 12.5 g cefTRIAXone (ROCEPHIN) 1 g vial to attach to NS 100 mL bag for ADULTS or NS 50 mL bag for PEDS Routine, 1 g, Intravenous, EVERY 24 HOURS, First dose on Wed11/24/24 at 1900, Lactated Ringer's solution is not compatible with ceftriaxone for injection, Indications: Urinary Tract InfectionIndications:Urinary Tract Infection $New Bag 11/28/2024 7:21 PM CDT 1 g $New Bag 11/27/2024 7:29 PM CDT 1 g 200 mL/hr $New Bag 11/26/2024 6:42 PM CDT 1 g fentaNYL (PF) (SUBLIMAZE) injection 50 mcg 50 mcg, Intravenous, EVERY 5 MIN PRN, severe pain, Give fentaNYL (SUBLIMAZE) first if HYDROmorphone (DILAUDID) also ordered., Starting on Wed11/24/24 at 1724, Administer fentaNYL (SUBLIMAZE) for acute pain control. Move to HYDROmorphone (DILAUDID): - IF patient has received up to 200 mcg of fentaNYL (SUBLIMAZE), OR - IF patient has received 2 doses of fentaNYL (SUBLIMAZE) AND continues to have severe pain (pain score greater than or equal to seven (7) or is unable to participate in post op recovery due to pain. Wait 5 minutes AFTER last fentaNYL (SUBLIMAZE) dose before administering HYDROmorphone (DILADUDID). Postop Anesthesia Phase I only. Notify Provider to assess for uncontrolled pain or analgesic side effects. DO NOT revert back to fentanyl (SUBLIMAZE) after administering HYDROmorphone (DILAUDID)., PACU $Given 11/24/2024 6:28 PM CDT 50 mcg finasteride (PROSCAR) tablet 5 mg 5 mg, Oral, DAILY, First dose on Wed11/26/24 at 0900, *Do not handle tablets if you are * $Given 11/29/2024 9:39 AM CDT 5 mg $Given 11/28/2024 10:03 AM CDT 5 mg $Given 11/27/2024 10:26 AM CDT 5 mg gentamicin (GARAMYCIN) infusion 80 mg Routine, 80 mg, Intravenous, ONCE, On Wed11/28/24 at 1430, For 1 dose, Indications: Perioperative Pharmacoprophylaxis, Pre-procedureIndications:Perioperative Pharmacoprophylaxis $New Bag 11/28/2024 2:21 PM CDT 80 mg HYDROmorphone (DILAUDID) injection 0.2 mg 0.2 mg, Intravenous, EVERY 5 MIN PRN, moderate pain, Starting on Wed11/24/24 at 1724, Use FentaNYL (SUBLIMAZE) first if ordered. Maximum total cumulative dose NOT to exceed 2 mg. DO NOT revert back to fentanyl (SUBLIMAZE) after administering HYDROmorphone (DILAUDID). Notify Provider to assess for uncontrolled pain or analgesic side effects., PACU $Given 11/24/2024 7:58 PM CDT 0.2 mg HYDROmorphone (DILAUDID) injection 0.4 mg 0.4 mg, Intravenous, EVERY 5 MIN PRN, severe pain, Starting on Wed11/24/24 at 1724, Use FentaNYL (SUBLIMAZE) first if ordered. Maximum total cumulative dose NOT to exceed 2 mg. DO NOT revert back to fentanyl (SUBLIMAZE) after administering HYDROmorphone (DILAUDID). Notify Provider to assess for uncontrolled pain or analgesic side effects., PACU $Given 11/24/2024 8:21 PM CDT 0.4 mg hyoscyamine (LEVSIN/SL) sublingual tablet 125 mcg 125 mcg, Sublingual, EVERY 4 HOURS PRN, cramping, Starting on Wed11/24/24 at 1836, Patients using antacids should take hyoscyamine before meals and the antacid after meals. $Given 11/25/2024 9:38 PM CDT 125 mcg $Given 11/24/2024 8:38 PM CDT 125 mcg lactated ringers infusion at 100 mL/hr, Intravenous, CONTINUOUS, Pre-procedure, Starting on Wed11/24/24 at 1500, Until Wed11/24/24 at 1759 Restarted 11/24/2024 5:03 PM CDT $New Bag 11/24/2024 3:00 PM CDT 100 mL/hr lactated ringers infusion at 100 mL/hr, Intravenous, CONTINUOUS, Continue until IV catheter is weaned, PACU, Starting on Wed11/24/24 at 1730, Until Wed11/24/24 at 2107 $New Bag 11/24/2024 7:23 PM CDT 100 mL/hr naloxone (NARCAN) injection 0.2 mg 0.2 mg, Intravenous, EVERY 2 MIN PRN, opioid reversal, Starting on Wed11/24/24 at 0506, Administer intravenous route when available and notify provider when administered. For unintended sedation or respiratory depression if all of the below criteria are met: ~ respiratory rate LESS than or EQUAL to 8. ~SaO2 less than 92% and or/end-tidal CO2 is greater than 50. ~ the patient is receiving an opioid, has unintended sedations assessed as RASS (-3), and is currently not on mechanical ventilation. RASS scale moderate (-3) is movement or eye opening to voice but no eye contact. Patient Monitoring Once the patient has demonstrated a response to the naloxone, continue to monitor respiratory rate, depth, oxygen saturation and end-tidal CO2 (if available) every 15 minutes x 2, then every 30 minutes x 2, then every 1 hour x 1 after each naloxone dose. Consider transfer to ICU if patient respiratory parameters have not improved after 4 naloxone doses. naloxone (NARCAN) injection 0.2 mg 0.2 mg, Intramuscular, EVERY 2 MIN PRN, opioid reversal, Starting on Wed11/24/24 at 0506, Administer intramuscular if an intravenous route is not available and notify provider when administered. For unintended sedation or respiratory depression if all of the below criteria are met: ~ respiratory rate LESS than or EQUAL to 8. ~SaO2 less than 92% and or/end-tidal CO2 is greater than 50. ~ the patient is receiving an opioid, has unintended sedations assessed as RASS (-3), and is currently not on mechanical ventilation. RASS scale moderate (-3) is movement or eye opening to voice but no eye contact. Patient Monitoring Once the patient has demonstrated a response to the naloxone, continue to monitor respiratory rate, depth, oxygen saturation and end-tidal CO2 (if available) every 15 minutes x 2, then every 30 minutes x 2, then every 1 hour x 1 after each naloxone dose. Consider transfer to ICU if patient respiratory parameters have not improved after 4 naloxone doses. naloxone (NARCAN) injection 0.4 mg 0.4 mg, Intravenous, EVERY 2 MIN PRN, opioid reversal, Starting on Wed11/24/24 at 0506, Administer intravenous route when available and notify provider when administered. For unintended sedation or respiratory depression if all of the below criteria are met: ~ respiratory rate LESS than or EQUAL to 8. ~ SaO2 less than 92% and or/end-tidal CO2 is greater than 50. ~ the patient is receiving an opioid, has unintended sedation assessed as RASS (-4) or (-5) and patient is currently not on mechanical ventilation. RASS scale (-4) is deep sedation with no response to voice but movement or eye opening to physical stimulation. RASS scale (-5) is unarousable. Patient Monitoring Once the patient has demonstrated a response to the naloxone, continue to monitor respiratory rate, depth, oxygen saturation and end-tidal CO2 (if available) every 15 minutes x 2, then every 30 minutes x 2, then every 1 hour x 1 after each naloxone dose. Consider transfer to ICU if patient respiratory parameters have not improved after 4 naloxone doses. naloxone (NARCAN) injection 0.4 mg 0.4 mg, Intramuscular, EVERY 2 MIN PRN, opioid reversal, Starting on Wed11/24/24 at 0506, Administer intramuscular if an intravenous route is not available and notify provider when administered. For unintended sedation or respiratory depression if all of the below criteria are met: ~ respiratory rate LESS than or EQUAL to 8. ~ SaO2 less than 92% and or/end-tidal CO2 is greater than 50. ~ the patient is receiving an opioid, has unintended sedation assessed as RASS (-4) or (-5) and patient is currently not on mechanical ventilation. RASS scale (-4) is deep sedation with no response to voice but movement or eye opening to physical stimulation. RASS scale (-5) is unarousable. Patient Monitoring Once the patient has demonstrated a response to the naloxone, continue to monitor respiratory rate, depth, oxygen saturation and end-tidal CO2 (if available) every 15 minutes x 2, then every 30 minutes x 2, then every 1 hour x 1 after each naloxone dose. Consider transfer to ICU if patient respiratory parameters have not improved after 4 naloxone doses. ondansetron (ZOFRAN ODT) ODT tab 4 mg 4 mg, Oral, EVERY 6 HOURS PRN, nausea/vomiting - 1st line, Starting on Wed11/24/24 at 0221, This is Step 1 of nausea and vomiting management. If nausea not resolved in 15 minutes, go to Step 2 prochlorperazine (COMPAZINE). With dry hands, peel back foil backing and gently remove tablet. Do not push oral disintegrating tablet through foil backing. Administer immediately on tongue and oral disintegrating tablet dissolves in seconds, then swallow with saliva. Liquid not required. ondansetron (ZOFRAN) injection 4 mg 4 mg, Intravenous, EVERY 6 HOURS PRN, nausea/vomiting - 1st line, Administer over 2-5 Minutes, Starting on Wed11/24/24 at 0221, Give IF patient unable to tolerate oral medication. This is Step 1 of nausea and vomiting management. If nausea not resolved in 15 minutes, go to Step 2 prochlorperazine (COMPAZINE). opium-belladonna (B&O SUPPRETTES) 30-16.2 MG per suppository 1 suppository 1 suppository (30 mg), Rectal, EVERY 8 HOURS PRN, Starting on 11/25/24 at 0531, bladder spasms $Given 11/26/2024 7:45 PM CDT 1 suppository $Given 11/25/2024 7:52 PM CDT 1 suppository $Given 11/25/2024 8:35 AM CDT 1 suppository oxyBUTYnin ER (DITROPAN XL) 24 hr tablet 10 mg 10 mg, Oral, ONCE, On Wed11/28/24 at 1430, For 1 dose, DO NOT CRUSH. Give in pre op, Pre-procedure $Given 11/28/2024 2:55 PM CDT 10 mg oxyCODONE (ROXICODONE) tablet 5 mg 5 mg, Oral, EVERY 4 HOURS PRN, severe pain, IF pain not managed with non-pharmacological and non-opioid interventions, Starting on Wed11/24/24 at 0221, May use concomitant with non-opioid analgesics. $Given 11/25/2024 9:35 PM CDT 5 mg $Given 11/25/2024 12:01 AM CDT 5 mg $Given 11/24/2024 1:34 PM CDT 5 mg oxyCODONE IR (ROXICODONE) half-tab 2.5 mg 2.5 mg, Oral, EVERY 4 HOURS PRN, moderate pain, IF pain not managed with non-pharmacological and non-opioid interventions, Starting on Wed11/24/24 at 0221, May use concomitant with non-opioid analgesics. $Given 11/28/2024 7:42 PM CDT 2.5 mg prochlorperazine (COMPAZINE) injection 5 mg 5 mg, Intravenous, EVERY 6 HOURS PRN, nausea/vomiting - 2nd line, Administer over 1-2 Minutes, Starting on Wed11/24/24 at 0221, IF patient unable to tolerate oral medication. This is Step 2 of nausea and vomiting management. Give if nausea not resolved 15 minutes after giving ondansetron (ZOFRAN). prochlorperazine (COMPAZINE) tablet 5 mg 5 mg, Oral, EVERY 6 HOURS PRN, nausea/vomiting - 2nd line, Starting on Wed11/24/24 at 0221, This is Step 2 of nausea and vomiting management. Give if nausea not resolved 15 minutes after giving ondansetron (ZOFRAN). senna-docusate (SENOKOT-S/PERICOLACE) 8.6-50 MG per tablet 1 tablet 1 tablet, Oral, 2 TIMES DAILY PRN, constipation, Starting on Wed11/24/24 at 0218, If no bowel movement in 24 hours, increase to 2 tablets by mouth. IF more than 1 constipation PRN medication is ordered, administer step-lozano as indicated, moving to the next step ONLY if prior step ineffective. Step 1: senna-docusate (SENOKOT-S; PERICOLACE) OR bisacodyl (DULCOLAX) EC tablet Step 2: polyethylene glycol (MIRALAX/GLYCOLAX) Step 3: bisacodyl (DULCOLAX) suppository Step 4: enema Hold for loose stools. senna-docusate (SENOKOT-S/PERICOLACE) 8.6-50 MG per tablet 2 tablet 2 tablet, Oral, 2 TIMES DAILY PRN, constipation, Starting on Wed11/24/24 at 0218, IF more than 1 constipation PRN medication is ordered, administer step-loazno as indicated, moving to the next step ONLY if prior step ineffective. Step 1: senna-docusate (SENOKOT-S; PERICOLACE) OR bisacodyl (DULCOLAX) EC tablet Step 2: polyethylene glycol (MIRALAX/GLYCOLAX) Step 3: bisacodyl (DULCOLAX) suppository Step 4: enema Hold for loose stools. sodium chloride (PF) 0.9% PF flush 3 mL 3 mL, Intracatheter, EVERY 8 HOURS SCHEDULED, First dose on Wed11/24/24 at 0600, to lock peripheral IV dormant line $Given 11/29/2024 9:39 AM CDT 3 m Ls $Given 11/28/2024 11:20 PM CDT 3 mLs $Given 11/28/2024 7:26 PM CDT 3 mLs sodium chloride (PF) 0.9% PF flush 3 mL 3 mL, Intracatheter, EVERY 8 HOURS SCHEDULED, First dose on Wed11/28/24 at 2200, to lock peripheral IV dormant line $Given 11/29/2024 5:50 AM CDT 3 mLs sodium chloride 0.9 % infusion at 75 mL/hr, Intravenous, CONTINUOUS, Starting on Wed11/24/24 at 0230, Until 11/25/24 at 1547 $New Bag 11/25/2024 2:55 PM CDT 75 mL/hr $New Bag 11/25/2024 1:23 AM CDT 75 mL/hr Rate/Dose Change 11/24/2024 9:30 PM CDT 75 mL/h r sodium chloride 0.9% BOLUS 1,000 mL Intravenous, 1,000 mL, ONCE, at 250 mL/hr, Administer over 4 Hours, On Wed11/26/24 at 0830, For 1 dose $New Bag 11/26/2024 8:44 AM CDT 1,000 mLs 250 mL/hr sodium chloride 0.9% irrigation (bag) Irrigation, CONTINUOUS, Starting on Wed11/24/24 at 2300, CBI $New Bag 11/29/2024 6:09 AM CDT 3,000 mLs $New Bag 11/27/2024 6:46 AM CDT 3,000 mLs $New Bag 11/27/2024 2:00 AM CDT 3,000 mLs tamsulosin (FLOMAX) capsule 0.4 mg 0.4 mg, Oral, EVERY EVENING, First dose on 11/25/24 at 2000, Administer 30 minutes after the same meal each day. Capsules should be swallowed whole; do not crush chew or open. $Given 11/28/2024 7:21 PM CDT 0.4 mg $Given 11/27/2024 8:46 PM CDT 0.4 mg $Given 11/26/2024 7:45 PM CDT 0.4 mg documented in this encounter Active and Recently Administered Medications Times are shown in CDT. Scheduled Medication Order 11/27/2024 11/28/2024 11/29/2024 acetaminophen (TYLENOL) tablet 975 mg (COMPLETED)(Linked Group 1) 975 mg, Oral, ONCE, On Wed11/28/24 at 1430, For 1 dose, Maximum acetaminophen dose from all sources = 75 mg/kg/day not to exceed 4 grams/day., Pre-procedure 1421 ($Given - Provider: Tiffanie Jarvis, LAMBERTO) ceFAZolin Sodium (ANCEF) injection 2 g (COMPLETED) Routine, 2 g, Intravenous, PRE-OP/PRE-PROCEDURE, Starting on Wed11/28/24 at 1407, For 1 dose, Give first dose within 1 hour PRIOR to incision. If patient weight is greater than or equal to 120 kg increase dose to 3 g., Indications: Perioperative Pharmacoprophylaxis, Pre-procedure 1512 ($Given - Provider: Sultana Pimentel APRN [employer]) cefTRIAXone (ROCEPHIN) 1 g vial to attach to NS 100 mL bag for ADULTS or NS 50 mL bag for PEDS Routine, 1 g, Intravenous, EVERY 24 HOURS, First dose on Wed11/24/24 at 1900, Lactated Ringer's solution is not compatible with ceftriaxone for injection, Indications: Urinary Tract Infection 1928 ($New Bag - Provider: Leoncio Chaudhry RN) 1402 (Auto Hold - Provider: Orders Generic Provider - Reason: Transfer to a procedural area)1855 (Unhold - Provider: Orders Generic Provider)192 ($New Bag - Provider: Jammie Lara, LAMBERTO) finasteride (PROSCAR) tablet 5 mg 5 mg, Oral, DAILY, First dose on Wed11/26/24 at 0900, *Do not handle tablets if you are * 1026 ($Given - Provider: Leoncio Chaudhry RN) 1003 ($Given - Provider: Whit Escobar RN)1402 (Auto Hold - Provider: Orders Generic Provider - Reason: Transfer to a procedural area)1855 (Unhold - Provider: Orders Generic Provider) 0939 ($Given - Provider: Viky Jolly RN) gentamicin (GARAMYCIN) infusion 80 mg (COMPLETED) Routine, 80 mg, Intravenous, ONCE, On Wed11/28/24 at 1430, For 1 dose, Indications: Perioperative Pharmacoprophylaxis, Pre-procedure 1421 ($New Bag - Provider: Tiffanie Jarvis, LAMBERTO) oxyBUTYnin ER (DITROPAN XL) 24 hr tablet 10 mg (COMPLETED) 10 mg, Oral, ONCE, On Wed11/28/24 at 1430, For 1 dose, DO NOT CRUSH. Give in pre op, Pre-procedure 1455 ($Given - Provider: Per De La Vega RN) sodium chloride (PF) 0.9% PF flush 3 mL 3 mL, Intracatheter, EVERY 8 HOURS SCHEDULED, First dose on Wed11/24/24 at 0600, to lock peripheral IV dormant line 1027 ($Given - Provider: Leoncio Chaudhry, LAMBERTO)1749 (Not Given - Provider: Leoncio Chaudhry RN - Reason: Patient/family refused) 0006 (Not Given - Provider: Ave Dudley RN - Reason: Other)1006 ($Given - Provider: Whit Escobar RN)1402 (Auto Hold - Provider: Orders Generic Provider - Reason: Transfer to a procedural area)1600 (Automatically Held - Provider: Orders Generic Provider)1855 (Unhold - Provider: Orders Generic Provider)1926 ($Given - Provider: Jammie Lara RN)2320 ($Given - Provider: Ofelia Valente RN) 0939 ($Given - Provider: Viky Jolly, LAMBERTO)1600 (Canceled Entry - Provider: Orders Generic Provider - Comment: Automatically canceled at discontinue of medication order) sodium chloride (PF) 0.9% PF flush 3 mL 3 mL, Intracatheter, EVERY 8 HOURS SCHEDULED, First dose on Wed11/28/24 at 2200, to lock peripheral IV dormant line 2200 (Canceled Entry - Provider: Jammie Lara, LAMBERTO) 0550 ($Given - Provider: Ofelia Valente RN)1400 (Canceled Entry - Provider: Orders Generic Provider - Comment: Automatically canceled at discontinue of medication order) tamsulosin (FLOMAX) capsule 0.4 mg 0.4 mg, Oral, EVERY EVENING, First dose on Wed11/25/24 at 2000, Administer 30 minutes after the same meal each day. Capsules should be swallowed whole; do not crush chew or open. 2045 ($Given - Provider: Ave Dudley RN) 140 (Auto Hold - Provider: Orders Generic Provider - Reason: Transfer to a procedural area)185 (Unhold - Provider: Orders Generic Provider)1920 ($Given - Provider: Jammie Lara, LAMBERTO) Continuous Medication Order 11/27/2024 11/28/2024 11/29/2024 lactated ringers infusion (CANCELED) at 10 mL/hr, Intravenous, CONTINUOUS, IF patient NOT on dialysis., Pre-procedure, Starting on Wed11/28/24 at 1430, Until Wed11/28/24 at 1747 1507 ($New Bag - Provider: Sultana Pimentel APRN [employer] - Comment: started in preop)1730 ($New Bag - Provider: Sultana Pimentel APRN [employer]) sodium chloride 0.9% irrigation (bag) Irrigation, CONTINUOUS, Starting on Wed11/24/24 at 2300, CBI 0200 ($New Bag - Provider: Jammie Lara RN)0646 ($New Bag - Provider: Jammie Lara RN) 0609 ($New Bag - Provider: Ofelia Valente RN) PRN Medication Order 11/27/2024 11/28/2024 11/29/2024 acetaminophen (TYLENOL) Suppository 650 mg(Linked Group 2) 650 mg, Rectal, EVERY 4 HOURS PRN, mild pain, other, and adjunct with moderate or severe pain or per patient request, Starting on Wed11/24/24 at 0221, Alternate with ibuprofen if ordered. Maximum acetaminophen dose from all sources = 75 mg/kg/day not to exceed 4 grams/day. 338 (See Alternative - Provider: Jammie Lara, LAMBERTO) 140 (Auto Hold - Provider: Orders Generic Provider - Reason: Transfer to a procedural area)1854 (Unhold - Provider: Orders Generic Provider)1941 (See Alternative - Provider: Jammie Lara RN) acetaminophen (TYLENOL) tablet 650 mg(Linked Group 2) 650 mg, Oral, EVERY 4 HOURS PRN, mild pain, other, and adjunct with moderate or severe pain or per patient request, Starting on Wed11/24/24 at 0221, Alternate with ibuprofen if ordered. Maximum acetaminophen dose from all sources = 75 mg/kg/day not to exceed 4 grams/day. 0339 ($Given - Provider: Jammie Lara, LAMBERTO) 1402 (Auto Hold - Provider: Orders Generic Provider - Reason: Transfer to a procedural area)185 (Unhold - Provider: Orders Generic Provider)1942 ($Given - Provider: Jammie Lara, RN) acetaminophen (TYLENOL) tablet 650 mg 650 mg, Oral, EVERY 6 HOURS PRN, mild pain, Starting on Wed11/28/24 at 1841, Do not use if patient has an active opioid/acetaminophen analgesic order for pain. Maximum acetaminophen dose from all sources = 75 mg/kg/day not to exceed 4 grams/day. calcium carbonate (TUMS) chewable tablet 1,000 mg 1,000 mg, Oral, 4 TIMES DAILY PRN, heartburn, Starting on Wed11/24/24 at 0218 1402 (Auto Hold - Provider: Orders Generic Provider - Reason: Transfer to a procedural area)185 (Unhold - Provider: Orders Generic Provider) HYDROmorphone (DILAUDID) injection 0.2 mg 0.2 mg, Intravenous, EVERY 2 HOURS PRN, moderate pain, IF patient cannot take oral opioid OR IF pain not managed with non-pharmacological, non-opioid, or oral opioid interventions if ordered, Starting on Wed11/24/24 at 0221, May use concomitant with non-opioid analgesics. 1402 (Auto Hold - Provider: Orders Generic Provider - Reason: Transfer to a procedural area)185 (Unhold - Provider: Orders Generic Provider) HYDROmorphone (DILAUDID) injection 0.4 mg 0.4 mg, Intravenous, EVERY 2 HOURS PRN, severe pain, IF patient cannot take oral opioid OR IF pain not managed with non-pharmacological, non-opioid, or oral opioid interventions if ordered, Starting on Wed11/24/24 at 0221, May use concomitant with non-opioid analgesics. 1402 (Auto Hold - Provider: Orders Generic Provider - Reason: Transfer to a procedural area)185 (Unhold - Provider: Orders Generic Provider) hyoscyamine (LEVSIN/SL) sublingual tablet 125 mcg 125 mcg, Sublingual, EVERY 4 HOURS PRN, cramping, Starting on Wed11/24/24 at 1836, Patients using antacids should take hyoscyamine before meals and the antacid after meals. 1402 (Auto Hold - Provider: Orders Generic Provider - Reason: Transfer to a procedural area)1854 (Unhold - Provider: Orders Generic Provider) lidocaine (LMX4) cream Topical, EVERY 1 HOUR PRN, pain, with VAD insertion, Starting on Wed11/24/24 at 0218, Apply at least 30 minutes prior to VAD insertion in divided doses as needed for size of site for insertion. MAX Dose: 2.5 g ( of 5 g tube) Do NOT give if patient has a history of allergy to any local anesthetic or any john product. Do NOT use both lidocaine intradermal/subcutaneous injection and the lidocaine cream on the same site. 140 (Auto Hold - Provider: Orders Generic Provider - Reason: Transfer to a procedural area)1854 (Unhold - Provider: Orders Generic Provider) lidocaine (LMX4) cream Topical, EVERY 1 HOUR PRN, pain, with VAD insertion, Starting on Wed11/28/24 at 1841, Apply at least 30 minutes prior to VAD insertion in divided doses as needed for size of site for insertion. MAX Dose: 2.5 g ( of 5 g tube) Do NOT give if patient has a history of allergy to any local anesthetic or any john product. Do NOT use both lidocaine intradermal/subcutaneous injection and the lidocaine cream on the same site. lidocaine 1 % 0.1-1 mL 0.1-1 mL, Other, EVERY 1 HOUR PRN, mild pain with VAD insertion, Starting on Wed11/24/24 at 0218, MAX dose 1 mL subcutaneous OR intradermal along the side of the vein in divided doses as needed for VAD insertion. Do NOT give if patient has a history of allergy to any local anesthetic or any john product. Do NOT use both lidocaine intradermal/subcutaneous injection and the lidocaine cream on the same site. 1402 (Auto Hold - Provider: Orders Generic Provider - Reason: Transfer to a procedural area)1854 (Unhold - Provider: Orders Generic Provider) lidocaine 1 % 0.1-1 mL 0.1-1 mL, Other, EVERY 1 HOUR PRN, mild pain with VAD insertion, Starting on Wed11/28/24 at 1841, MAX dose 1 mL subcutaneous OR intradermal along the side of the vein in divided doses as needed for VAD insertion. Do NOT give if patient has a history of allergy to any local anesthetic or any john product. Do NOT use both lidocaine intradermal/subcutaneous injection and the lidocaine cream on the same site. naloxone (NARCAN) injection 0.2 mg(Linked Group 3) 0.2 mg, Intravenous, EVERY 2 MIN PRN, opioid reversal, Starting on Wed11/24/24 at 0506, Administer intravenous route when available and notify provider when administered. For unintended sedation or respiratory depression if all of the below criteria are met: ~ respiratory rate LESS than or EQUAL to 8. ~SaO2 less than 92% and or/end-tidal CO2 is greater than 50. ~ the patient is receiving an opioid, has unintended sedations assessed as RASS (-3), and is currently not on mechanical ventilation. RASS scale moderate (-3) is movement or eye opening to voice but no eye contact. Patient Monitoring Once the patient has demonstrated a response to the naloxone, continue to monitor respiratory rate, depth, oxygen saturation and end-tidal CO2 (if available) every 15 minutes x 2, then every 30 minutes x 2, then every 1 hour x 1 after each naloxone dose. Consider transfer to ICU if patient respiratory parameters have not improved after 4 naloxone doses. 1402 (Auto Hold - Provider: Orders Generic Provider - Reason: Transfer to a procedural area)1855 (Unhold - Provider: Orders Generic Provider) naloxone (NARCAN) injection 0.2 mg(Linked Group 3) 0.2 mg, Intramuscular, EVERY 2 MIN PRN, opioid reversal, Starting on Wed11/24/24 at 0506, Administer intramuscular if an intravenous route is not available and notify provider when administered. For unintended sedation or respiratory depression if all of the below criteria are met: ~ respiratory rate LESS than or EQUAL to 8. ~SaO2 less than 92% and or/end-tidal CO2 is greater than 50. ~ the patient is receiving an opioid, has unintended sedations assessed as RASS (-3), and is currently not on mechanical ventilation. RASS scale moderate (-3) is movement or eye opening to voice but no eye contact. Patient Monitoring Once the patient has demonstrated a response to the naloxone, continue to monitor respiratory rate, depth, oxygen saturation and end-tidal CO2 (if available) every 15 minutes x 2, then every 30 minutes x 2, then every 1 hour x 1 after each naloxone dose. Consider transfer to ICU if patient respiratory parameters have not improved after 4 naloxone doses. 1402 (Auto Hold - Provider: Orders Generic Provider - Reason: Transfer to a procedural area)185 (Unhold - Provider: Orders Generic Provider) naloxone (NARCAN) injection 0.4 mg(Linked Group 3) 0.4 mg, Intravenous, EVERY 2 MIN PRN, opioid reversal, Starting on Wed11/24/24 at 0506, Administer intravenous route when available and notify provider when administered. For unintended sedation or respiratory depression if all of the below criteria are met: ~ respiratory rate LESS than or EQUAL to 8. ~ SaO2 less than 92% and or/end-tidal CO2 is greater than 50. ~ the patient is receiving an opioid, has unintended sedation assessed as RASS (-4) or (-5) and patient is currently not on mechanical ventilation. RASS scale (-4) is deep sedation with no response to voice but movement or eye opening to physical stimulation. RASS scale (-5) is unarousable. Patient Monitoring Once the patient has demonstrated a response to the naloxone, continue to monitor respiratory rate, depth, oxygen saturation and end-tidal CO2 (if available) every 15 minutes x 2, then every 30 minutes x 2, then every 1 hour x 1 after each naloxone dose. Consider transfer to ICU if patient respiratory parameters have not improved after 4 naloxone doses. 1402 (Auto Hold - Provider: Orders Generic Provider - Reason: Transfer to a procedural area)185 (Unhold - Provider: Orders Generic Provider) naloxone (NARCAN) injection 0.4 mg(Linked Group 3) 0.4 mg, Intramuscular, EVERY 2 MIN PRN, opioid reversal, Starting on Wed11/24/24 at 0506, Administer intramuscular if an intravenous route is not available and notify provider when administered. For unintended sedation or respiratory depression if all of the below criteria are met: ~ respiratory rate LESS than or EQUAL to 8. ~ SaO2 less than 92% and or/end-tidal CO2 is greater than 50. ~ the patient is receiving an opioid, has unintended sedation assessed as RASS (-4) or (-5) and patient is currently not on mechanical ventilation. RASS scale (-4) is deep sedation with no response to voice but movement or eye opening to physical stimulation. RASS scale (-5) is unarousable. Patient Monitoring Once the patient has demonstrated a response to the naloxone, continue to monitor respiratory rate, depth, oxygen saturation and end-tidal CO2 (if available) every 15 minutes x 2, then every 30 minutes x 2, then every 1 hour x 1 after each naloxone dose. Consider transfer to ICU if patient respiratory parameters have not improved after 4 naloxone doses. 1402 (Auto Hold - Provider: Orders Generic Provider - Reason: Transfer to a procedural area)1854 (Unhold - Provider: Orders Generic Provider) ondansetron (ZOFRAN ODT) ODT tab 4 mg(Linked Group 4) 4 mg, Oral, EVERY 6 HOURS PRN, nausea/vomiting - 1st line, Starting on Wed11/24/24 at 0221, This is Step 1 of nausea and vomiting management. If nausea not resolved in 15 minutes, go to Step 2 prochlorperazine (COMPAZINE). With dry hands, peel back foil backing and gently remove tablet. Do not push oral disintegrating tablet through foil backing. Administer immediately on tongue and oral disintegrating tablet dissolves in seconds, then swallow with saliva. Liquid not required. 140 (Auto Hold - Provider: Orders Generic Provider - Reason: Transfer to a procedural area)1854 (Unhold - Provider: Orders Generic Provider) ondansetron (ZOFRAN) injection 4 mg(Linked Group 4) 4 mg, Intravenous, EVERY 6 HOURS PRN, nausea/vomiting - 1st line, Administer over 2-5 Minutes, Starting on Wed11/24/24 at 0221, Give IF patient unable to tolerate oral medication. This is Step 1 of nausea and vomiting management. If nausea not resolved in 15 minutes, go to Step 2 prochlorperazine (COMPAZINE). 140 (Auto Hold - Provider: Orders Generic Provider - Reason: Transfer to a procedural area)1854 (Unhold - Provider: Orders Generic Provider) opium-belladonna (B&O SUPPRETTES) 30-16.2 MG per suppository 1 suppository 1 suppository (30 mg), Rectal, EVERY 8 HOURS PRN, Starting on Wed11/25/24 at 0531, bladder spasms 140 (Auto Hold - Provider: Orders Generic Provider - Reason: Transfer to a procedural area)1854 (Unhold - Provider: Orders Generic Provider) opium-belladonna (B&O SUPPRETTES) 30-16.2 MG per suppository PRN, Starting on Wed11/24/24 at 1714, Intra-procedure oxyCODONE (ROXICODONE) tablet 5 mg 5 mg, Oral, EVERY 4 HOURS PRN, severe pain, IF pain not managed with non-pharmacological and non-opioid interventions, Starting on Wed11/24/24 at 0221, May use concomitant with non-opioid analgesics. 1402 (Auto Hold - Provider: Orders Generic Provider - Reason: Transfer to a procedural area)185 (Unhold - Provider: Orders Generic Provider) oxyCODONE IR (ROXICODONE) half-tab 2.5 mg 2.5 mg, Oral, EVERY 4 HOURS PRN, moderate pain, IF pain not managed with non-pharmacological and non-opioid interventions, Starting on Wed11/24/24 at 0221, May use concomitant with non-opioid analgesics. 1402 (Auto Hold - Provider: Orders Generic Provider - Reason: Transfer to a procedural area)185 (Unhold - Provider: Orders Generic Provider)1942 ($Given - Provider: Jammie Lara RN) polyethylene glycol (MIRALAX) Packet 17 g 17 g, Oral, 2 TIMES DAILY PRN, constipation, Starting on Wed11/24/24 at 0221, IF more than 1 constipation PRN medication is ordered, administer step-lozano as indicated, moving to the next step ONLY if prior step ineffective. Step 1: senna-docusate (SENOKOT-S; PERICOLACE) OR bisacodyl (DULCOLAX) EC tablet Step 2: polyethylene glycol (MIRALAX/GLYCOLAX) Step 3: bisacodyl (DULCOLAX) suppository Step 4: enema 1 Packet = 17 grams. Mix each gram with at least 1/2 ounce (15 mL) of water - 8 ounces for 17 g dose, 4 ounces for 8.5 g dose, 2 ounces for 4 g dose. Follow with the same volume of water. Hold for loose stools unless being administered as part of a bowel prep regimen or bowel clean out. 1402 (Auto Hold - Provider: Orders Generic Provider - Reason: Transfer to a procedural area)185 (Unhold - Provider: Orders Generic Provider) prochlorperazine (COMPAZINE) injection 5 mg(Linked Group 5) 5 mg, Intravenous, EVERY 6 HOURS PRN, nausea/vomiting - 2nd line, Administer over 1-2 Minutes, Starting on Wed11/24/24 at 0221, IF patient unable to tolerate oral medication. This is Step 2 of nausea and vomiting management. Give if nausea not resolved 15 minutes after giving ondansetron (ZOFRAN). 140 (Auto Hold - Provider: Orders Generic Provider - Reason: Transfer to a procedural area)185 (Unhold - Provider: Orders Generic Provider) prochlorperazine (COMPAZINE) tablet 5 mg(Linked Group 5) 5 mg, Oral, EVERY 6 HOURS PRN, nausea/vomiting - 2nd line, Starting on Wed11/24/24 at 0221, This is Step 2 of nausea and vomiting management. Give if nausea not resolved 15 minutes after giving ondansetron (ZOFRAN). 140 (Auto Hold - Provider: Orders Generic Provider - Reason: Transfer to a procedural area)1854 (Unhold - Provider: Orders Generic Provider) senna-docusate (SENOKOT-S/PERICOLACE) 8.6-50 MG per tablet 1 tablet(Linked Group 6) 1 tablet, Oral, 2 TIMES DAILY PRN, constipation, Starting on Wed11/24/24 at 0218, If no bowel movement in 24 hours, increase to 2 tablets by mouth. IF more than 1 constipation PRN medication is ordered, administer step-lozano as indicated, moving to the next step ONLY if prior step ineffective. Step 1: senna-docusate (SENOKOT-S; PERICOLACE) OR bisacodyl (DULCOLAX) EC tablet Step 2: polyethylene glycol (MIRALAX/GLYCOLAX) Step 3: bisacodyl (DULCOLAX) suppository Step 4: enema Hold for loose stools. 140 (Auto Hold - Provider: Orders Generic Provider - Reason: Transfer to a procedural area)185 (Unhold - Provider: Orders Generic Provider) senna-docusate (SENOKOT-S/PERICOLACE) 8.6-50 MG per tablet 2 tablet(Linked Group 6) 2 tablet, Oral, 2 TIMES DAILY PRN, constipation, Starting on Wed11/24/24 at 0218, IF more than 1 constipation PRN medication is ordered, administer step-lozano as indicated, moving to the next step ONLY if prior step ineffective. Step 1: senna-docusate (SENOKOT-S; PERICOLACE) OR bisacodyl (DULCOLAX) EC tablet Step 2: polyethylene glycol (MIRALAX/GLYCOLAX) Step 3: bisacodyl (DULCOLAX) suppository Step 4: enema Hold for loose stools. 1402 (Auto Hold - Provider: Orders Generic Provider - Reason: Transfer to a procedural area)1855 (Unhold - Provider: Orders Generic Provider) sodium chloride (PF) 0.9% PF flush 3 mL 3 mL, Intracatheter, EVERY 1 MIN PRN, line flush, other, to ensure patency or to lock dormant line, Starting on Wed11/24/24 at 0218 1402 (Auto Hold - Provider: Orders Generic Provider - Reason: Transfer to a procedural area)1855 (Unhold - Provider: Orders Generic Provider) sodium chloride (PF) 0.9% PF flush 3 mL 3 mL, Intracatheter, EVERY 1 MIN PRN, line flush, other, to ensure patency or to lock dormant line, Starting on Wed11/28/24 at 1841 sodium chloride 0.9% irrigation (bag) (CANCELED) PRN, Starting on Wed11/28/24 at 1532, Intra-procedure 1532 ($Given - Provider: Geronimo Carter MD)1554 ($Given - Provider: Geronimo Carter MD)1602 ($Given - Provider: Geronimo Carter MD)1604 ($Given - Provider: Geronimo Carter MD)1621 ($Given - Provider: Geronimo Carter MD)1653 ($Given - Provider: Geronimo Carter MD)1654 ($Given - Provider: Geronimo Carter MD)1750 ($Given - Provider: Geronimo Carter MD) sodium chloride 0.9% irrigation (bag) (CANCELED) PRN, Starting on Wed11/28/24 at 1721, Intra-procedure 1721 ($Given - Provider: Geronimo Carter MD)1727 ($Given - Provider: Geronimo Carter MD)1729 ($Given - Provider: Geronimo Carter MD)1731 ($Given - Provider: Geronimo Carter MD)1732 ($Given - Provider: Geronimo Carter MD)1737 ($Given - Provider: Geronimo Carter MD) sterile water (bottle) irrigation (CANCELED) PRN, Intra-procedure, Starting on Wed11/28/24 at 1515, Until Wed11/28/24 at 1747 1515 ($Given - Provider: Geronimo Carter MD) Linked Groups Order Group 1: acetaminophen (TYLENOL) tablet 975 mg (COMPLETED)Jump to med 975 mg, Oral, ONCE, On Wed11/28/24 at 1430, For 1 dose, Maximum acetaminophen dose from all sources = 75 mg/kg/day not to exceed 4 grams/day., Pre-procedure Or acetaminophen (TYLENOL) Suppository 650 mg (COMPLETED) 650 mg, Rectal, ONCE, On Wed11/28/24 at 1430, For 1 dose, Maximum acetaminophen dose from all sources = 75 mg/kg/day not to exceed 4 grams/day., Pre-procedure Group 2: acetaminophen (TYLENOL) tablet 650 mgJump to med 650 mg, Oral, EVERY 4 HOURS PRN, mild pain, other, and adjunct with moderate or severe pain or per patient request, Starting on Wed11/24/24 at 0221, Alternate with ibuprofen if ordered. Maximum acetaminophen dose from all sources = 75 mg/kg/day not to exceed 4 grams/day. Or acetaminophen (TYLENOL) Suppository 650 mgJump to med 650 mg, Rectal, EVERY 4 HOURS PRN, mild pain, other, and adjunct with moderate or severe pain or per patient request, Starting on Wed11/24/24 at 0221, Alternate with ibuprofen if ordered. Maximum acetaminophen dose from all sources = 75 mg/kg/day not to exceed 4 grams/day. Group 3: naloxone (NARCAN) injection 0.2 mgJump to med 0.2 mg, Intravenous, EVERY 2 MIN PRN, opioid reversal, Starting on Wed11/24/24 at 0506, Administer intravenous route when available and notify provider when administered. For unintended sedation or respiratory depression if all of the below criteria are met: ~ respiratory rate LESS than or EQUAL to 8. ~SaO2 less than 92% and or/end-tidal CO2 is greater than 50. ~ the patient is receiving an opioid, has unintended sedations assessed as RASS (-3), and is currently not on mechanical ventilation. RASS scale moderate (-3) is movement or eye opening to voice but no eye contact. Patient Monitoring Once the patient has demonstrated a response to the naloxone, continue to monitor respiratory rate, depth, oxygen saturation and end-tidal CO2 (if available) every 15 minutes x 2, then every 30 minutes x 2, then every 1 hour x 1 after each naloxone dose. Consider transfer to ICU if patient respiratory parameters have not improved after 4 naloxone doses. Or naloxone (NARCAN) injection 0.4 mgJump to med 0.4 mg, Intravenous, EVERY 2 MIN PRN, opioid reversal, Starting on Wed11/24/24 at 0506, Administer intravenous route when available and notify provider when administered. For unintended sedation or respiratory depression if all of the below criteria are met: ~ respiratory rate LESS than or EQUAL to 8. ~ SaO2 less than 92% and or/end-tidal CO2 is greater than 50. ~ the patient is receiving an opioid, has unintended sedation assessed as RASS (-4) or (-5) and patient is currently not on mechanical ventilation. RASS scale (-4) is deep sedation with no response to voice but movement or eye opening to physical stimulation. RASS scale (-5) is unarousable. Patient Monitoring Once the patient has demonstrated a response to the naloxone, continue to monitor respiratory rate, depth, oxygen saturation and end-tidal CO2 (if available) every 15 minutes x 2, then every 30 minutes x 2, then every 1 hour x 1 after each naloxone dose. Consider transfer to ICU if patient respiratory parameters have not improved after 4 naloxone doses. Or naloxone (NARCAN) injection 0.2 mgJump to med 0.2 mg, Intramuscular, EVERY 2 MIN PRN, opioid reversal, Starting on Wed11/24/24 at 0506, Administer intramuscular if an intravenous route is not available and notify provider when administered. For unintended sedation or respiratory depression if all of the below criteria are met: ~ respiratory rate LESS than or EQUAL to 8. ~SaO2 less than 92% and or/end-tidal CO2 is greater than 50. ~ the patient is receiving an opioid, has unintended sedations assessed as RASS (-3), and is currently not on mechanical ventilation. RASS scale moderate (-3) is movement or eye opening to voice but no eye contact. Patient Monitoring Once the patient has demonstrated a response to the naloxone, continue to monitor respiratory rate, depth, oxygen saturation and end-tidal CO2 (if available) every 15 minutes x 2, then every 30 minutes x 2, then every 1 hour x 1 after each naloxone dose. Consider transfer to ICU if patient respiratory parameters have not improved after 4 naloxone doses. Or naloxone (NARCAN) injection 0.4 mgJump to med 0.4 mg, Intramuscular, EVERY 2 MIN PRN, opioid reversal, Starting on Wed11/24/24 at 0506, Administer intramuscular if an intravenous route is not available and notify provider when administered. For unintended sedation or respiratory depression if all of the below criteria are met: ~ respiratory rate LESS than or EQUAL to 8. ~ SaO2 less than 92% and or/end-tidal CO2 is greater than 50. ~ the patient is receiving an opioid, has unintended sedation assessed as RASS (-4) or (-5) and patient is currently not on mechanical ventilation. RASS scale (-4) is deep sedation with no response to voice but movement or eye opening to physical stimulation. RASS scale (-5) is unarousable. Patient Monitoring Once the patient has demonstrated a response to the naloxone, continue to monitor respiratory rate, depth, oxygen saturation and end-tidal CO2 (if available) every 15 minutes x 2, then every 30 minutes x 2, then every 1 hour x 1 after each naloxone dose. Consider transfer to ICU if patient respiratory parameters have not improved after 4 naloxone doses. Group 4: ondansetron (ZOFRAN ODT) ODT tab 4 mgJump to med 4 mg, Oral, EVERY 6 HOURS PRN, nausea/vomiting - 1st line, Starting on Wed11/24/24 at 0221, This is Step 1 of nausea and vomiting management. If nausea not resolved in 15 minutes, go to Step 2 prochlorperazine (COMPAZINE). With dry hands, peel back foil backing and gently remove tablet. Do not push oral disintegrating tablet through foil backing. Administer immediately on tongue and oral disintegrating tablet dissolves in seconds, then swallow with saliva. Liquid not required. Or ondansetron (ZOFRAN) injection 4 mgJump to med 4 mg, Intravenous, EVERY 6 HOURS PRN, nausea/vomiting - 1st line, Administer over 2-5 Minutes, Starting on Wed11/24/24 at 0221, Give IF patient unable to tolerate oral medication. This is Step 1 of nausea and vomiting management. If nausea not resolved in 15 minutes, go to Step 2 prochlorperazine (COMPAZINE). Group 5: prochlorperazine (COMPAZINE) injection 5 mgJump to med 5 mg, Intravenous, EVERY 6 HOURS PRN, nausea/vomiting - 2nd line, Administer over 1-2 Minutes, Starting on Wed11/24/24 at 0221, IF patient unable to tolerate oral medication. This is Step 2 of nausea and vomiting management. Give if nausea not resolved 15 minutes after giving ondansetron (ZOFRAN). Or prochlorperazine (COMPAZINE) tablet 5 mgJump to med 5 mg, Oral, EVERY 6 HOURS PRN, nausea/vomiting - 2nd line, Starting on Wed11/24/24 at 0221, This is Step 2 of nausea and vomiting management. Give if nausea not resolved 15 minutes after giving ondansetron (ZOFRAN). Group 6: senna-docusate (SENOKOT-S/PERICOLACE) 8.6-50 MG per tablet 1 tabletJump to med 1 tablet, Oral, 2 TIMES DAILY PRN, constipation, Starting on Wed11/24/24 at 0218, If no bowel movement in 24 hours, increase to 2 tablets by mouth. IF more than 1 constipation PRN medication is ordered, administer step-lozano as indicated, moving to the next step ONLY if prior step ineffective. Step 1: senna-docusate (SENOKOT-S; PERICOLACE) OR bisacodyl (DULCOLAX) EC tablet Step 2: polyethylene glycol (MIRALAX/GLYCOLAX) Step 3: bisacodyl (DULCOLAX) suppository Step 4: enema Hold for loose stools. Or senna-docusate (SENOKOT-S/PERICOLACE) 8.6-50 MG per tablet 2 tabletJump to med 2 tablet, Oral, 2 TIMES DAILY PRN, constipation, Starting on Wed11/24/24 at 0218, IF more than 1 constipation PRN medication is ordered, administer step-lozano as indicated, moving to the next step ONLY if prior step ineffective. Step 1: senna-docusate (SENOKOT-S; PERICOLACE) OR bisacodyl (DULCOLAX) EC tablet Step 2: polyethylene glycol (MIRALAX/GLYCOLAX) Step 3: bisacodyl (DULCOLAX) suppository Step 4: enema Hold for loose stools. documented in this encounter Care Teams Associate Faculty Relationship Specialty Start Date End Date No Ref-Primary, Physician PCP - General 11/24/24 documented as of this encounter
--- OUTSIDE RECORDS SUMMARY | 2024-11-24 16:00 | XMS_ITS | Encounter Summary ---
Author Organization [place] Address [address] [place] [address] Care Team Providers Care Product Introduction Manager Name Role Phone No Ref-Primary, Physician Primary Care Provider Reason for Visit * Auth/Cert Specialty Diagnoses / Procedures Referred By Kelvin camacho Referred To Contact Med Surg Diagnoses Kidney stone Kidney stone Get Figueroa DO [address] [address] Phone: tel: fax: [facility] General Surgery [address] [address] Phone: tel: fax: Referral ID Status Reason Start Date Expiration Date Visits Re quested Visits Authorized [id number] 1 1 Encounter Details Date Type Department Care Team (Late st Contact Info) Description 11/24/2024 4:00 PM CDT - 11/24/2024 5:15 PM CDT Surgery [facility] PeriOP Services [address] [place] [address] Franky Turner MD [facility] [address] [id number] RIGHT KIDNEY WASHING, RIGHT URETERAL STENT INSERTION, RIGHT RETROGRADE PYELOGRAM, CYSTOSCOPY Surgery Details Date/Time Status Location OR Service Patient Class Case Cl ass Case Type Trauma Case? 11/24/2024 4:00 PM Posted OR OR [facility] Urology Inpatient NEST 4 - Urgent (within 12hrs) Panel 1 Procedure LRB Anes Op Region Wound Class Comments RIGHT KIDNEY WASHING, RIGHT URETERAL STENT INSERTION, RIGHT RETROGRADE PYELOGRAM, CYSTOSCOPY Right Choice Urethra II-Clean Contaminated Surgeon Surgeon Role Service Panel Franky Turner MD Primary Urology 1 documented in this encounter Social History Tobacco Use Types Packs/Day Years [...] in an abandoned building, in an overnight residential, or couch-surfing.) Yes 11/24/2024 Are you worried [...] Sign Reading Time Taken Comments Blood Pressure 148/92 11/24/2024 2:55 PM CDT Pulse 81 11/24/2024 2:55 PM CDT Temperature 36.6 C (97.8 F) 11/24/2024 2:55 PM CDT Respiratory Rate 17 11/24/2024 2:55 PM CDT Oxygen Saturation 98% 11/24/2024 2:55 PM CDT Inhaled Oxygen Concentration - - Weight 69.8 kg (153 lb 14.1 oz) 11/24/2024 5:21 AM CDT Height 177.8 cm (5' 10) 11/24/2024 5:21 AM CDT Body Mass Index 22.08 11/24/2024 5:21 AM CDT documented in this encounter Discharge Summaries * Adriana Chan MD - 11/29/2024 1:38 PM CDT Images from the original note were not included. [facility] Discharge Summary Hospitalist Date of Admission: 11/24/2024 [...] NOT able to reach your Surgeon Team, [facility] Urgent Care clinic. Do NOT go [...] physical activity for 2 weeks. Follow Up ([facility]) Follow up with [facility] in the coming weeks for definitive stone treatment. Our office will call you to schedule an appointment. If you do not hear from us within 3 business days of hospitaldischarge, please call [phone] to schedule an appointment. [facility] [address] [place] [address] You may call with any questions or [...] prior to the appointment. Please call Dr. Carter'sapdoverment office to schedule this appointment at least two months in advance. Follow-up will be with either Dr. Carter or her physician assistant statistician. Any general Urology questions can be addressed [...] be read by a radiologist or a [place] non-radiologist provider. CT Abdomen Pelvis w/o Contrast Narrative EXAM: CT ABDOMEN PELVIS W/O CONTRAST LOCATION: [facility] DATE: 11/24/2024 INDICATION: kidney stones, hematuria, confirm [...] Sanabria PA-C [facility] Pager: [phone] Office: [phone] * Adriana Chan MD - 11/28/2024 1:30 PM CDT [facility] Hospitalist Progress Note Assessment & Plan Dr. [...] Franky Turner MD 200 mL/hr at 11/27/24 1929 1 g at 11/27/24 1929 finasteride (PROSCAR) tablet 5 mg 5 mg Oral Daily Geronimo Carter MD 5 mg at 11/28/24 1003 sodium chloride (PF) 0.9% PF flush 3 mL 3 mL Intracatheter Q8H [facility] Carolina Get, DO 3 mL at 11/28/24 1006 tamsulosin (FLOMAX) capsule 0.4 mg 0.4 mg Oral QPM Geronimo Carter MD 0.4 mg at 11/27/24 204 Data Recent Labs Lab 11/28/24 1039 11/27/24 [...] in a few weeks. Jammie Cerna PA-C [facility] Office: [phone] During office hours you can reach me at my pager: [phone]. After 5:00 PM or on weekends, please call the office to be directed to the on-call urologist. Cosigned by Geronimo Carter MD at 11/28/2024 2:08 PM CDT Associated attestation - Geronimo Carter MD - 11/28/2024 2:08 PM CDT Physician Attestation I saw and evaluated David Campbell as part of a shared MEDICAL SCIENTIFIC LIAISON/PA visit. I personally reviewed the vital signs, [...] Dao MD - 11/27/2024 5:13 PM CDT [facility] Medicine Progress Note - Hospitalist Service Date [...] appropriate Social Drivers of Health Received from [employer] & [facility] Social Connections Disposition Plan Medically Ready for Discharge: Anticipated in 2-4 Days BRENNA DAO MD Hospitalist Service [facility] Securely message with [employer] (more info) Text page via [employer] Paging/Directory Physical Exam Vital Signs: Temp: 98.1 [...] Sanabria PA-C [facility] Pager: [phone] Office: [phone] * Sam Cast RN - 11/26/2024 6:55 PM CDT [id number] Patient is alert and oriented x4. Up [...] performed hand irrigations with ~200 ml NS. Medrano irrigated easily, no clots returned. CBI resumed [...] to discuss surgical logistics. Jammie Cerna PA-C [facility] Office: [phone] During office hours you can reach me at my pager: [phone]. After 5:00 PM or on weekends, please call the office to be directed to the on-call urologist. * Haley Tran MD - 11/26/2024 7:59 AM CDT [facility] Medicine Progress Note - Hospitalist Service Date [...] Factors Social Drivers of Health Received from [employer] & [employer] Disposition Plan Medically Ready for Discharge: Anticipated Tomorrow if okay with urology Haley Tran MD Hospitalist Service [facility] Securely message with [employer] (more info) Text page via [employer] Paging/Directory Interval History Patient was seen and [...] Carter MD - 11/25/2024 8:59 AM CDT [facility] Urology Progress Note Date of Service: 11/25/2024 Interval History Ongoing bleeding overnight, CBI POD#1 s/p cystoscopy, right stent placement. Complicated by need for indwelling Medrano catheter due to prostatic bleeding secondary to enlarged prostate. Otherwise upsized yesterday to 22 Dominican three-way. CBI started. Hand irrigated x 2 [...] median lobe. Hemoglobin dropped significantly overnight. 22 Dominican three-way inserted and hand irrigated. CBI started. [...] be read by a radiologist or a [place] non-radiologist provider. CT Abdomen Pelvis w/o Contrast Narrative EXAM: CT ABDOMEN PELVIS W/O CONTRAST LOCATION: [facility] DATE: 11/24/2024 INDICATION: kidney stones, hematuria, confirm [...] 11/25/2024 at 8:59 AM [facility] Urology * Haley Tran MD - 11/25/2024 8:33 AM CDT [facility] Medicine Progress Note - Hospitalist Service Date [...] suggests infection. [facility] - Continue ceftriaxone 2 g IV q24 [...] Factors Social Drivers of Health Received from [employer] & [facility] [place] Social Connections Disposition Plan Medically Ready for Discharge: Anticipated Tomorrow if okay with urology Haley Tran MD Hospitalist Service [facility] Securely message with [employer] (more info) Text page via [employer] Paging/Directory Interval History Patient was seen and [...] be read by a radiologist or a [place] non-radiologist provider. CT Abdomen Pelvis w/o Contrast Narrative EXAM: CT ABDOMEN PELVIS W/O CONTRAST LOCATION: [facility] DATE: 11/24/2024 INDICATION: kidney stones, hematuria, confirm [...] -- -- -- 106* 101* * Melissa Mcgowan, RN - 11/24/2024 6:42 PM CDT Assumed care of pt in pacu 0. * Pauline Goode RN - 11/24/2024 6:35 [...] Tran MD - 11/24/2024 7:51 AM CDT [facility] Medicine Progress Note - Hospitalist Service Date [...] suggests infection. [facility] -Continue ceftriaxone 2 g IV q24 hrs [...] Admission Social Drivers of Health Received from [employer] & [facility] [employer] Disposition Plan Medically Ready for Discharge: Anticipated Tomorrow Hospital medicine service would not be available to discharge patient late in the evening, unless urology would like patient to discharge postoperatively. Haley Tran MD Hospitalist Service [facility] Securely message with [employer] (more info) Text page via [facility] Paging/Directory Interval History Patient care was assumed [...] documented in this encounter H&P Notes * Get Figueroa DO - 11/24/2024 2:28 AM CDT [facility] History and Physical - Hospitalist Service Date [...] suggests infection. [facility] -continue ceftriaxone 2 g IV q24 hrs [...] Present on Admission Get Figueroa, Hospitalist Service [facility] Securely message with [employer] (more info) Text page via [facility] Paging/Directory Chief Complaint Right kidney stone, confusion History is obtained from the patient and review of records sent from ED. History of Present Illness David Campbell is a 69 year old male who has a history of kidney stones who presents to the ED at [facility] for confusion, fever and subsequently transferred to [facility] with an 8mm obstructing right kidney stone [...] for possible urosepsis. He was transferred to [facility] for possible urologic intervention. When I saw the patient on the surgical floor he notes that he feels much improved and almost back to normal in terms of mentation. He does not feel cloudy or confused and recalls the events of the day. He knows that he was transferred to [place] and clear answers questions appropriately. He denies [...] 7:57 AM CDTAssociated Order(s): UROLOGY IP CONSULT [facility] Inpatient Consultation Note David Campbell Age: [age] year old Date of : 1955 Date of Admission: 11/24/2024 Reason for consult: Stones Requesting physician: Dr. Figueroa History of Present Illness: David Campbell is a pleasant 69 year old year old male who presented to outside hospital on to confusion and fever. Found to have 8 mm right ureteral stone, bladder stones, right renal stones, hydronephrosis, enlarged prostate, and concern for UTI so was transferred to [facility] for urology consult . He does have [...] Resource Strain: Low Risk (08/20/2021) Received from [employer] & [facility] Financial Resource Strain Difficulty of Paying Living Expenses: 3 Difficulty of Paying Living Expenses: Not on file Food Insecurity: No Food Insecurity (08/20/2021) Received from [facility] Food Insecurity Worried About Running Out of Food in the Last Year: 1 Transportation Needs: No Transportation Needs (08/20/2021) Received from [facility] Transportation Needs Lack of Transportation (Medical): 1 Physical Activity: Not on file Stress: Not on file Social Connections: Unknown (09/07/2022) Received from [facility] Social Connections Frequency of Communication with Friends and Family: Not on file Interpersonal Safety: Not on file Housing Stability: Low Risk (08/20/2021) Received from [facility] Housing Stability Unable to Pay for Housing [...] 0.2 mg 0.2 mg Intravenous Q2 Min PRN Lucinda Jameson MD Or naloxone (NARCAN) injection 0.4 mg 0.4 mg Intravenous Q2 Min PRN Lucinda Jameson MD Or naloxone (NARCAN) injection 0.2 mg 0.2 mg Intramuscular Q2 Min PRN Lucinda Jameson MD Or naloxone (NARCAN) injection 0.4 mg 0.4 mg Intramuscular Q2 Min PRN Lucinda Jameson MD ondansetron (ZOFRAN ODT) ODT tab 4 [...] from the Admission note dated 11/24 at [facility] was reviewed with no changes except [...] Villalta (Etheridge), JOSSE [facility] Cosigned by Franky Turner MD at 12/06/2024 9:34 AM CDT Associated attestation - Franky Turner MD - 12/06/2024 9:34 AM CDT Physician Attestation I evaluated David Campbell as part of a shared MEDICAL SCIENTIFIC LIAISON/PA visit. I personally reviewed the vital signs, [...] 11/24/2024 9:05 PM CDT OK by SANJU Trammlel to transfer back to the floor. Personal [...] patient's bladder was first entered with a 22-Dominican rigid cystoscope with 0-degree lens. Cystoscopic examination showed normal anterior urethra. The posterior urethra showed bilobar enlargement of the prostate. Both ureteral orifices were identified away from the bladder neck. The rest of the examination was normal. The cystoscope was removed and the meatus was calibrated to 28- Dominican using sounds. The urethra was then filled with lubricant gel and a 26- Dominican Storz continuous-flow resectoscope was placed. The holmium laser apparatus was placed through the sheath. Using a 550-micron end-firing laser fiber with 10 cm of cladding stripped off, a laser bridge, and a ?-Dominican laser stabilizing catheter, the procedure was started [...] the offset Storz nephroscope and Blanca - Prianha tissue morcellator were then introduced and used [...] improvingOverall Patient Progress: improving Date & Time: 11/27-0-0730 Surgery/POD#: POD 3-4 Cysto w/R ureteral stent [...] 6:30 PM CDT Date & Time: 11/27/24 0496-7596 Surgery/POD#: POD3 Cysto w/R ureteral stent Behavior [...] rate--mainly light pink in color. Manual irrigation [id number]--us clots. Drains: PIV SL Diet: Regular Activity Level: Ax1 gb Anticipated DC Date: Possibly home later today pending possible TOV Significant Information: Baseline BUE tremors. * Plan of Care - Pauline Goode RN - 11/26/2024 2:30 PM CDT Date & Time: 11/26/24 5955-6811 Surgery/POD#: POD #2 s/p cysto, R kidney washing, R ureteral stent and CBI placement. Behavior & Aggression: Green, can be forgetful Fall Risk: Yes, low Hgb, some dizziness/unsteadiness Orientation:A/O, forgetful ABNL VS/O2:Some soft BPs, IVF bolus of 1000mL ordered and given. All other VS WDL ABNL Labs: Hgb 7.0, MD notified, blood ordered and 1 unit given, plan to redraw in AM per [facility]. Pain Management: Denies most pain, PRN B&O [...] MD Notified Person Name: Tran Notification Date/Time:11/26/24 5704 Notification Interaction: texted with MD Purpose of [...] Tylenol. Bowel/Bladder: Medrano w/ CBI at fast rate--research engineer pink in color this AM. Hand irrigated [...] STENT INSERTION, RIGHT RETROGRADE PYELOGRAM, CYSTOSCOPY STAFF Coal Hauler Operator: Ezra Duarte, RN; Ramesh Hoffman RN Scrub Person: Lalitha Diehl; Issa Barcenas SURGEON Surgeon(s): Franky Turner MD FINDINGS Clear urine from right kidney; bladder cystitis, stones in the bladder times 4; very large prostatewith medial lobe of prostate; significant bleeding upon Medrano placement; CBI is initiated EBL 300cc at the end of the case TECHNIQUE INDICATIONS FOR THE PROCEDURE: This is a 9-hfvh-djx-year-old man with a history of 8 mm obstructing right ureteral stone and signs of infection who has been transferred to [facility] from [facility] for stent placement. Unfortunately I was not able to review images myself done at [facility]. But I thoroughly reviewed the report with [...] prepped and draped in regular fashion. 22 Dominican cystoscope was placed per his urethra. Evaluation [...] catheter. I got called since the 20 Dominican Medrano catheter got clotted and I had to [...] in-person Pertinent Information: None Changes made to [facility] medication list: Added: all meds Deleted: None Changed: None Allergies reviewed with patient and updates made in EHR: yes Medication History Completed By: Jammie Benson RPH 11/24/2024 9:31 AM [facility] Med List Medication Sig Last Dose/Taking acetaminophen [...] 5:51 AM CDT SURGICAL PATHOLOGY EXAM Routine 11/28/2024 5:27 PM CDT STONE ANALYSIS Routine 11/28/2024 3:42 PM CDT HEMOGLOBIN Routine 11/28/2024 10:39 AM CDT HEMOGLOBIN [...] - BLOOD ORDERABLES Final Res ult LABORATORY [facility] [address], [address] [place] [address], [facility] [phone] * (ABNORMAL) Glucose by meter (11/29/2024 5:51 AM CDT) GLUCOSE BY METER POCT 108(H) 70 - 99 mg/dL 11/29/2024 5:58 AM CDT LABORATORY POC Blood, Capillary BLOOD SPECIMEN / Unknown 11/29/2024 5:51 AM CDT 11/29/2024 5:58 AM CDT us Brenna Dao MD LAB - BEAKER POCT Final Resul t LABORATORY POC [facility] [address], [address] [place] [address] * Surgical Pathology Exam (11/28/2024 5:27 PM CDT) Case Report Surgical Pathology Report Case: [id number] Authorizing Provider: Geronimo Carter MD Collected: 11/28/2024 05:27 PM Ordering Location: [facility] Received: 11/29/2024 06:54 AM [facility] OR Pathologist: Robert Mckeon MD Specimen: Prostate, PROSTATE 12/01/2024 9:36 AM CDT LABORATORY Final Diagnosis Prostate, transurethral resection- Benign prostate tissue consistent with benign prostatic hypertrophy 12/01/2024 9:36 AM CDT LABORATORY at 0936 CDT Clinical Information Procedure: Cystoscopy WITH HOLMIUM LASER ENUCLEATION OF THE PROSTATE Pre-op Diagnosis: Benign prostatic hyperplasia with lower urinary tract symptoms [N40.1] Post-op Diagnosis: N40.1 - Benign prostatic hyperplasia with lower urinary tract symptoms [ICD-10-CM] 12/01/2024 9:36 AM CDT LABORATORY Gross Description A(1). Prostate, PROSTATE: The specimen is received in formalin, labeled with the patient's name, medical record number and other identifying information designated prostate. It consists of a 55 g, 7.2 x 7.2 x 3.8 cm aggregate of white-akbar previously morcellated soft tissue. Trim Line Worker sections are submitted in formalin in 15 cassettes. SERVANDO Schmidt(ASCP)CM 11/29/2024 8:38 AM 12/01/2024 9:36 AM CDT LABORATORY Microscopic Description Microscopic performed 12/01/2024 9:36 AM CDT LABORATORY Performing Labs The technical component of this testing was completed at [facility]. Stain controls for all stains resulted within this report have been reviewed and show appropriate reactivity. 12/01/2024 9:36 AM CDT LABORATORY Case Images 12/01/2024 9:36 AM CDT LABORATORY Tissue PROSTATE / Unknown 5:27 PM CDT 11/29/2024 6:54 AM CDT us Geronimo Carter MD LAB - KHALIF SANCHEZ Final Result LABORATORY [facility] [address] floor, [address] [place] [address], [facility] [phone] * Stone analysis (11/28/2024 3:42 PM CDT) Stone Mass 1635 mg 12/01/2024 10:30 PM CDT [facility] Calculi Description See Note 12/01/2024 10:30 PM CDT [facility] Comment: Specimen consists of numerous brown and akbar calculi fragments. Specimen was not received in the preferred dry state. The presence of liquid, blood, gel, or adhesive often delays analysis. The total weight is 1635 mg. Stone Composition See Note 025 10:30 PM CDT [facility] Comment: Calculi composed primarily of: 40% calcium [...] composition determined by FTIR analysis. Performed By: [employer] [address] [place] [id number] Net Mvc Developer: Sorin Amin MD, PhD CLIA Number: [id number] Calculus/Stone URINARY BLADDER STRUCTURE / Unknown Non-blood Collection / Unknown 11/28/2024 3:42 PM CDT 11/28/2024 6:00 PM CDT us Geronimo Carter MD LAB - BODY FLUIDS ORDERABLES Final Result Performing Organization Address City/[facility] Co de Phone Number [facility] [employer] [address] [place] [address] [phone] * (ABNORMAL) Hemoglobin (11/28/2024 10:39 AM CDT) Hemoglobin 8.2(L) 13.3 - 17.7 g/dL 11/28/2024 10:48 AM CDT LABORATORY MCV 88 78 - 100 fL 11/28/2024 10:48 AM CDT LABORATORY Blood STRUCTURE OF RIGHT UPPER LIMB / Unknown Venipuncture / Unknown 11/28/2024 10:39 AM CDT 11/28/2024 10:44 AM CDT Jammie Cerna PA-C LAB - BLOOD ORDERABLES Final Result LABORATORY [facility] [address], [address] [place] [address], [facility] [phone] * (ABNORMAL) Hemoglobin (11/27/2024 12:57 PM CDT) Pathologist [facility] Hemoglobin 8.5(L) 13.3 - 17.7 g/dL 11/27/2024 1:11 PM CDT LABORATORY MCV 89 78 - 100 fL 11/27/2024 1:11 PM CDT LABORATORY Blood STRUCTURE OF RIGHT UPPER LIMB / Unknown Venipuncture / Unknown 11/27/2024 12:57 PM CDT 11/27/2024 1:09 PM CDT Edwina Sanabria PA-C LAB - BLOOD ORDERABLES Final Res ult Performing Organization Address [facility]/ZIP Co de Phone Number LABORATORY [facility] [address], [address] [place] [address], [facility] [phone] * (ABNORMAL) CBC with platelets (11/27/2024 7:44 AM CDT) [facility] WBC Count 4.2 4.0 - 11.0 10e3/uL [...] - BLOOD ORDERABLES Final Res ult LABORATORY [facility] [address], [address] [place] [address], [facility] [phone] * CONDITIONAL Transfuse red blood cells (unit) 1; No special requirements (11/26/2024 1:02 PM CDT) Geronimo Carter MD BLOOD TRANSFUSION ORDERABLES Final Result * CONDITIONAL Prepare red blood cells (unit) (11/26/2024 10:19 AM CDT) Blood Component Type Red Blood Cells BLOOD BANK Product Code [id number] BLOO D BANK Unit Status Transfused BLOO D BANK Unit Number [id number] B LOOD BANK CROSSMATCH Compatible BLOOD BANK CODING SYSTEM [id number] BLO OD BANK ISSUE DATE AND TIME 11/26/2024 10:59:00 AM CDT BLOOD BANK UNIT ABO/RH O+ BLOOD BANK UNIT TYPE ISBT 5100 BL OOD BANK 11/26/2024 10:1 9 AM CDT Haley Tran MD BLOOD BANK PRODUCT ORDERABLES Fi nal Result BLOOD BANK [address] [place] [address], [facility] * Adult Type and Screen (11/26/2024 7:04 [...] BLOOD BANK TEST ORDER Susan l Result BLOOD BANK [address] [place] [address], [facility] * (ABNORMAL) Comprehensive metabolic panel (11/26/2024 7:04 AM CDT) Sodium 135 135 - 145 mmol/L 11/26/2024 7:36 AM [facility] Potassium 4.0 3.4 - 5.3 mmol/L 11/26/2024 7:36 AM [facility] Carbon Dioxide (CO2) 23 22 - 29 mmol/L 11/26/2024 7:36 AM [facility] Anion Gap 8 7 - 15 mmol/L 11/26/2024 7:36 AM [facility] Urea Nitrogen 17.7 8.0 - 23.0 mg/dL 11/26/2024 7:36 AM [facility] Creatinine 0.99 0.67 - 1.17 mg/dL 11/26/2024 7:36 AM [facility] GFR Estimate 82 >60 mL/min/1.7 3m2 11/26/2024 7:36 AM [facility] Comment:eGFR calculated 2020 CKD-EPI equation. Calcium 8.4(L) 8.8 - 10.4 mg/dL 11/26/2024 7:36 AM T LABORATORY Chloride 104 98 - 107 mmol/L 11/26/2024 7:36 AM [facility] Glucose 109(H) 70 - 99 mg/dL 11/26/2024 7:36 AM T LABORATORY Alkaline Phosphatase 37(L) 40 - 150 [...] [facility] [address], [address] [place] [address], [facility] [phone] * (ABNORMAL) CBC with platelets (11/26/2024 7:04 [...] - BLOOD ORDERABLES Final Res ult LABORATORY [facility] [address], [address] [place] [address], [place] [phone] * (ABNORMAL) Hemoglobin (11/25/2024 7:18 PM CDT) Hemoglobin 8.6(L) 13.3 - 17.7 g/dL 11/25/2024 8:05 PM CDT LABORATORY MCV 95 78 - 100 fL 11/25/2024 8:05 PM CDT LABORATORY Blood STRUCTURE OF LEFT HAND / Unknown Venipuncture / Unknown 11/25/2024 7:18 PM CDT 11/25/2024 8:03 PM CDT Haley Tran MD LAB - BLOOD ORDERABLES Final Res ult LABORATORY [facility] [address] floor, [address] [place] [address], [place] [phone] * (ABNORMAL) Hemoglobin (11/25/2024 10:02 AM CDT) Hemoglobin 8.6(L) 13.3 - 17.7 g/dL 11/25/2024 10:21 AM CDT LABORATORY MCV 94 78 - 100 fL 11/25/2024 10:21 AM CDT LABORATORY Blood STRUCTURE OF RIGHT HAND / Unknown Venipuncture / Unknown 11/25/2024 10:02 AM CDT 11/25/2024 10:18 AM CDT us Franky Turner MD LAB - BLOOD ORDERABLES Fi nal Result LABORATORY [facility] [address], [address] [place] [address], [place] [phone] * (ABNORMAL) CBC with platelets (11/25/2024 6:50 AM CDT) [facility] WBC Count 10.3 4.0 - 11.0 10e3/uL [...] - BLOOD ORDERABLES Final Res ult LABORATORY [facility] [address], [address] [place] [address], [facility] [phone] * (ABNORMAL) Hemoglobin (11/25/2024 2:08 AM CDT) Hemoglobin 8.8(L) 13.3 - 17.7 g/dL 11/25/2024 2:15 AM CDT LABORATORY MCV 92 78 - 100 fL 11/25/2024 2:15 AM CDT LABORATORY Blood STRUCTURE OF RIGHT WRIST REGION / Unknown Venipuncture / Unknown 11/25/2024 2:08 AM CDT 11/25/2024 2:12 AM CDT Franky Turner MD LAB - BLOOD ORDERABLES Fi nal Result [facility] [address], [address] [place] [address], [facility] [phone] * (ABNORMAL) Hemoglobin (11/24/2024 10:21 PM CDT) Hemoglobin 10.5(L) 13.3 - 17.7 g/dL 11/24/2024 10:34 PM CDT LABORATORY MCV 96 78 - 100 fL 11/24/2024 10:34 PM CDT LABORATORY Blood STRUCTURE OF RIGHT HAND / Unknown Venipuncture / Unknown 11/24/2024 10:21 PM CDT 11/24/2024 10:31 PM CDT Franky Turner MD LAB - BLOOD ORDERABLES Fi nal Result [facility] [address], [address] [place] [address], [place] [phone] * CT Abdomen Pelvis w/o Contrast (11/24/2024 [...] EXAM: CT ABDOMEN PELVIS W/O CONTRAST LOCATION: [facility] DATE: 11/24/2024 INDICATION: kidney stones, hematuria, confirm [...] EXAM: CT ABDOMEN PELVIS W/O CONTRAST LOCATION: [facility] DATE: 11/24/2024 INDICATION: kidney stones, hematuria, confirm [...] possible previous contrast administration. Franky Turner MD IMG CT ORDERABLES Final R esult * Adult [...] ORDER Fi nal Result BLOOD BANK [address] [address], [facility] * Partial thromboplastin time (11/24/2024 6:51 PM [...] [address], [address] [place] [address], [facility] [phone] * (ABNORMAL) CBC with platelets (11/24/2024 6:51 PM CDT) Pathologist [facility] WBC Count 12.6(H) 4.0 - 11.0 10e3/uL [...] - BLOOD ORDERABLES Final R esult LABORATORY [facility] [address], [address] [place] [address], [place] [phone] * Fibrinogen activity (11/24/2024 6:51 PM CDT) Fibrinogen Activity 370 170 - 510 mg/dL 11/24/2024 7:15 PM CDT LABORATORY Blood STRUCTURE OF RIGHT HAND / Unknown Venipuncture / Unknown 11/24/2024 6:51 PM CDT 11/24/2024 6:55 PM CDT us Zeinab Barcenas MD LAB - BLOOD ORDERABLES Final R esult Performing Organization Address City/[facility]/ZIP Co de Phone Number LABORATORY [facility] [address], [address] [place] [address], [place] [phone] * (ABNORMAL) INR (11/24/2024 6:51 PM CDT) INR 1.19(H) 0.85 - 1.15 11/24/2024 7:15 PM CDT LABORATORY PT 14.9(H) 11.8 - 14.8 Seconds 11/24/2024 7:15 PM CDT LABORATORY Blood STRUCTURE OF RIGHT HAND / Unknown Venipuncture / Unknown 11/24/2024 6:51 PM CDT 11/24/2024 6:55 PM CDT us Zeinab Barcenas MD LAB - BLOOD ORDERABLES Final R esult LABORATORY [facility] [address] floor, [address] [place] [address], [place] [phone] * (ABNORMAL) Basic metabolic panel (11/24/2024 6:51 PM CDT) Sodium 138 135 - 145 mmol/L 11/24/2024 [...] [address], [address] [place] [address], [place] [phone] * XR Surgery AMALIA L/T 5 Min Fluoro w Stills (11/24/2024 5:59 PM CDT) Narrative [facility] - 11/24/2024 6:00 PM CDT This exam was marked as non-reportable because it will not be read by a radiologist or a [place] non-radiologist provider. Haley Tran MD IMG DIAGNOSTIC IMAGING ORDERABLE S Final Result [facility] * [place] Aerobic Bacterial Culture Routine (11/24/2024 5:15 PM CDT) Culture No Growth 11/29/2024 6:58 AM CDT [facility] LABORAT[facility] [place] RIGHT KIDNEY STRUCTURE / Unknown Non-blood Collection / Unknown 11/24/2024 5:15 PM CDT 11/24/2024 5:55 PM CDT Franky Turner MD LAB - MICRO GENERAL ORDER DENA Final Result Performing Organization Address City/[facility] Co de Phone Number [facility] LABORATORY [facility] Inf. Diseases Diag. Lab [address] [facility], [address] * Anaerobic Bacterial Culture Routine (11/24/2024 5:15 PM CDT) Culture No anaerobic organisms isolated ALFRED 12/01/2024 8:03 AM CDT [facility] LABORAT[facility] [place] RIGHT KIDNEY STRUCTURE / Unknown Non-blood Collection / Unknown 11/24/2024 5:15 PM CDT 11/24/2024 5:56 PM CDT Frakny Turner MD LAB - MICRO GENERAL ORDER DENA Final Result Performing Organization Address [facility] de Phone Number [facility] LABORATORY [facility] Inf. Diseases Diag. Lab [address] [facility], Room [place] [id number] * (ABNORMAL) PSA tumor marker (11/24/2024 6:55 AM CDT) PSA Tumor Marker 11.00(H) 0.00 - 6.50 ng/mL 11/24/2024 2:05 PM CDT [facility] LABORATORY Blood STRUCTURE OF RIGHT HAND / Unknown Venipuncture / Unknown 11/24/2024 6:55 AM CDT 11/24/2024 7:09 AM CDT Narrative LABORATORY - 11/24/2024 2:05 PM CDT This [...] ng/mL. (1) 1. Jason LJ, Rafa Z, Miguel DW, et al. Do ultrasensitive prostate specific antigen measurements have a role in predicting long-term biochemical recurrence-free survival in men after radical prostatectomy? J Urol. 2016;195(2):330-336. doi:10.1016/j.juro.2015.08.080 us Debbie Villalta PA-C LAB - BLOOD ORDERABLES F inal Result LABORATORY [facility] Lab [address] [facility], [address] [place] [address], [facility] * Procalcitonin (11/24/2024 6:55 AM CDT) Procalcitonin 0.05 <0.50 ng/mL 11/24/2024 7:48 AM [...] See Procalcitonin Guidance document for more details. [email or web address] Factors that may affect PCT levels (not [...] [facility] [address], [address] [place] [address], [facility] [phone] * (ABNORMAL) CBC with platelets (11/24/2024 6:55 AM CDT) [facility] WBC Count 7.8 4.0 - 11.0 [...] [address], [address] [place] [address], [facility] [phone] * (ABNORMAL) Basic metabolic panel (11/24/2024 6:55 AM CDT) [facility] Sodium 136 135 - 145 mmol/L 11/24/2024 [...] 11/24/2024 7:48 AM CDT LABORATORY Comment:eGFR calculated 2020 CKD-EPI equation. Calcium 9.0 8.8 - [...] [facility] [address], [address] [place] [address], [facility] [phone] * (ABNORMAL) UA with Microscopic reflex to Culture (11/24/2024 5:10 AM CDT) Color Urine Straw Colorless, Straw, Light Yellow, Yellow 11/24/2024 5:25 AM CDT LABORATORY Appearance Urine Clear Clear 11/25/19 5:25 AM CDT LABORATORY Glucose Urine Negative Negative mg/dL 11/24/2024 5:25 AM CDT LABORATORY Bilirubin Urine Negative Negative 5:25 AM CDT LABORATORY Ketones Urine Negative Negative mg/dL 11/24/2024 5:25 AM CDT LABORATORY Specific [place] Urine 1.016 1.003 - 1.035 11/24/2024 5:25 AM CDT LABORATORY Blood Urine Small(A) Negative 11/24/2024 5:25 AM CDT LABORATORY pH Urine 5.5 5.0 - 7.0 11/24/2024 5:25 AM CDT LABORATORY Protein Albumin Urine Negative Negative mg/dL 11/24/2024 5:25 AM CDT LABORATORY Urobilinogen Urine Normal Normal mg/dL 11/24/2024 5:25 AM CDT [facility] LABORATORY Nitrite Urine Negative Negative 11/24/2024 5:25 AM CDT LABORATORY Leukocyte Esterase Urine Negative Negative 11/24/2024 5:25 AM CDT LABORATORY RBC Urine 5(H) <=2 /HPF 11/24/2024 5:25 AM CDT LABORATORY WBC Urine <1 <=5 /HPF 11/24/2024 5:25 AM CDT SH LABORATORY Urine URINE SPECIMEN OBTAINED BY CLEAN CATCH PROCEDURE / Unknown Non-blood Collection / Unknown 11/24/2024 5:10 AM CDT 11/24/2024 5:16 AM CDT Narrative SH LABORATORY - 11/24/2024 5:25 AM CDT Urine Culture not indicated us Get Figueroa DO LAB - URINE ORDERABLES Final Re sult LABORATORY [facility] [address], [address] [place] [address], [facility] [phone] documented in this encounter Visit Diagnoses Diagnosis Kidney stone- Primary Calculus of kidney Kidney stone Calculus of kidney Ureteropelvic junction calculus Calculus of kidney documented in this encounter Admitting Diagnoses Diagnosis Kidney stone Calculus of kidney documented in this encounter Administered Medications Active Administered Medications - up to 3 most recent administrations Medication Order MAR Action Action Date Dose Rate Site opium-belladonna (B&O SUPPRETTES) 30-16.2 MG per suppository PRN, Starting on Wed11/24/24 at 1714, Intra-procedure $Given 11/24/2024 5:14 PM CDT 30 mg Inactive Administered Medications - up to 3 [...] $Given 11/26/2024 11:37 PM CDT 650 mg cefTRIAXone (ROCEPHIN) 1 g vial to attach [...] Bag 11/26/2024 6:42 PM CDT 1 g finasteride (PROSCAR) tablet 5 mg 5 mg, Oral, DAILY, First dose on Wed11/26/24 at 0900, *Do not handle tablets if you are * $Given 11/29/2024 9:39 AM CDT 5 mg $Given 11/28/2024 10:03 AM CDT 5 mg $Given 11/27/2024 10:26 AM CDT 5 mg hyoscyamine (LEVSIN/SL) sublingual tablet 125 mcg 125 mcg, Sublingual, EVERY 4 HOURS PRN, cramping, Starting on Wed11/24/24 at 1836, Patients using antacids should take hyoscyamine before meals and the antacid after meals. $Given 11/25/2024 9:38 PM CDT 125 mcg $Given 11/24/2024 8:38 PM CDT 125 mcg naloxone (NARCAN) injection 0.2 mg 0.2 mg, [...] Starting on Wed11/25/24 at 0531, bladder spasms $Given 11/26/2024 7:45 PM CDT 1 suppository $Given 11/25/2024 7:52 PM CDT 1 suppository $Given 11/25/2024 8:35 AM CDT 1 suppository oxyCODONE (ROXICODONE) tablet 5 mg 5 mg, [...] 5:50 AM CDT 3 mLs sodium chloride 0.9% irrigation (bag) Irrigation, CONTINUOUS, [...] 1512 ($Given - Provider: Sultana Pimentel APRN MACHINE CLERICAL VERIFIER) cefTRIAXone (ROCEPHIN) 1 g vial to attach to NS 100 mL bag for ADULTS or NS 50 mL bag for PEDS Routine, 1 g, Intravenous, EVERY 24 HOURS, First dose on Wed11/24/24 at 1900, Lactated Ringer's solution is not compatible with ceftriaxone for injection, Indications: Urinary Tract Infection 1929 ($New Bag - Provider: Leoncio Chaudhry, RN) 1402 (Auto Hold - Provider: Orders Generic Provider - Reason: Transfer to a procedural area)1855 (Unhold - Provider: Orders Generic Provider)192 ($New Bag - Provider: Jammie Lara, LAMBERTO) finasteride (PROSCAR) tablet 5 mg 5 mg, Oral, DAILY, First dose on Wed11/26/24 at 0900, *Do not handle tablets if you are * 1026 ($Given - Provider: Leoncio Chaudhry, LAMBERTO) 1003 ($Given - Provider: Whit Escobar, LAMBERTO)1402 (Auto Hold - Provider: Orders Generic Provider - Reason: Transfer to a procedural area)185 (Unhold - Provider: Orders Generic Provider) 0939 ($Given - Provider: Viky Jolly, LAMBERTO) gentamicin (GARAMYCIN) infusion 80 mg (COMPLETED) Routine, [...] 1455 ($Given - Provider: Per De La Vega, LAMBERTO) sodium chloride (PF) 0.9% PF flush 3 mL 3 mL, Intracatheter, EVERY 8 HOURS SCHEDULED, First dose on Wed11/24/24 at 0600, to lock peripheral IV dormant line 1027 ($Given - Provider: Leoncio Chaudhry, LAMBERTO)1749 (Not Given - Provider: Leoncio Chaudhry, LAMBERTO - Reason: Patient/family refused) 0006 (Not Given - Provider: Ave Dudley RN - Reason: Other)1006 ($Given - Provider: Whit Escobar RN)1402 (Auto Hold - Provider: Orders Generic Provider - Reason: Transfer to a procedural area)1600 (Automatically Held - Provider: Orders Generic Provider)1855 (Unhold - Provider: Orders Generic Provider)1926 ($Given - Provider: Jammie Lara, LAMBERTO)2320 ($Given - Provider: Ofelia Valente RN) 0939 ($Given - Provider: Viky Jolly RN)1600 (Canceled Entry - Provider: Orders Generic Provider [...] or open. 2045 ($Given - Provider: Ave Dudley, LAMBERTO) 1402 (Auto Hold - Provider: Orders Generic Provider - Reason: Transfer to a procedural area)1855 (Unhold - Provider: Orders Generic Provider)192 ($Given - Provider: Jammie Lara, LAMBERTO) Continuous Medication Order 11/27/2024 11/28/2024 11/29/2024 lactated ringers infusion (CANCELED) at 10 mL/hr, Intravenous, CONTINUOUS, IF patient NOT on dialysis., Pre-procedure, Starting on Wed11/28/24 at 1430, Until Wed11/28/24 at 1747 1507 ($New Bag - Provider: Sultana Pimentel APRN MACHINE CLERICAL VERIFIER - Comment: started in preop)1730 ($New Bag - Provider: Chauntel K Loren, MEDICAL SCIENTIFIC LIAISON MACHINE CLERICAL VERIFIER) sodium chloride 0.9% irrigation (bag) Irrigation, CONTINUOUS, [...] mg/kg/day not to exceed 4 grams/day. 0339 (See Alternative - Provider: Jammie Lara RN) 140 (Auto Hold - Provider: Orders Generic Provider - Reason: Transfer to a procedural area)185 (Unhold - Provider: Orders Generic Provider)194 (See Alternative - Provider: Jammie Lara RN) [...] 4 grams/day. 0339 ($Given - Provider: Jammie Lara RN) 140 (Auto Hold - Provider: Orders Generic Provider - Reason: Transfer to a procedural area)185 (Unhold - Provider: Orders Generic Provider)194 ($Given - Provider: Jammie Lara RN) acetaminophen (TYLENOL) tablet 650 mg 650 [...] area)1855 (Unhold - Provider: Orders Generic Provider) HYDROmorphone [...] area)1855 (Unhold - Provider: Orders Generic Provider) HYDROmorphone [...] area)1855 (Unhold - Provider: Orders Generic Provider) hyoscyamine (LEVSIN/SL) sublingual tablet 125 mcg 125 mcg, Sublingual, EVERY 4 HOURS PRN, cramping, Starting on Wed11/24/24 at 1836, Patients using antacids should take hyoscyamine before meals and the antacid after meals. 1402 (Auto Hold - Provider: Orders Generic Provider - Reason: Transfer to a procedural area)1855 (Unhold - Provider: Orders Generic Provider) lidocaine [...] area)1855 (Unhold - Provider: Orders Generic Provider) lidocaine [...] area)1855 (Unhold - Provider: Orders Generic Provider) lidocaine [...] then swallow with saliva. Liquid not required. 1402 (Auto Hold - Provider: Orders Generic Provider - Reason: Transfer to a procedural area)185 (Unhold - Provider: Orders Generic Provider) ondansetron (ZOFRAN) injection 4 mg(Linked Group 4) 4 mg, Intravenous, EVERY 6 HOURS PRN, nausea/vomiting - 1st line, Administer over 2-5 Minutes, Starting on Wed11/24/24 at 0221, Give IF patient unable to tolerate oral medication. This is Step 1 of nausea and vomiting management. If nausea not resolved in 15 minutes, go to Step 2 prochlorperazine (COMPAZINE). 1402 (Auto Hold - Provider: Orders Generic Provider - Reason: Transfer to a procedural area)185 (Unhold - Provider: Orders Generic Provider) opium-belladonna (B&O SUPPRETTES) 30-16.2 MG per suppository 1 suppository 1 suppository (30 mg), Rectal, EVERY 8 HOURS PRN, Starting on Wed11/25/24 at 0531, bladder spasms 1402 (Auto Hold - Provider: Orders Generic Provider - Reason: Transfer to a procedural area)185 (Unhold - Provider: Orders Generic Provider) opium-belladonna [...] area)1855 (Unhold - Provider: Orders Generic Provider) oxyCODONE IR (ROXICODONE) half-tab 2.5 mg 2.5 mg, Oral, EVERY 4 HOURS PRN, moderate pain, IF pain not managed with non-pharmacological and non-opioid interventions, Starting on Wed11/24/24 at 0221, May use concomitant with non-opioid analgesics. 1402 (Auto Hold - Provider: Orders Generic Provider - Reason: Transfer to a procedural area)185 (Unhold - Provider: Orders Generic Provider)194 ($Given - Provider: Jammie Lara RN) polyethylene [...] bowel prep regimen or bowel clean out. 140 (Auto Hold - Provider: Orders Generic Provider - Reason: Transfer to a procedural area)1854 (Unhold - Provider: Orders Generic Provider) prochlorperazine [...] area)1854 (Unhold - Provider: Orders Generic Provider) prochlorperazine [...] area)1854 (Unhold - Provider: Orders Generic Provider) sodium chloride (PF) 0.9% PF flush 3 mL 3 mL, Intracatheter, EVERY 1 MIN PRN, line flush, other, to ensure patency or to lock dormant line, Starting on Wed11/24/24 at 0218 140 (Auto Hold - Provider: Orders Generic Provider - Reason: Transfer to a procedural area)1854 (Unhold - Provider: Orders Generic Provider) sodium [...] stools. documented in this encounter Care Teams Product Introduction Manager Relationship Specialty Start Date End Date No Ref-Primary, Physician PCP - General 11/24/24 documented as of this encounter
--- OUTSIDE RECORDS SUMMARY | 2024-11-24 16:34 | XMS_ITS | Encounter Summary ---
Author Organization [facility] Address [address] [place] [id number] Care Team Providers Care Manager Field Investigations Name Role Phone No Ref-Primary, Physician Primary Care Provider Reason for Visit * Auth/Cert Specialty Diagnoses / Procedures Referred By Kelvin camacho Referred To Contact Med Surg Diagnoses Kidney stone Kidney stone Get Figueroa DO [address] [address] Phone: tel: fax: [facility] General Surgery [address] [phone] Phone: tel: fax: Referral ID Status Reason Start Date Expiration Date Visits Re quested Visits Authorized [id number] 1 1 Encounter Details Date Type Department Care Team (Late st Contact Info) Description 11/24/2024 4:34 PM CDT Anesthesia Event [facility] Per[facility]OP Services [address], [address] [place] [id number] Zeinab Barcenas MD [facility], [facility] [address] [id number] Anesthesia Record Procedure Summary Procedure Name Responsible Anesthesiologist Anesthesia Start Time Anesthesia Stop Time RIGHT KIDNEY WASHING, RIGHT URETERAL STENT INSERTION, RIGHT RETROGRADE PYELOGRAM, CYSTOSCOPY (Right: Urethra) Zeinab Barcenas MD 11/24/24 1634 11/24/24 1803 Events Date Time Event Comment 11/24/2024 1540 1634 An Start Anesthesia Star t is defined as when the anesthesia provider assumed care, began anesthesia prep, remained continuously present with the patient, and excludes all time for performing the pre-anesthesia evaluation. The Pre-Anesthesia Evaluation was completed before Anesthesia Start. 1634 Quick Note Preprocedure Vi tals Current as of 11/24/24 1540 BP: 148/92 Pulse: 81 Resp: 17 SpO2: 98 Temp: 36.6 C (97.8 F) Last edited 11/24/24 1455 by MP 1636 An Start Data 1636 AN REASSESS I attest that I have identified and re-evaluated the patient immediately before the induction of anesthesia and I am satisfied that the anesthetic plan is suitable for the patient's condition and procedure. The first vital signs recorded are pre-induction. Honorio Hannah APRN PICKING SUPERVISOR 1644 MD Present 1644 An Induction 1645 An LMA 1648 Anesthesia Ready for Procedu re 1656 AN INCISION 1721 MD Present 1723 LMA Removed 1726 Quick Note Meets PACU greenfield sfer criteria. 1727 Quick Note Surgeon exchang ing medrano for 3-way medrano. 1747 MD Present 1759 an stop data Exit OR 18 1803 An Stop Electronically signed by Honorio Hannah APRN CRNA on November 24, 2024 6:07 PM Meds Name Total dexamethasone (DECADRON) 4 mg/mL 4 mg fentaNYL 50 mcg/mL 50 mcg lidocaine 2% 100 mg ondansetron 2 mg/mL 4 mg propofol (DIPRIVAN) 10 mg/mL 140 mg phenylephrine (BRYAN-SYNEPHRINE) injection 800 mcg propofol drip mcg/kg/min 67.71 mg ceFAZolin Sodium (ANCEF) injection 2 g 2 g vasopressin 1 unit/mL 0.5 Units lactated ringers infusion 800 mL * Agents Name O2 N2O Air Exp Sevoflurane Exp Isoflurane Exp Desflurane O2 Delivery Device Ins Sevoflurane Ins Isoflurane Ins Desflurane O2 Auxiliary * Blood No blood administrations on file. Lines, Drains, and Airways Type Details Placement Removal Peripheral IV Anterior, Left; Uppe r forearm 11/24/24 0618 by 11/26/24 0847 by Pauline Goode, LAMBERTO Peripheral IV 11/24/24; 1458; 20 G ; Left; Lower forearm; Chlorhexidine; 1; Tolerated well 11/24/24 1458 by Lisbeth Hammond, LAMBERTO 11/29/24 1654 by Inpatient, Nurse Supraglottic Airway Placement Date: 11/24/24; Placement Time: 1645 (created via procedure documentation); Mask Ventilation: 1; LMA Size: 5; Airway Brand: I-Gel; Attempts: 1 11/24/24 1645 by Honorio Hannah APRN PICKING SUPERVISOR 11/24/24 1723 by Honorio Hannah APRN PICKING SUPERVISOR Urinary Drain 11/24/24; 1711; Urethral Catheter; No; Surgical procedure; 20 fr 11/24/24 1711 by Ezra Duarte RN 11/24/24 1729 by Ezra Duarte, RN Urinary Drain 11/24/24; 1734; Urethral Catheter; Yes; Surgical procedure; 22 fr 11/24/24 1734 by Ezra Duarte RN 11/28/24 1525 by Jocelyn John RN documented in this encounter Social History Tobacco Use Types Packs/Day Years Used Date Smoking Tobacco: Never Assessed Food Insecurity Answer Date Recorded Within the past 12 months, d id you worry that your food would run out before you got money to buy more? No 11/24/2024 Within the past 12 months, d id the food you bought just not last and you didn t have money to get more? No 11/24/2024 Housing Stability Answer Date Recorded Do you have housing? (Housin g is defined as stable permanent housing [...] on file documented as of this encounter OR Notes * Anesthesia Postprocedure Evaluation - Sydnie Trammell - 11/25/2024 6:39 AM CDT Patient: David Campbell Procedure: Procedure(s): RIGHT KIDNEY WASHING, RIGHT URETERAL STENT INSERTION, RIGHT RETROGRADE PYELOGRAM, CYSTOSCOPY Anesthesia Type: General Note: Disposition: Inpatient Postop Pain Control: Uneventful Sign Out: Well controlled pain PONV: No Neuro/Psych: Uneventful Sign Out: Acceptable/Baseline neuro status Airway/Respiratory: Uneventful Sign Out: Acceptable/Baseline resp. status CV/Hemodynamics: Uneventful Sign Out: Acceptable CV status Other NRE: DID A NON-ROUTINE EVENT OCCUR? No Event details/Postop Comments: Prolonged bleeding. CT and hemoglobin remained stable Last vitals: Vitals Value Taken Time BP 121/74 11/24/24 20:45 Temp 36.3 ??C (97.4 ??F) 11/24/24 20:45 Pulse 95 11/24/24 20:58 Resp 21 11/24/24 20:58 SpO2 95 % 11/24/24 20:59 Vitals shown include unfiled device data. Electronically Signed By: Sydnie Trammell November 25, 2024 6:39 AM * Anesthesia Procedure Notes - Honorio Hannah APRN CRNA - 11/24/2024 4:45 PM CDTAssociated Order(s): Airway Airway Patient location: [facility] - Operating Room. Procedure Start/Stop Times: 11/24/2024 4:45 PM and 11/24/2024 4:45 PM Staff - PICKING SUPERVISOR: Honorio Hannah APRN PICKING SUPERVISOR Performed By: PICKING SUPERVISOR Consent for Airway Urgency: elective Indications and Patient Condition Indications for airway management: luisa-procedural Induction type:intravenous Mask difficulty assessment: 1 - vent by mask Final Airway Details Final airway type: supraglottic airway Supraglottic Airway Details Type: LMA Brand: I-Gel LMA size: 5 Post intubation assessment Placement verified by: capnometry, equal breath sounds and chest rise Number of attempts at approach: 1 Number of other approaches attempted: 0 Secured with: tape Ease of procedure: easy Dentition: Intact and Unchanged Medication(s) Administered Medication Administration Time: 11/24/2024 4:45 PM * Anesthesia Preprocedure Evaluation - Zeinab Barcenas MD - 11/24/2024 3:40 PM CDT Anesthesia Pre-Procedure Evaluation Patient: David Campbell : 1955 Procedure : Procedure(s): Combined Cystoscopy, Insert Stent Ureter(s) Past Medical History: Diagnosis Date Kidney stone No past surgical history on file. Allergies Allergen Reactions Shellfish-Derived Products Nausea and Vomiting Social History Tobacco Use Smoking status: Not on file Smokeless tobacco: Not on file Substance Use Topics Alcohol use: Not on file Wt Readings from Last 1 Encounters: 11/24/24 69.8 kg (153 lb 14.1 oz) Anesthesia Evaluation Pt has had prior anesthetic. No history of anesthetic complications ROS/MED HX ENT/Pulmonary: (-) sleep apnea Neurologic: Cardiovascular: (-) hypertension and dyslipidemia METS/Exercise Tolerance: Hematologic: Musculoskeletal: GI/Hepatic: (-) GERD Renal/Genitourinary: (+) renal disease (pyelonephritis), type: ARF, Nephrolithiasis , Endo: Psychiatric/Substance Use: Comment: 1-2 EtOH drinks/day Infectious Disease: Malignancy: Other: Physical Exam Airway Mallampati: II TM distance: >3 FB Cardiovascular Rhythm: regular Rate: normal rate Dental (+) Minor Abnormalities - some fillings, tiny chips Pulmonary Breath sounds clear to auscultation Neurological He appears awake, alert and oriented x3. Other Findings OUTSIDE LABS: CBC: Lab Results Component Value Date WBC 7.8 11/24/2024 HGB 13.2 (L) 11/24/2024 HCT 39.6 (L) 11/24/2024 PLT 214 11/24/2024 BMP: Lab Results Component Value Date NA 136 11/24/2024 POTASSIUM 4.0 11/24/2024 CHLORIDE 106 11/24/2024 CO2 18 (L) 11/24/2024 BUN 15.9 11/24/2024 CR 0.97 11/24/2024 GLC 101 (H) 11/24/2024 COAGS: No results found for: PTT, INR, FIBR POC: No results found for: BGM, HCG, HCGS HEPATIC: No results found for: ALBUMIN, PROTTOTAL, ALT, AST, GGT, ALKPHOS, BILITOTAL,BILIDIRECT, HERI OTHER: Lab Results Component Value Date ALEKS 9.0 11/24/2024 Anesthesia Plan ASA Status: 3 Anesthesia Type: General. Airway: supraglottic airway. Induction: intravenous. Techniques and Equipment: - Airway: Planned airway equipment includes supraglottic airway. - Monitoring Plan: standard ASA monitoring Consents Anesthesia Plan(s) and associated risks, benefits, and realistic alternatives discussed. Questions answered and patient/ambulatory services representative(s) expressed understanding. - Discussed: PICKING SUPERVISOR - Discussed with: Patient Postoperative Care Comments: Zeinab Barcenas MD I have reviewed the pertinent notes and labs in the chart from the past 30 days and (re)examined the patient. Any updates or changes from those notes are reflected in this note. Clinically Significant Risk Factors Present on Admission documented in this encounter Miscellaneous Notes * Anesthesia Care Transfer Note - Honorio Hannah APRN PICKING SUPERVISOR - 11/24/2024 6:03 PM CDT Patient: David Campbell Procedure: Procedure(s): RIGHT KIDNEY WASHING, RIGHT URETERAL STENT INSERTION, RIGHT RETROGRADE PYELOGRAM, CYSTOSCOPY Diagnosis: Ureteropelvic junction calculus [N20.1] Diagnosis Additional Information: No value filed. Anesthesia Type: General Note: Oropharynx: oropharynx clear of all foreign objects and spontaneously breathing Level of Consciousness: awake Oxygen Supplementation: face mask Level of Supplemental Oxygen (L/min / FiO2): 6 Independent Airway: airway patency satisfactory and stable Dentition: dentition unchanged Vital Signs Stable: post-procedure vital signs reviewed and stable Report to RN Given: handoff report given Patient transferred to: PACU Comments: At end of procedure, spontaneous respirations, adequate tidal volumes, followed commands to voice, LMA removed atraumatically, airway patent after LMA removal. Oxygen via facemask at 6 liters per minute was subsequently removed with oxygen saturations >94% on room air. Medrano tubing andbag noted to have copious red blood drainage, PICKING SUPERVISOR requested surgeon be paged back to OR 18 to address. From 1725 to 1758, surgeon returned to OR 18, exchanged medrano for 3-way continuous irrigation foleysystem and hand-irrigated the system/medrano. STAT labs placed for draw on PACU arrival. SpO2, NiBP, and EKG monitors and alarms on and functioning, report on patient's clinical status given to DRILL PUNCH OPERATOR, RN questions answered. Handoff Report: Identifed the Patient, Identified the Reponsible Provider, Reviewed the pertinent medical history, Discussed the surgical course, Reviewed Intra-OP anesthesia mangement and issues during anesthesia, Set expectations for post-procedure period and Allowed opportunity for questions andacknowledgement of understanding Vitals: Vitals Value Taken Time BP Temp Pulse 93 11/24/24 18:01 Resp 14 11/24/24 18:01 SpO2 97 % 11/24/24 18:01 Vitals shown include unfiled device data. Electronically Signed By: Honorio Hannah APRN CRNA November 24, 2024 6:03 PM documented in this encounter Plan of Treatment Not on file documented as of this encounter Procedures Procedure Name Priority Date/Time Associated Diagnosis Comments ANE AIRWAY SUPRAGLOTTIC PERFORMABLE Routine 11/24/2024 4:45 PM CDT documented in this encounter Results * ANE AIRWAY SUPRAGLOTTIC PERFORMABLE (11/24/2024 4:45 PM CDT) Narrative Honorio Hannah APRN CRNA - 11/24/2024 4:45 PM CDT Honorio Hannah APRN CRNA 11/24/2024 4:57 PM Airway Patient location: [facility] - Operating Room. Procedure Start/Stop Times: 11/24/2024 4:45 PM and 11/24/2024 4:45 PM Staff - PICKING SUPERVISOR: Honorio Hannah APRN PICKING SUPERVISOR Performed By: TASHA Consent for Airway Urgency: elective Indications and Patient Condition Indications for airway management: luisa-procedural Induction type:intravenous Mask difficulty assessment: 1 - vent by mask Final Airway Details Final airway type: supraglottic airway Supraglottic Airway Details Type: LMA Brand: I-Gel LMA size: 5 Post intubation assessment Placement verified by: capnometry, equal breath sounds and chest rise Number of attempts at approach: 1 Number of other approaches attempted: 0 Secured with: tape Ease of procedure: easy Dentition: Intact and Unchanged Medication(s) Administered Medication Administration Time: 11/24/2024 4:45 PM Zeinab Barcenas MD [place] ANESTHESIA Final Result documented in this encounter Visit Diagnoses Not on filedocumented in this encounter Administered Medications Inactive Administered Medications - up to 3 most recent administrations Medication Order MAR Action Action Date Dose Rate Site ceFAZolin Sodium (ANCEF) injection 2 g Routine, 2 g, Intravenous, SEE ADMIN INSTRUCTIONS, Starting on Wed11/24/24 at 1436, Intra-Op Dose. Give every 4 hours while patient in surgery, starting 4 hours after pre-op dose. DO NOT GIVE intra-op dose if CrCl less than 10 mL/min (on dialysis). If CrCl less than 50 mL/min, double the time interval between doses., Indications: Perioperative Pharmacoprophylaxis, Pre-procedureIndications:Perioperat gary Pharmacoprophylaxis $Given 11/24/2024 4:34 PM CDT 2 g dexAMETHasone (DECADRON) injection Intravenous, PRN, Administer over 1 Minutes, Starting on Wed11/24/24 at 1658, Anesthesia Intra-op $Given 11/24/2024 4:58 PM CDT 4 mg fentaNYL (PF) (SUBLIMAZE) injection Intravenous, PRN, Administer over 3-5 Minutes, Starting on Wed11/24/24 at 1640, Anesthesia Intra-op $Given 11/24/2024 5:14 PM CDT 25 mcg $Given 11/24/2024 4:40 PM CDT 25 mcg lactated ringers infusion at 100 mL/hr, Intravenous, CONTINUOUS, Pre-procedure, Starting on Wed11/24/24 at 1500, Until Wed11/24/24 at 1759 Restarted 11/24/2024 5:03 PM CDT $New Bag 11/24/2024 3:00 PM CDT 100 mL/hr lidocaine 2% injection (MDV) Intravenous, PRN, Starting on Wed11/24/24 at 1644, Anesthesia Intra-op $Given 11/24/2024 4:44 PM CDT 100 mg ondansetron (ZOFRAN) injection Intravenous, PRN, Administer over 2-5 Minutes, Starting on Wed11/24/24 at 1715, Anesthesia Intra-op $Given 11/24/2024 5:15 PM CDT 4 mg phenylephrine (BRYAN-SYNEPHRINE) injection Intravenous, CONTINUOUS PRN, Starting on Wed11/24/24 at 1650, Anesthesia Intra-op $Bolus 11/24/2024 5:19 PM CDT 100 mcg $Bolus 11/24/2024 5:09 PM CDT 100 mcg $Bolus 11/24/2024 4:59 PM CDT 150 mcg propofol (DIPRIVAN) infusion Intravenous, CONTINUOUS PRN, Starting on Wed11/24/24 at 1648, Anesthesia Intra-op Rate/Dose Change 11/24/2024 4:53 PM CDT 30 mcg/kg/min 12.564 mL/hr $New Bag 11/24/2024 4:48 PM CDT 50 mcg/kg/min 20.94 mL/h r propofol (DIPRIVAN) injection 10 mg/mL vial Intravenous, PRN, Starting on Wed11/24/24 at 1644, Anesthesia Intra-op $Given 11/24/2024 4:44 PM CDT 140 mg vasopressin 1 unit/mL syringe Intravenous, PRN, Starting on Wed11/24/24 at 1700, Anesthesia Intra-op $Given 11/24/2024 5:00 PM CDT 0.5 Units documented in this encounter Care Teams Manager Field Investigations Relationship Specialty Start Date End Date No Ref-Primary, Physician PCP - General 11/24/24 documented as of this encounter
--- OUTSIDE RECORDS SUMMARY | 2024-11-28 15:00 | XMS_ITS | Encounter Summary ---
Author Organization [facility] Address [address] [place] [address] Care Team Providers Care Cheese Maker Name Role Phone No Ref-Primary, Physician Primary Care Provider Reason for Visit * Auth/Cert Specialty Diagnoses / Procedures Referred By Kelvin camacho Referred To Contact Med Surg Diagnoses Kidney stone Kidney stone Get Figueroa DO [address] [address] Phone: tel: fax: [facility] General Surgery [address] [facility] [place] [address] Phone: tel: fax: Referral ID Status Reason Start Date Expiration Date Visits Re quested Visits Authorized [id number] 1 1 Encounter Details Date Type Department Care Team (Late st Contact Info) Description 11/28/2024 3:00 PM CDT - 11/28/2024 5:20 PM CDT Surgery [facility] PeriOP Services [address] [place] [id number] Geronimo Carter MD [facility] [address] [id number] Cystoscopy Surgery Details Date/Time Status Location OR Service Patient Class Case Cl ass Case Type Trauma Case? 11/28/2024 3:00 PM Posted OR OR M 30 Urology Inpatient Elective Panel 1 Procedure LRB Anes Op Region Wound Class Comments Cystoscopy N/A General Urethra II-Clean Contaminat ed WITH HOLMIUM LASER ENUCLEATI ON OF THE PROSTATE N/A General Urethra II-Clean Contaminated Surgeon Surgeon Role Service Panel Geronimo Carter MD Primary Urology 1 Special Needs Scheduled(23JUL)Shyam(Tejal)Holmium tech only(confirmation# [id number])90 MIN REQ CURRENT INPATIENT documented in this encounter Social History Tobacco [...] in an abandoned building, in an overnight intermediate, or couch-surfing.) Yes 11/24/2024 Are you worried [...] Sign Reading Time Taken Comments Blood Pressure 146/81 11/28/2024 2:09 PM CDT Pulse 72 11/28/2024 2:09 PM CDT Temperature 36 C (96.8 F) 11/28/2024 2:09 PM CDT Respiratory Rate 16 11/28/2024 2:09 PM CDT Oxygen Saturation 97% 11/28/2024 2:09 PM CDT Inhaled Oxygen Concentration - - Weight 69.8 kg (153 lb 14.1 oz) 11/24/2024 5:21 AM CDT Height 177.8 cm (5' 10) 11/24/2024 5:21 AM CDT Body Mass Index 22.08 11/24/2024 5:21 AM CDT documented in this encounter Discharge Summaries * Adriana Chan MD - 11/29/2024 1:38 PM CDT Images from the original note were not included. [facility] Discharge Summary Hospitalist Date of Admission: 11/24/2024 [...] CONSULT Time Spent on this Encounter I, dAriana Chan MD, personally saw the patient today [...] NOT able to reach your Surgeon Team, [facility] an Urgent Care clinic. Do NOT [...] physical activity for 2 weeks. Follow Up ([facility]) Follow up with [facility] in the coming weeks for definitive stone treatment. Our office will call you to schedule an appointment. If you do not hear from us within 3 business days of hospitaldischarge, please call [phone] to schedule an appointment. [facility] [address] [place] [address] You may call with any questions or [...] prior to the appointment. [facility] to schedule this appointment at least two months in advance. Follow-up will be with either Dr. Carter or her physician dental assistant instructor. Any general Urology questions can be addressed [...] 0.87 0.97 ANIONGAP -- 8 13 12 JOSR -- 8.4* 8.3* 9.0 GLC 108* 109* [...] be read by a radiologist or a [facility] non-radiologist provider. CT Abdomen Pelvis w/o Contrast Narrative EXAM: CT ABDOMEN PELVIS W/O CONTRAST LOCATION: [facility] DATE: 11/24/2024 INDICATION: kidney stones, hematuria, confirm [...] Sanabria PA-C [facility] Pager: [phone] Office: [phone] * Adriana Chan MD - 11/28/2024 1:30 PM CDT [facility] Hospitalist Progress Note Assessment & Plan Dr. [...] flush 3 mL 3 mL Intracatheter Q8H [facility] Get Figueroa DO 3 mL at 11/28/24 [...] -- 8 -- -- -- 13 12 JOSR -- -- -- 8.4* -- -- -- [...] in a few weeks. Jammie Cerna PA-C [facility] Office: [phone] During office hours you can reach me at my pager: [phone]. After 5:00 PM or on weekends, please call the office to be directed to the on-call urologist. Cosigned by Geronimo Carter MD at 11/28/2024 2:08 PM CDT Associated attestation - Geronimo Carter MD - 11/28/2024 2:08 PM CDT Physician Attestation I saw and evaluated David Campbell as part of a shared DATA LIBRARIAN/PA visit. I personally reviewed the vital signs, [...] Dao MD - 11/27/2024 5:13 PM CDT [facility] Medicine Progress Note - Hospitalist Service Date [...] appropriate Social Drivers of Health Received from [facility] [employer] Social Connections Disposition Plan Medically Ready for Discharge: Anticipated in 2-4 Days BRENNA DAO MD Hospitalist Service [facility] Securely message with [employer] (more info) Text page via [facility] Paging/Directory Physical Exam Vital Signs: Temp: [...] plan for outpatient follow up with Dr. Caretr to discuss surgical logistics. However, if Hgbcontinues [...] Sanabria PA-C [facility] Pager: [phone] Office: [phone] * aSm Cast RN - 11/26/2024 6:55 PM CDT [id number] Patient is alert and oriented x4. Up [...] to discuss surgical logistics. Jammie Cerna PA-C [facility] Office: [phone] During office hours you can reach me at my pager: [phone]. After 5:00 PM or on weekends, please call the office to be directed to the on-call urologist. * Haley Tran MD - 11/26/2024 7:59 AM CDT [facility] Medicine Progress Note - Hospitalist Service Date [...] Factors Social Drivers of Health Received from [employer] Com Disposition Plan Medically Ready for Discharge: Anticipated Tomorrow if okay with urology Haley Tran MD Hospitalist Service [facility] Securely message with [employer] (more info) Text page via [employer] Paging/Directory Interval History Patient was seen and [...] 8 -- -- -- -- 13 12 JOSR 8.4* -- -- -- -- 8.3* 9.0 [...] Carter MD - 11/25/2024 8:59 AM CDT [facility] Urology Progress Note Date of Service: 11/25/2024 Interval History Ongoing bleeding overnight, CBI POD#1 s/p cystoscopy, right stent placement. Complicated by need for indwelling Medrano catheter due to prostatic bleeding secondary to enlarged prostate. Otherwise upsized yesterday to 22 Gambian three-way. CBI started. Hand irrigated x 2 [...] median lobe. Hemoglobin dropped significantly overnight. 22 Gambian three-way inserted and hand irrigated. CBI started. [...] 0.97 ANIONGAP -- -- -- 13 12 JOSR -- -- -- 8.3* 9.0 GLC -- [...] be read by a radiologist or a [facility] non-radiologist provider. CT Abdomen Pelvis w/o Contrast Narrative EXAM: CT ABDOMEN PELVIS W/O CONTRAST LOCATION: [facility] DATE: 11/24/2024 INDICATION: kidney stones, hematuria, confirm [...] at 8:59 AM [facility] * Haley Tran MD - 11/25/2024 8:33 AM CDT [facility] Medicine Progress Note - Hospitalist Service Date [...] Factors Social Drivers of Health Received from [employer] Disposition Plan Medically Ready for Discharge: Anticipated Tomorrow if okay with urology Haley Tran MD Hospitalist Service [facility] Securely message with [employer] (more info) Text page via [employer] Paging/Directory Interval History Patient was seen and [...] be read by a radiologist or a [facility] non-radiologist provider. CT Abdomen Pelvis w/o Contrast Narrative EXAM: CT ABDOMEN PELVIS W/O CONTRAST LOCATION: [facility] DATE: 11/24/2024 INDICATION: kidney stones, hematuria, confirm [...] 0.97 ANIONGAP -- -- -- 13 12 JOSR -- -- -- 8.3* 9.0 GLC -- [...] Tran MD - 11/24/2024 7:51 AM CDT [facility] Medicine Progress Note - Hospitalist Service Date [...] [facility]. [facility] -Continue ceftriaxone 2 g IV q24 [...] Admission Social Drivers of Health Received from [facility] [employer] Connections Disposition Plan Medically Ready for Discharge: Anticipated Tomorrow Hospital medicine service would not be available to discharge patient late in the evening, unless urology would like patient to discharge postoperatively. Haley Tran MD Hospitalist Service [facility] Securely message with [employer] (more info) Text page via [employer] Paging/Directory Interval History Patient care was assumed [...] 18* BUN 15.9 CR 0.97 ANIONGAP 12 JOSR 9.0 GLC 101* documented in this encounter H&P Notes * Get Figueroa DO - 11/24/2024 2:28 AM CDT [facility] History and Physical - Hospitalist Service Date [...] infection. [facility] -continue ceftriaxone 2 g IV q24 [...] Present on Admission Get Figueroa, Hospitalist Service [facility] Securely message with [employer] (more info) Text page via [facility] Paging/Directory Chief Complaint Right kidney stone, confusion History is obtained from the patient and review of records sent from ED. History of Present Illness David Campbell is a 69 year old male who has a history of kidney stones who presents to the ED at [place] for confusion, fever and subsequently transferred to [facility] with an 8mm obstructing right [...] for possible urosepsis. He was transferred to [facility] for possible urologic intervention. When I saw the patient on the surgical floor he notes that he feels much improved and almost back to normal in terms of mentation. He does not feel cloudy or confused and recalls the events of the day. He knows that he was transferred to [place] and clear answers questions appropriately. He denies [...] 7:57 AM CDTAssociated Order(s): UROLOGY IP CONSULT [facility] Inpatient Consultation Note David Campbell Age: [...] concern for UTI so was transferred to [facility] for urology consult . He does [...] Resource Strain: Low Risk (08/20/2021) Received from [facility] Financial Resource Strain Difficulty of Paying Living Expenses: 3 Difficulty of Paying Living Expenses: Not on file Food Insecurity: No Food Insecurity (08/20/2021) Received from [facility] Food Insecurity Worried About Running Out of Food in the Last Year: 1 Transportation Needs: No Transportation Needs (08/20/2021) Received from [facility] Transportation Needs Lack of Transportation (Medical): 1 Physical Activity: Not on file Stress: Not on file Social Connections: Unknown (09/07/2022) Received from [facility] Social Connections Frequency of Communication with Friends and Family: Not on file Interpersonal Safety: Not on file Housing Stability: Low Risk (08/20/2021) Received from [facility] Housing Stability Unable to Pay for [...] from the Admission note dated 11/24 at [facility] was reviewed with no changes except [...] [place] (Etheridge), JOSSE [facility] Cosigned by Franky Turner MD at 12/06/2024 9:34 AM CDT Associated attestation - Franky Turner MD - 12/06/2024 9:34 AM CDT Physician Attestation I evaluated David Campbell as part of a shared DATA LIBRARIAN/PA visit. I personally reviewed the vital signs, [...] patient's bladder was first entered with a 22-Gambian rigid cystoscope with 0-degree lens. Cystoscopic examination showed normal anterior urethra. The posterior urethra showed bilobar enlargement of the prostate. Both ureteral orifices were identified away from the bladder neck. The rest of the examination was normal. The cystoscope was removed and the meatus was calibrated to 28- Gambian using sounds. The urethra was then filled with lubricant gel and a 26- Gambian Storz continuous-flow resectoscope was placed. The holmium laser apparatus was placed through the sheath. Using a 550-micron end-firing laser fiber with 10 cm of cladding stripped off, a laser bridge, and a ?-Gambian laser stabilizing catheter, the procedure was started [...] 6:30 PM CDT Date & Time: 11/27/24 [id number] Surgery/POD#: POD3 Cysto w/R ureteral stent Behavior [...] rate--mainly light pink in color. Manual irrigation [id number]--ic clots. Drains: PIV SL Diet: Regular Activity Level: Ax1 gb Anticipated DC Date: Possibly home later today pending possible TOV Significant Information: Baseline BUE tremors. * Plan of Care - Pauline Goode RN - 11/26/2024 2:30 PM CDT Date & Time: 11/26/24 [id number] Surgery/POD#: POD #2 s/p cysto, R kidney [...] MD Notified Person Name: Tran Notification Date/Time:11/26/24 5422 Notification Interaction: texted with MD Purpose of [...] Tylenol. 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 Hand irrigated [...] STENT INSERTION, RIGHT RETROGRADE PYELOGRAM, CYSTOSCOPY STAFF Rodeo Clown: Ezra Duarte RN; Ramesh Hoffman RN Scrub Person: Lalitha Diehl; Issa Barcenas SURGEON Surgeon(s): Franky Turner MD FINDINGS Clear urine from right kidney; bladder cystitis, stones in the bladder times 4; very large prostatewith medial lobe of prostate; significant bleeding upon Medrano placement; CBI is initiated EBL 300cc at the end of the case TECHNIQUE INDICATIONS FOR THE PROCEDURE: This is a 60-vliz-uhl-year-old man with a history of 8 mm obstructing right ureteral stone and signs of infection who has been transferred to [facility] from [place] for stent placement. Unfortunately I was not able to review images myself done at [facility]. But I thoroughly reviewed the report with [...] prepped and draped in regular fashion. 22 Gambian cystoscope was placed per his urethra. Evaluation [...] catheter. 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 Taking * Plan of Care - Killina Burgos RN - 11/24/2024 6:02 AM CDT [...] tract symptoms Special Needs Scheduled(23JUL)Fortec(Tejal)Holmium tech only(confirmation# [id number])90 MIN REQ CURRENT INPATIENT CYSTOURETHROSCOPY 11/28/2024 3:1 0 PM CDT Benign prostatic hyperplasia with lower urinary tract symptoms Special Needs Scheduled(23JUL)Fortec(Tejal)Holmium tech only(confirmation# [id number])90 MIN REQ CURRENT INPATIENT HEMOGLOBIN Routine 11/28/2024 [...] CULTURE ROUTINE Routine 11/24/2024 5:15 PM CDT PROCALCITONIN Routine 11/24/2024 6:55 AM CDT PSA [...] - BLOOD ORDERABLES Final Res ult LABORATORY [facility] [address] floor, [address] [place] [address], [facility] [phone] * (ABNORMAL) Glucose by meter (11/29/2024 5:51 AM CDT) GLUCOSE BY METER POCT 108(H) 70 - 99 mg/dL 11/29/2024 5:58 AM CDT LABORATORY POC Blood, Capillary BLOOD SPECIMEN / Unknown 11/29/2024 5:51 AM CDT 11/29/2024 5:58 AM CDT us Brenna Dao MD LAB - BEAKER POCT Final Resul t LABORATORY POC [facility] [address], [address] [place] [address], [facility] * Surgical Pathology Exam (11/28/2024 5:27 PM CDT) Case Report Surgical Pathology Report Case: [id number] Authorizing Provider: Geronimo Carter MD Collected: 11/28/2024 05:27 PM Ordering Location: [facility] Received: 11/29/2024 06:54 AM [facility] Main OR Pathologist: Robert Mckeon MD Specimen: Prostate, PROSTATE 12/01/2024 9:36 AM [facility] Final Diagnosis Prostate, transurethral resection- Benign prostate tissue consistent with benign prostatic hypertrophy 12/01/2024 9:36 AM [facility] at 0936 CDT Clinical Information Procedure: Cystoscopy WITH HOLMIUM LASER ENUCLEATION OF THE PROSTATE Pre-op Diagnosis: Benign prostatic hyperplasia with lower urinary tract symptoms [N40.1] Post-op Diagnosis: N40.1 - Benign prostatic hyperplasia with lower urinary tract symptoms [ICD-10-CM] 12/01/2024 9:36 AM [facility] Gross Description A(1). Prostate, PROSTATE: The specimen is received in formalin, labeled with the patient's name, medical record number and other identifying information designated prostate. It consists of a 55 g, 7.2 x 7.2 x 3.8 cm aggregate of white-akbar previously morcellated soft tissue. [employer] Cox[employer] sections are submitted in formalin in 15 cassettes. SERVANDO Schmidt(ASCP)CM 11/29/2024 8:38 AM 12/01/2024 9:36 AM [facility] Microscopic Description Microscopic performed 12/01/2024 9:36 AM T LABORATORY Performing Labs The technical component of this testing was completed at [facility]. Stain controls for all stains resulted within this report have been reviewed and show appropriate reactivity. 12/01/2024 9:36 AM [facility] Case Images 12/01/2024 9:36 AM [facility] Tissue PROSTATE / Unknown 5:27 PM CDT 11/29/2024 6:54 AM CDT us Geronimo Carter MD [facility] Final Result LABORATORY [facility] [address], [address] [place] [address], [facility] [phone] * Stone analysis (11/28/2024 3:42 PM CDT) Stone Mass 1635 mg 12/01/2024 10:30 PM CDT [facility] Calculi Description See Note 12/01/2024 10:30 PM CDT [employer] Comment: Specimen consists of numerous brown and akbar calculi fragments. Specimen was not received in the preferred dry state. The presence of liquid, blood, gel, or adhesive often delays analysis. The total weight is 1635 mg. Stone Composition See Note 10:30 PM CDT [employer] Comment: Calculi composed primarily of: 40% calcium [...] composition determined by FTIR analysis. Performed By: [employer] [address] [place] [address] Bottle Tester: Sorin Amin MD, PhD CLIA Number: [id number] Calculus/Stone URINARY BLADDER STRUCTURE / Unknown Non-blood Collection / Unknown 11/28/2024 3:42 PM CDT 11/28/2024 6:00 PM CDT us Geronimo Carter MD LAB - BODY FLUIDS ORDERABLES Final Result [employer] [address] [place] [address], [facility] [phone] * (ABNORMAL) Hemoglobin (11/28/2024 10:39 AM CDT) Hemoglobin 8.2(L) 13.3 - 17.7 g/dL 11/28/2024 10:48 AM CDT LABORATORY MCV 88 78 - 100 fL 11/28/2024 10:48 AM CDT LABORATORY Blood STRUCTURE OF RIGHT UPPER LIMB / Unknown Venipuncture / Unknown 11/28/2024 10:39 AM CDT 11/28/2024 10:44 AM CDT Jammie Cerna PA-C LAB - BLOOD ORDERABLES Final Result Performing Organization Address City/[facility]/ZIP Co de Phone Number LABORATORY [facility] [address], [address] [place] [address], [facility] [phone] * (ABNORMAL) Hemoglobin (11/27/2024 12:57 PM CDT) Hemoglobin 8.5(L) 13.3 - 17.7 g/dL 11/27/2024 1:11 PM CDT LABORATORY MCV 89 78 - 100 fL 11/27/2024 1:11 PM CDT LABORATORY Blood STRUCTURE OF RIGHT UPPER LIMB / Unknown Venipuncture / Unknown 11/27/2024 12:57 PM CDT 11/27/2024 1:09 PM CDT us Edwina Sanabria PA-C LAB - BLOOD ORDERABLES Final Res ult Performing Organization Address City/[facility]/ZIP Co de Phone Number LABORATORY [facility] [address], [address] [place] [address], [facility] [phone] * (ABNORMAL) CBC with platelets (11/27/2024 7:44 [...] - BLOOD ORDERABLES Final Res ult LABORATORY [facility] [address], [address] [place] [address], [facility] [phone] * CONDITIONAL Transfuse red blood cells (unit) 1; No special requirements (11/26/2024 1:02 PM CDT) us Geronimo Carter MD BLOOD TRANSFUSION ORDERABLES Final Result * CONDITIONAL Prepare red blood cells (unit) (11/26/2024 10:19 AM CDT) Blood Component Type Red Blood Cells BLOOD BANK Product Code [id number] BLOO D BANK Unit Status Transfused BLOO D BANK Unit Number [id number] B LOOD BANK CROSSMATCH Compatible BLOOD BANK CODING SYSTEM [id number] BLO OD BANK ISSUE DATE AND TIME 11/26/2024 10:59:00 AM CDT BLOOD BANK UNIT ABO/RH O+ BLOOD BANK UNIT TYPE ISBT 5100 BL OOD BANK 11/26/2024 10:1 9 AM CDT Haley Tran MD BLOOD BANK PRODUCT ORDERABLES Fi nal Result BLOOD BANK [address] [address], [facility] * Adult Type and Screen (11/26/2024 7:04 AM CDT) Pathologist [facility] ABO/RH(D) O POS 11/26/2024 8:25 AM CDT [...] ORDER Susan l Result Performing Organization Address City/[facility] Co de Phone Number BLOOD BANK [address] [place] [address], [facility] * (ABNORMAL) Comprehensive metabolic panel (11/26/2024 7:04 AM CDT) [facility] Sodium 135 135 - 145 mmol/L 11/26/2024 [...] 11/26/2024 7:36 AM CDT LABORATORY Comment:eGFR calculated usin g 2020 CKD-EPI equation. Calcium 8.4(L) 8.8 - [...] - BLOOD ORDERABLES Final Res ult LABORATORY [facility] [address], [address] [place] [address], [facility] [phone] * (ABNORMAL) CBC with platelets (11/26/2024 7:04 [...] LAB - BLOOD ORDERABLES Final Res ult [facility] [address], [address] [place] [address], [place] [phone] * (ABNORMAL) Hemoglobin (11/25/2024 7:18 PM CDT) [facility] Hemoglobin 8.6(L) 13.3 - 17.7 g/dL 11/25/2024 8:05 PM CDT LABORATORY MCV 95 78 - 100 fL 11/25/2024 8:05 PM CDT LABORATORY Blood STRUCTURE OF LEFT HAND / Unknown Venipuncture / Unknown 11/25/2024 7:18 PM CDT 11/25/2024 8:03 PM CDT Haley Tran MD LAB - BLOOD ORDERABLES Final Res ult [facility] [address], [address] [place] [address], [place] [phone] * (ABNORMAL) Hemoglobin (11/25/2024 10:02 AM CDT) [facility] Hemoglobin 8.6(L) 13.3 - 17.7 g/dL 11/25/2024 10:21 AM CDT LABORATORY MCV 94 78 - 100 fL 11/25/2024 10:21 AM CDT LABORATORY Blood STRUCTURE OF RIGHT HAND / Unknown Venipuncture / Unknown 11/25/2024 10:02 AM CDT 11/25/2024 10:18 AM CDT us Franky Turner MD LAB - BLOOD ORDERABLES Fi nal Result LABORATORY [facility] [address], [address] [place] [address], [facility] [phone] * (ABNORMAL) CBC with platelets (11/25/2024 6:50 AM CDT) [facility] WBC Count 10.3 4.0 - 11.0 [...] 6:50 AM CDT 11/25/2024 6:54 AM CDT Haley Tran MD LAB - BLOOD ORDERABLES Final Res ult LABORATORY [facility] [address], [address] [place] [address], [facility] [phone] * (ABNORMAL) Hemoglobin (11/25/2024 2:08 AM CDT) Hemoglobin 8.8(L) 13.3 - 17.7 g/dL 11/25/2024 2:15 AM CDT LABORATORY MCV 92 78 - 100 fL 11/25/2024 2:15 AM CDT LABORATORY Blood STRUCTURE OF RIGHT WRIST REGION / Unknown Venipuncture / Unknown 11/25/2024 2:08 AM CDT 11/25/2024 2:12 AM CDT Franky Turner MD LAB - BLOOD ORDERABLES Fi nal Result Performing Organization Address City/[facility]/ZIP Co de Phone Number [facility] [address], [address] [place] [address], [place] [phone] * (ABNORMAL) Hemoglobin (11/24/2024 10:21 PM CDT) Hemoglobin 10.5(L) 13.3 - 17.7 g/dL 11/24/2024 10:34 PM CDT LABORATORY MCV 96 78 - 100 fL 11/24/2024 10:34 PM CDT LABORATORY Blood STRUCTURE OF RIGHT HAND / Unknown Venipuncture / Unknown 11/24/2024 10:21 PM CDT 11/24/2024 10:31 PM CDT Franky Turner MD LAB - BLOOD ORDERABLES [facility] Result LABORATORY [facility] [address] floor, Room [address] [place] [address], [facility] [phone] * CT Abdomen Pelvis w/o Contrast (11/24/2024 [...] EXAM: CT ABDOMEN PELVIS W/O CONTRAST LOCATION: [facility] DATE: 11/24/2024 INDICATION: kidney stones, hematuria, confirm [...] EXAM: CT ABDOMEN PELVIS W/O CONTRAST LOCATION: [facility] DATE: 11/24/2024 INDICATION: kidney stones, hematuria, confirm [...] possible previous contrast administration. Franky Turner MD [facility] [place] ORDERABLES Final R esult * Adult [...] us Zeinab Barcenas MD LAB - BLOOD BANK TEST ORDER Fi nal Result BLOOD BANK [address] [place] [id number], [facility] * Partial thromboplastin time (11/24/2024 6:51 PM CDT) [facility] aPTT 28 22 - 38 Seconds 11/24/2024 7:15 PM CDT LABORATORY Blood STRUCTURE OF RIGHT HAND / Unknown Venipuncture / Unknown 11/24/2024 6:51 PM CDT 11/24/2024 6:55 PM CDT us Zeinab Barcenas MD LAB - BLOOD ORDERABLES Final R esult Performing Organization Address City/[facility]/ZIP Co de Phone Number LABORATORY [facility] [address] floor, [address] [place] [address], [facility] [phone] * (ABNORMAL) CBC with platelets (11/24/2024 6:51 PM CDT) [facility] WBC Count 12.6(H) 4.0 - 11.0 10e3/uL [...] - BLOOD ORDERABLES Final R esult LABORATORY [facility] [address], [place] [address], [place] [address], [place] [phone] * Fibrinogen activity (11/24/2024 6:51 PM CDT) Fibrinogen Activity 370 170 - 510 mg/dL 11/24/2024 7:15 PM CDT LABORATORY Blood STRUCTURE OF RIGHT HAND / Unknown Venipuncture / Unknown 11/24/2024 6:51 PM CDT 11/24/2024 6:55 PM CDT us Zeinab Barcenas MD LAB - BLOOD ORDERABLES Final R esult LABORATORY [facility] [address], [address] [address], [place] [phone] * (ABNORMAL) INR (11/24/2024 6:51 PM CDT) INR 1.19(H) 0.85 - 1.15 11/24/2024 7:15 PM CDT LABORATORY PT 14.9(H) 11.8 - 14.8 Seconds 11/24/2024 7:15 PM CDT LABORATORY Blood STRUCTURE OF RIGHT HAND / Unknown Venipuncture / Unknown 11/24/2024 6:51 PM CDT 11/24/2024 6:55 PM CDT us Zeinab Barcenas MD LAB - BLOOD ORDERABLES Final R esult LABORATORY [facility] [address], [address] [place] [address], [place] [phone] * (ABNORMAL) Basic metabolic panel (11/24/2024 6:51 PM CDT) [facility] Sodium 138 135 - 145 mmol/L [...] 11/24/2024 7:13 PM CDT LABORATORY Comment:eGFR calculated usin 2020 CKD-EPI equation. Calcium 8.3(L) 8.8 - 10.4 mg/dL 11/24/2024 7:13 PM CDT LABORATORY Glucose 106(H) 70 - 99 mg/dL 11/24/2024 7:13 PM CDT LABORATORY Blood STRUCTURE OF RIGHT HAND / Unknown Venipuncture / Unknown 11/24/2024 6:51 PM CDT 11/24/2024 6:55 PM CDT us Zeinab Barcenas MD LAB - BLOOD ORDERABLES Final R esult LABORATORY [facility] [address], [address] [place] [address], [facility] [phone] * XR Surgery AMALIA L/T 5 Min Fluoro w Stills (11/24/2024 5:59 PM CDT) Narrative RADIANT - 11/24/2024 6:00 PM CDT This exam was marked as non-reportable because it will not be read by a radiologist or a [place] non-radiologist provider. Haley Tran MD IMG DIAGNOSTIC [...] ORDER DENA Final Result Performing Organization Address City/[facility]/ZIP Co de Phone Number [facility]ORAT[facility] Inf. Diseases Diag. Lab [address] [facility], [address] [address], [place] * Anaerobic Bacterial Culture Routine (11/24/2024 5:15 PM CDT) Culture No anaerobic organisms isolated ALFRED 12/01/2024 8:03 AM CDT [facility] LABORATORY [place] RIGHT KIDNEY STRUCTURE / Unknown Non-blood Collection / Unknown 11/24/2024 5:15 PM CDT 11/24/2024 5:56 PM CDT Franky Turner MD LAB - MICRO GENERAL ORDER DENA Final Result [facility]ORAT[facility] Inf. Diseases Diag. Lab [address] [facility], [address] [address] * (ABNORMAL) PSA tumor marker (11/24/2024 6:55 [...] equal to 0.03 ng/mL. (1) 1. Jason RICO, Rafa Z, Miguel THOMAS, et al. Do ultrasensitive prostate specific antigen measurements have a role in predicting long-term biochemical recurrence-free survival in men after radical prostatectomy? J Urol. 2016;195(2):330-336. doi:10.1016/j.juro.2015.08.080 us Debbie Villalta PA-C LAB - BLOOD ORDERABLES F inal Result U LABORATORY [facility] Lab [address] [facility] [address], [address] [place] [address] * Procalcitonin (11/24/2024 6:55 AM CDT) [...] See Procalcitonin Guidance document for more details. [email or web address] Factors that may affect PCT levels (not [...] - BLOOD ORDERABLES Final Re sult LABORATORY [facility] [address], [address] [place] [address], [place] [phone] * (ABNORMAL) CBC with platelets (11/24/2024 6:55 AM CDT) [facility] WBC Count 7.8 4.0 - 11.0 [...] - BLOOD ORDERABLES Final Re sult LABORATORY [facility] [address], [address] [place] [address], [place] [phone] * (ABNORMAL) Basic metabolic panel (11/24/2024 6:55 [...] 11/24/2024 7:48 AM CDT LABORATORY Comment:eGFR calculated us2020 CKD-EPI equation. Calcium 9.0 8.8 - 10.4 mg/dL 11/24/2024 7:48 AM CDT LABORATORY Glucose 101(H) 70 - 99 mg/dL 11/24/2024 7:48 AM T LABORATORY Blood STRUCTURE OF RIGHT HAND / Unknown Venipuncture / Unknown 11/24/2024 6:55 AM CDT 11/24/2024 7:09 AM CDT us Get Figueroa DO LAB - BLOOD ORDERABLES Final Re sult LABORATORY [facility] [address], [address] [place] [address], [place] [phone] * (ABNORMAL) UA with Microscopic reflex to Culture (11/24/2024 5:10 AM CDT) Color Urine Straw Colorless, Straw, Light Yellow, Yellow 11/24/2024 5:25 AM CDT LABORATORY Appearance Urine Clear Clear 11/25/19 5:25 AM CDT LABORATORY Glucose Urine Negative Negative mg/dL 11/24/2024 5:25 AM CDT LABORATORY Bilirubin Urine Negative Negative 5:25 AM CDT LABORATORY Ketones Urine Negative Negative mg/dL 11/24/2024 5:25 AM CDT LABORATORY Specific [place] Urine 1.016 1.003 - 1.035 11/24/2024 5:25 [...] - URINE ORDERABLES Final Re sult LABORATORY [facility] [address], [address] [place] [address], [facility] [phone] documented in this encounter Visit Diagnoses Diagnosis Kidney stone- Primary Calculus of kidney Kidney stone Calculus of kidney Benign prostatic hyperplasia with lower urinary tract symptoms documented in this encounter Admitting Diagnoses Diagnosis [...] Bag 11/27/2024 2:00 AM CDT 3,000 mLs sodium chloride 0.9% irrigation (bag) PRN, Starting on Wed11/28/24 at 1532, Intra-procedure $Given 11/28/2024 5:50 PM CDT 3,000 mLs Operative Site/Surgi josr Site $Given 11/28/2024 4:54 PM CDT 3,000 mLs Op erative Site/Surgical Site $Given 11/28/2024 4:53 PM CDT 3,000 mLs Op erative Site/Surgical Site sodium chloride 0.9% irrigation (bag) PRN, Starting on Wed11/28/24 at 1721, Intra-procedure $Given 11/28/2024 5:37 PM CDT 3,000 mLs Operative Site/Surgi josr Site $Given 11/28/2024 5:32 PM CDT 3,000 mLs Op erative Site/Surgical Site $Given 11/28/2024 5:31 PM CDT 3,000 mLs Op erative Site/Surgical Site sterile water (bottle) irrigation PRN, Intra-procedure, Starting on Wed11/28/24 at 1515, Until Wed11/28/24 at 1747 $Given 11/28/2024 3:15 PM CDT 1,000 mLs Operative Site/Surgi josr Site tamsulosin (FLOMAX) capsule 0.4 mg 0.4 mg, [...] Pharmacoprophylaxis, Pre-procedure 1512 ($Given - Provider: Sultana Pimentel, DATA LIBRARIAN SENIOR PATIENT ACCOUNT REPRESENTATIVE) cefTRIAXone (ROCEPHIN) 1 g vial to attach to NS 100 mL bag for ADULTS or NS 50 mL bag for PEDS Routine, 1 g, Intravenous, EVERY 24 HOURS, First dose on Wed11/24/24 at 1900, Lactated Ringer's solution is not compatible with ceftriaxone for injection, Indications: Urinary Tract Infection 1928 ($New Bag - Provider: Leoncio Chaudhry, LAMBERTO) 1402 (Auto Hold - Provider: Orders Generic Provider - Reason: Transfer to a procedural area)1855 (Unhold - Provider: Orders Generic Provider)192 ($New Bag - Provider: Jammie Lara RN) finasteride (PROSCAR) tablet 5 mg 5 mg, Oral, DAILY, First dose on Wed11/26/24 at 0900, *Do not handle tablets if you are * 1026 ($Given - Provider: Leoncio Chaudhry RN) 1003 ($Given - Provider: Whit Escboar, LAMBERTO)1402 (Auto Hold - Provider: Orders Generic Provider - Reason: Transfer to a procedural area)1855 (Unhold - Provider: Orders Generic Provider) 0939 ($Given - Provider: Viky Jolly, RN) gentamicin (GARAMYCIN) infusion 80 mg (COMPLETED) [...] RN) 0939 ($Given - Provider: Viky Jolly, RN)1600 (Canceled Entry - Provider: Orders Generic Provider - Comment: Automatically canceled at discontinue of medication order) sodium chloride (PF) 0.9% PF flush 3 mL 3 mL, Intracatheter, EVERY 8 HOURS SCHEDULED, First dose on Wed11/28/24 at 2200, to lock peripheral IV dormant line 2200 (Canceled Entry - Provider: Jammie aLra RN) 0550 ($Given - Provider: Ofelia Valente RN)1400 [...] procedural area)185 (Unhold - Provider: Orders Generic Provider)192 ($Given - Provider: Jammie Lara RN) Continuous Medication Order 11/27/2024 11/28/2024 11/29/2024 lactated ringers infusion (CANCELED) at 10 mL/hr, Intravenous, CONTINUOUS, IF patient NOT on dialysis., Pre-procedure, Starting on Wed11/28/24 at 1430, Until Wed11/28/24 at 1747 1507 ($New Bag - Provider: Sultana Pimentel APRN SENIOR PATIENT ACCOUNT REPRESENTATIVE - Comment: started in preop)1730 ($New Bag - Provider: Sultana Pimentel APRN SENIOR PATIENT ACCOUNT REPRESENTATIVE) sodium chloride 0.9% irrigation (bag) Irrigation, CONTINUOUS, [...] 75 mg/kg/day not to exceed 4 grams/day. 033 (See Alternative - Provider: Jammie Lara RN) 1402 (Auto Hold - Provider: Orders [...] 0339 ($Given - Provider: Jammie Lara, LAMBERTO) 140 (Auto Hold - Provider: Orders Generic Provider - Reason: Transfer to a procedural area)1854 (Unhold - Provider: Orders Generic Provider)1941 ($Given - Provider: Jammie Lara, LAMBERTO) acetaminophen (TYLENOL) tablet 650 mg 650 mg, [...] PRN, heartburn, Starting on Wed11/24/24 at 0218 140 (Auto [...] 0221, May use concomitant with non-opioid analgesics. 140 (Auto Hold - Provider: Orders Generic [...] area)185 (Unhold - Provider: Orders Generic Provider) lidocaine [...] area)1854 (Unhold - Provider: Orders Generic Provider) naloxone [...] have not improved after 4 naloxone doses. 140 (Auto Hold - Provider: Orders Generic [...] have not improved after 4 naloxone doses. 140 (Auto Hold - Provider: Orders Generic [...] area)1855 (Unhold - Provider: Orders Generic Provider) opium-belladonna [...] area)1855 (Unhold - Provider: Orders Generic Provider) senna-docusate [...] Geronimo Carter MD)1737 ($Given - Provider: Geronimo Catrer MD) sterile water (bottle) irrigation (CANCELED) PRN, [...] stools. documented in this encounter Care Teams Cheese Maker Relationship Specialty Start Date End Date No Ref-Primary, Physician PCP - General 11/24/24 documented as of this encounter
--- OUTSIDE RECORDS SUMMARY | 2024-11-28 15:07 | XMS_ITS | Encounter Summary ---
Author Organization [facility] Address [address] [place] [id number] Care Team Providers Care Director Cost Name Role Phone No Ref-Primary, Physician Primary Care Provider Reason for Visit * Auth/Cert Specialty Diagnoses / Procedures Referred By Kelvin camacho Referred To Contact Med Surg Diagnoses Kidney stone Kidney stone Get Figueroa DO [address] [address] Phone: tel: fax: [facility] General Surgery [address] [phone] Phone: tel: fax: Referral ID Status Reason Start Date Expiration Date Visits Re quested Visits Authorized [id number] 1 1 Encounter Details Date Type Department Care Team (Late st Contact Info) Description 11/28/2024 3:07 PM CDT Anesthesia Event [facility] [address] [place] [phone] Philip Farnsworth MD [facility] ANESTHESIA [address] [id number] Anesthesia Record Procedure Summary Procedure Name Responsible Anesthesiologist Anesthesia Start Time Anesthesia Stop Time Cystoscopy (Urethra) Philip Farnsworth MD 5 1507 11/28/24 1750 Events Date Time Event Comment 11/28/2024 1425 SCRAP CARRIER Ready for Procedure 4971 1507 An Start Anesthesia Star t is defined as when the anesthesia provider assumed care, began anesthesia prep, remained continuously present with the patient, and excludes all time for performing the pre-anesthesia evaluation. The Pre-Anesthesia Evaluation was completed before Anesthesia Start. 1510 An Start Data 1514 AN REASSESS I attest that I have identified and re-evaluated the patient immediately before the induction of anesthesia and I am satisfied that the anesthetic plan is suitable for the patient's condition and procedure. The first vital signs recorded are pre-induction. Sultana Pimentel APRN SCRAP CARRIER 1519 An Induction 1521 An LMA 1523 Anesthesia Ready for Procedu re 1534 AN INCISION 1706 MD Present 1742 LMA Removed 1744 an stop data 1750 An Stop Electronically signed by Sultana Pimentel APRN CRNA on November 28, 2024 5:44 PM Meds Name Total dexamethasone (DECADRON) 4 mg/mL 4 mg fentaNYL 50 mcg/mL 100 mcg lidocaine 2% 100 mg midazolam 1 mg/mL 2 mg ondansetron 2 mg/mL 4 mg propofol (DIPRIVAN) 10 mg/mL 200 mg phenylephrine (BRYAN-SYNEPHRINE) injection 600 mcg ceFAZolin Sodium (ANCEF) injection 2 g 2 g gentamicin (GARAMYCIN) infusion 80 mg 0 mg vasopressin 1 unit/mL 2 Units phenylephrine 0.2 mg/mL (mcg/kg/min) dri p 5.61 mg dexmedeTOMIDine (PRECEDEX) 4 mcg/mL bolu s 20 mcg tranexamic acid (CYKLOKAPRON) 1,000 mg i n sodium chloride 0.9 % 50 mL bolus 1 g furosemide 10 mg/mL 20 mg HYDROmorphone (DILAUDID) (PF) injection 0.5 mg/0.5 mL 0.5 mg norepinephrine bolus 6.4 mcg/mL 6.4 mcg lactated ringers infusion 1,000 mL albumin 5% 250 mL * Agents Name O2 N2O Air Exp Sevoflurane Exp Isoflurane Exp Desflurane O2 Delivery Device Ins Sevoflurane Ins Isoflurane Ins Desflurane O2 Auxiliary * Blood No blood administrations on file. Lines, Drains, and Airways Type Details Placement Removal Incision/Surgical Site No Incision; 11/28/24; 1704; Penis; Prostate/Bladder 11/28/24 1704 by Jocelyn John RN Peripheral IV 11/24/24; 1458; 20 G ; Left; Lower forearm; Chlorhexidine; 1; Tolerated well 11/24/24 1458 by Lisbeth Hammond RN 11/29/24 1654 by Inpatient, Nurse Urinary Drain 11/24/24; 1734; Urethral Catheter; Yes; Surgical procedure; 22 fr 11/24/24 1734 by Ezra Duarte RN 11/28/24 1525 by Jocelyn John RN Supraglottic Airway Placement Date: 11/28/24; Placement Time: 153 (created via procedure documentation); Mask Ventilation: 0; LMA Size: 5; Airway Brand: I-Gel; Attempts: 1 11/28/24 1532 by Sultana Pimentel APRN SCRAP CARRIER 11/28/24 1742 by Sultana Pimentel APRN SCRAP CARRIER Urinary Drain 11/28/24; 1732; Urethral Catheter; Yes; radha torres; Surgical procedure; 22 fr 11/28/24 1732 by Jocelyn John RN 11/29/24 0941 by Viky Jolly RN documented in this encounter Social History Tobacco Use Types Packs/Day Years Used Date Smoking Tobacco: Never Smokeless Tobacco: Never Alcohol Use Standard Drinks/Week Comments Yes 0 [...] in an abandoned building, in an overnight skilled nursing, or couch-surfing.) Yes 11/24/2024 Are you worried [...] OR Notes * Anesthesia Postprocedure Evaluation - Alexei Emmanuel MD - 11/28/2024 7:20 PM CDT Patient: David Campbell Procedure: Procedure(s): Cystoscopy WITH HOLMIUM LASER ENUCLEATION OF THE PROSTATE Anesthesia Type: General Note: Postop Pain Control: Uneventful Sign Out: Well controlled pain PONV: No Neuro/Psych: Uneventful Sign Out: Acceptable/Baseline neuro status Airway/Respiratory: Uneventful Sign Out: Acceptable/Baseline resp. status CV/Hemodynamics: Uneventful Sign Out: Acceptable CV status Other NRE: NONE DID A NON-ROUTINE EVENT OCCUR? Last vitals: Vitals Value Taken Time BP 111/77 11/28/24 18:30 Temp 36 ??C (96.8 ??F) 11/28/24 18:00 Pulse 70 11/28/24 18:43 Resp 9 11/28/24 18:43 SpO2 97 % 11/28/24 18:43 Vitals shown include unfiled device data. Electronically Signed By: Alexei Emmanuel MD November 28, 2024 7:20 PM * Anesthesia Procedure Notes - Sultana Pimentel APRN SCRAP CARRIER - 11/28/2024 3:32 PM CDTAssociated Order(s): Airway Airway Patient location during procedure: OR Staff - Anesthesiologist: Philip Farnsworth MD SCRAP CARRIER: Sultana Pimentel APRN SCRAP CARRIER Performed By: SCRAP CARRIER Consent for Airway Urgency: elective Indications and Patient Condition Indications for airway management: luisa-procedural Induction type:intravenous Mask difficulty assessment: 0 - not attempted Final Airway Details Final airway type: supraglottic airway Supraglottic Airway Details Type: LMA Brand: I-Gel LMA size: 5 Post intubation assessment Placement verified by: capnometry and chest rise Number of attempts at approach: 1 Number of other approaches attempted: 0 Secured with: tape Ease of procedure: easy Dentition: Unchanged * Anesthesia Preprocedure Evaluation - Philip Farnsworth MD - 11/27/2024 6:56 PM CDT Anesthesia Pre-Procedure Evaluation Patient: David Campbell : 1955 Procedure : Procedure(s): Cystoscopy WITH HOLMIUM LASER ENUCLEATION OF THE PROSTATE Past Medical History: Diagnosis Date Kidney stone Past Surgical History: Procedure Laterality Date CYSTOSCOPY, RETROGRADES, INSERT STENT URETER(S), COMBINED Right 11/24/2024 Procedure: RIGHT KIDNEY WASHING, RIGHT URETERAL STENT INSERTION, RIGHT RETROGRADE PYELOGRAM, CYSTOSCOPY; Surgeon: Frnaky Turner MD; Location: [facility] OR Allergies Allergen Reactions Shellfish-Derived Products Nausea and Vomiting Social History Tobacco Use Smoking status: Not on file Smokeless tobacco: Not on file Substance Use Topics Alcohol use: Not on file Wt Readings from Last 1 Encounters: 11/24/24 69.8 kg (153 lb 14.1 oz) Anesthesia Evaluation Pt has had prior anesthetic. Type: General. No history of anesthetic complications ROS/MED HX ENT/Pulmonary: (-) tobacco use, asthma, COPD and sleep apnea Neurologic: - neg neurologic ROS Cardiovascular: (-) hypertension and dyslipidemia METS/Exercise Tolerance: Hematologic: - neg hematologic ROS Musculoskeletal: GI/Hepatic: (-) GERD and liver disease Renal/Genitourinary: (+) renal disease (pyelonephritis), type: ARF, Nephrolithiasis , Endo: (-) Type I DM and Type II DM Psychiatric/Substance Use: Comment: 1-2 EtOH drinks/day Infectious Disease: Malignancy: Other: Physical Exam Airway Mallampati: II TM distance: >3 FB Neck ROM: full Mouth opening: >= 4 cm Cardiovascular Rhythm: regular Rate: normal rate Dental (+) Minor Abnormalities - some fillings, tiny chips Pulmonary - normal exam Neurological - normal exam He appears awake, alert and oriented x3. Other Findings OUTSIDE LABS: CBC: Lab Results Component Value Date WBC 4.2 11/27/2024 WBC 6.3 11/26/2024 HGB 8.5 (L) 11/27/2024 HGB 7.9 (L) 11/27/2024 HCT 23.3 (L) 11/27/2024 HCT 20.9 (L) 11/26/2024 PLT 166 11/27/2024 PLT 163 11/26/2024 BMP: Lab Results Component Value Date NA 135 11/26/2024 NA 138 11/24/2024 POTASSIUM 4.0 11/26/2024 POTASSIUM 4.2 11/24/2024 CHLORIDE 104 11/26/2024 CHLORIDE 105 11/24/2024 CO2 23 11/26/2024 CO2 20 (L) 11/24/2024 BUN 17.7 11/26/2024 BUN 13.0 11/24/2024 CR 0.99 11/26/2024 CR 0.87 11/24/2024 GLC 109 (H) 11/26/2024 GLC 106 (H) 11/24/2024 COAGS: Lab Results Component Value Date PTT 28 11/24/2024 INR 1.19 (H) 11/24/2024 FIBR 370 11/24/2024 POC: No results found for: BGM, HCG, HCGS HEPATIC: Lab Results Component Value Date ALBUMIN 3.3 (L) 11/26/2024 PROTTOTAL 5.6 (L) 11/26/2024 ALT 9 11/26/2024 AST 27 11/26/2024 ALKPHOS 37 (L) 11/26/2024 BILITOTAL 0.4 11/26/2024 OTHER: Lab Results Component Value Date ALEKS 8.4 (L) 11/26/2024 Anesthesia Plan ASA Status: 2 NPO Status: NPO Appropriate Anesthesia Type: General. Maintenance: Balanced. Techniques and Equipment: - Monitoring Plan: standard ASA monitoring Consents Anesthesia Plan(s) and associated risks, benefits, and realistic alternatives discussed. Questions answered and patient/escrow representative(s) expressed understanding. - Discussed: anesthesiologist - Discussed with: Patient - Pt is DNR/DNI Status: no DNR Postoperative Care Pain management: plan for postoperative opioid use. Comments: Philip Farnsworth MD I have reviewed the pertinent notes and labs in the chart from the past 30 days and (re)examined the patient. Any updates or changes from those notes are reflected in this note. Clinically Significant Risk Factors # Hypocalcemia: Lowest Ca = 8.4 mg/dL in last 2 days, will monitor and replace as appropriate # Hypoalbuminemia: Lowest albumin = 3.3 g/dL at 11/26/2024 7:04 AM, will monitor as appropriate documented in this encounter Miscellaneous Notes * Anesthesia Care Transfer Note - Sultana Pimentel APRN CRNA - 11/28/2024 5:50 PM CDT Patient: David Campbell Procedure: Procedure(s): Cystoscopy WITH HOLMIUM LASER ENUCLEATION OF THE PROSTATE Diagnosis: Benign prostatic hyperplasia with lower urinary tract symptoms [N40.1] Diagnosis Additional Information: No value filed. Anesthesia [...] handoff report given Patient transferred to: PACU Handoff Report: Identifed the Patient, Identified the Reponsible Provider, Reviewed the pertinent medical history, Discussed the surgical course, Reviewed Intra-OP anesthesia mangement and issues during anesthesia, Set expectations for post-procedure period and Allowed opportunity for questions andacknowledgement of understanding VSS. Report to RIVER DRIVER. No concerns. Electronically Signed By: Sultana Pimentel APRN CRNA November 28, 2024 5:44 PM documented in this encounter Plan of Treatment Not on file documented as of this encounter Procedures Procedure Name Priority Date/Time Associated Diagnosis Comments ANE AIRWAY SUPRAGLOTTIC PERFORMABLE Routine 11/28/2024 3:32 PM CDT documented in this encounter Results * ANE AIRWAY SUPRAGLOTTIC PERFORMABLE (11/28/2024 3:32 PM CDT) Narrative Sultana Pimentel APRN CRNA - 11/28/2024 3:32 PM CDT Sultana Pimentel APRN CRNA 11/28/2024 3:32 PM Airway Patient location during procedure: OR Staff - Anesthesiologist: Philip Farnsworth MD SCRAP CARRIER: Sultana Pimentel APRN CRNA Performed By: SCRAP CARRIER Consent for Airway Urgency: elective Indications and Patient Condition Indications for airway management: luisa-procedural Induction type:intravenous Mask difficulty assessment: 0 - not attempted Final Airway Details Final airway type: supraglottic airway Supraglottic Airway Details Type: LMA Brand: I-Gel LMA size: 5 Post intubation assessment Placement verified by: capnometry and chest rise Number of attempts at approach: 1 Number of other approaches attempted: 0 Secured with: tape Ease of procedure: easy Dentition: Unchanged Philip Farnsworth MD [place] ANESTH[facility] Final Re sult documented in this encounter Visit Diagnoses Not on filedocumented in this encounter Administered Medications Inactive Administered Medications - up to 3 most recent administrations Medication Order MAR Action Action Date Dose Rate Site albumin human 5 % injection Intravenous, CONTINUOUS PRN, Starting on Wed11/28/24 at 1624, Anesthesia Intra-op $New Bag 11/28/2024 4:24 PM CDT ceFAZolin Sodium (ANCEF) injection 2 g Routine, 2 g, Intravenous, PRE-OP/PRE-PROCEDURE, Starting on Wed11/28/24 at 1407, For 1 dose, Give first dose within 1 hour PRIOR to incision. If patient weight is greater than or equal to 120 kg increase dose to 3 g., Indications: Perioperative Pharmacoprophylaxis, Pre-procedureIndications:Perioperati ve Pharmacoprophylaxis $Given 11/28/2024 3:12 PM CDT 2 g dexAMETHasone (DECADRON) injection Intravenous, PRN, Administer over 1 Minutes, Starting on Wed11/28/24 at 1523, Anesthesia Intra-op $Given 11/28/2024 3:23 PM CDT 4 mg dexmedeTOMIDine (PRECEDEX) 4 mcg/mL bolus Intravenous, CONTINUOUS PRN, Starting on Wed11/28/24 at 1616, Anesthesia Intra-op $Bolus 11/28/2024 4:40 PM CDT 4 mcg $Bolus 11/28/2024 4:22 PM CDT 8 mcg $New Bag 11/28/2024 4:16 PM CDT 8 mcg fentaNYL (PF) (SUBLIMAZE) injection Intravenous, PRN, Administer over 3-5 Minutes, Starting on Wed11/28/24 at 1519, Anesthesia Intra-op $Given 11/28/2024 4:04 PM CDT 50 mcg $Given 11/28/2024 3:19 PM CDT 50 mcg furosemide (LASIX) injection Intravenous, PRN, Starting on Wed11/28/24 at 1640, Anesthesia Intra-op $Given 11/28/2024 4:40 PM CDT 20 mg HYDROmorphone (PF) (DILAUDID) injection Intravenous, PRN, Administer over 2-10 Minutes, Starting on Wed11/28/24 at 1641, Anesthesia Intra-op $Given 11/28/2024 4:41 PM CDT 0.5 mg lactated ringers infusion at 10 mL/hr, Intravenous, CONTINUOUS, IF patient NOT on dialysis., Pre-procedure, Starting on Wed11/28/24 at 1430, Until Wed11/28/24 at 1747 $New Bag 11/28/2024 5:30 PM CDT $New Bag 11/28/2024 3:07 PM CDT lidocaine 2% injection (MDV) Intravenous, PRN, Starting on Wed11/28/24 at 1519, Anesthesia Intra-op $Given 11/28/2024 3:19 PM CDT 100 mg midazolam (VERSED) injection Intravenous, Administer over 2 Minutes, PRN, Starting on Wed11/28/24 at 1512, Anesthesia Intra-op $Given 11/28/2024 3:12 PM CDT 2 mg norepinephrine bolus 6.4 mcg/mL Intravenous, CONTINUOUS PRN, Starting on Wed11/28/24 at 1711, Anesthesia Intra-op $New Bag 11/28/2024 5:11 PM CDT 6.4 mcg ondansetron (ZOFRAN) injection Intravenous, PRN, Administer over 2-5 Minutes, Starting on Wed11/28/24 at 1640, Anesthesia Intra-op $Given 11/28/2024 4:40 PM CDT 4 mg phenylephrine (BRYAN-SYNEPHRINE) injection Intravenous, CONTINUOUS PRN, Starting on Wed11/28/24 at 1521, Anesthesia Intra-op $Bolus 11/28/2024 5:21 PM CDT 100 mcg $Bolus 11/28/2024 5:02 PM CDT 100 mcg $Bolus 11/28/2024 3:39 PM CDT 100 mcg phenylephrine 0.2 mg/mL (mcg/kg/min) drip Intravenous, CONTINUOUS PRN, Starting on Wed11/28/24 at 1540, Anesthesia Intra-op Rate/Dose Change 11/28/2024 5:31 PM CDT 0.5 mcg/kg/min 10.47 mL/hr Rate/Dose Change 11/28/2024 5:08 PM CDT 0.8 mcg/kg/min 16. 752 mL/hr Rate/Dose Change 11/28/2024 4:29 PM CDT 0.7 mcg/kg/min 14. 658 mL/hr propofol (DIPRIVAN) injection 10 mg/mL vial Intravenous, PRN, Starting on Wed11/28/24 at 1519, Anesthesia Intra-op $Given 11/28/2024 3:19 PM CDT 200 mg tranexamic acid (CYKLOKAPRON) 1,000 mg in sodium chloride 0.9 % 50 mL bolus Intravenous, CONTINUOUS PRN, Starting on Wed11/28/24 at 1639, Anesthesia Intra-op $New Bag 11/28/2024 4:39 PM CDT 1 g vasopressin 1 unit/mL syringe Intravenous, PRN, Starting on Wed11/28/24 at 1528, Anesthesia Intra-op $Given 11/28/2024 3:50 PM CDT 0.5 Uni ts $Given 11/28/2024 3:35 PM CDT 1 Units $Given 11/28/2024 3:28 PM CDT 0.5 Units documented in this encounter Care Teams Director Cost Relationship Specialty Start Date End Date No Ref-Primary, Physician PCP - General 11/24/24 documented as of this encounter
--- OUTSIDE RECORDS SUMMARY | 2024-12-21 14:09 | XMS_ITS | Clinical Summary ---
Author Organization [facility] Address [address] [place] [address] Care Team Providers Care Water Meter Reader Name Role Phone Pcp, No Primary Care Provider Unavailabl e Allergies Active Allergy Reactions Criticality Noted Date Comments Adhesive Tape sensitivity Medications No known medications Active Problems Problem Noted Date Diagnosed Date Calculus of kidney 03/17/2007 Mixed hyperlipidemia Impaired fasting glucose Encounters Date Type Department Care Team Description 11/23/2024 Orders Only [facility] Scanner 1 scan: (1-Ord) [facility], CHEST ABDOMEN PELVIS W/CONTRAST, 11/23/2024 11/23/2024 Orders Only [facility] Scanner 1 scan: (1-Ord) [facility], XR CHEST 2V, 11/23/2024 11/23/2024 Orders Only [facility] Scanner 1 scan: (1-Ord) [facility], CT HEAD/BRAIN WO CON, 11/23/2024 from Last 3 Months Immunizations Immunization Administration Dates Next Due Hepatitis [...] on file 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 Gender Identity Not on file Sexual Orientation [...] Procedure Name Priority Date/Time Associated Diagnosis Comments SCAN-CT INTERPRETATION 5 12:00 AM CDT SCAN-RADIOLOGY REPORT 11/23/2024 12:00 AM CDT SCAN-CT INTERPRETATION 5 12:00 AM CDT LIPID PANEL Routine 02/09/2007 7:10 AM CDT Hyperlipidemia Mixed from Last 3 Months or Most Recently Relevant to Health Maintenance Results * SCAN-RADIOLOGY REPORT (11/23/2024 12:00 AM CDT) Anatomical Region Laterality Modality Other us Scanner OTHER Final Result * SCAN-CT INTERPRETATION (11/23/2024 12:00 AM CDT) Only the most recent of2 resultswithin the time period is included. Anatomical Region Laterality Modality Other us Scanner OTHER Final Result * LIPID PANEL (02/09/2007 7:10 AM CDT) CHOLESTEROL,TOTAL 166 110 - 199 mg/dL [facility] TRIGLYCERIDES 68 <150 mg/dL [facility] HDL CHOLESTEROL 56 >40 mg/dL [facility] CHOL/HDL RATIO 2.96 <4.51 [facility] LDL CHOLESTEROL 96 <131 mg/dL [facility] PATIENT STATUS Fasting [facility] Blood specimen (specimen) BLOOD SPECIMEN / Unknown 02/09/2007 7:10 AM CDT 02/09/2007 7:06 AM CDT Daniel Silvestre MD CHEMISTRY Final Result [facility] [address] [place], [place] [id number] from Last 3 Months or Most Recently Relevant to Health Maintenance [place] [id number] [employer] PPO MR Advance Directives * Full Code (Latest Code Status on File) Date Activated Date Inactivated Comments 01/11/2007 8:25 AM 01/11/2007 3:27 PM Care Teams Water Meter Reader Relationship Specialty Start Date End Date Pcp, No . PCP - General 08/20/21
--- OUTSIDE RECORDS SUMMARY | 2024-12-21 14:09 | XMS_ITS | Clinical Summary ---
Author Organization [facility] Address [address] [place] [id number] Care Team Providers Care Hydraulic Chair Assembler Name Role Phone No Ref-Primary, Physician Primary Care Provider Allergies Active Allergy Reactions Criticality Noted Date Comments Latex Rash Low 11/28/2024 Rash with latex bandages Shellfish-Derived Products Nausea and Vomiting 11/24/2024 Medications acetaminophen (TYLENOL) 500 MG tablet Take 500-1,000 mg by mouth every 8 hours as needed for mild pain. Active magnesium oxide 400 MG tablet Take 400 mg by mouth every morning. Active Cholecalciferol (VITAMIN D-3 PO) Take 1 tablet by mouth every morning. Active acetaminophen (TYLENOL) 325 MG tablet Take 2 tablets (650 mg) by mouth every 4 hours as needed for mild pain or other (and adjunct with moderate or severe pain or per patient request). 5 Active finasteride (PROSCAR) 5 MG tabletIndicatio ns:Kidney stone Take 1 tablet (5 mg) by mouth daily. 30 tablet 5 12/31/19 25 Active tamsulosin (FLOMAX) 0.4 MG capsuleIndicati ons:Kidney stone Take 1 capsule (0.4 mg) by mouth every evening. 30 capsule 5 12/30/19 25 Active Menaquinone-7 (VITAMIN K2 PO) Take 1 tablet by mouth every morning. 11/30/19 25 Discontinu ed(Stop at Discharge) Active Problems Problem Noted Date Diagnosed Date Kidney stone 11/24/2024 Encounters Date Type Department Care Team Description 11/28/2024 3:[address] [facility] Services [address] [place] [address] Philip Farnsworth MD 11/28/2024 3:00 PM CDT - 11/28/2024 5:20 PM CDT Surgery [facility] [address] [place] [address] Geronimo Carter MD Cystoscopy 11/24/2024 4:34 PM CDT Anesthesia Event [facility] [address] [place] [address] Zeinab Barcenas MD 11/24/2024 4:00 PM CDT - 11/24/2024 5:15 PM CDT Surgery [facility] [address] [place] [address] Franky Turner MD RIGHT KIDNEY WASHING, RIGHT URETERAL STENT INSERTION, RIGHT RETROGRADE PYELOGRAM, CYSTOSCOPY 11/24/2024 1:36 AM CDT - 11/29/2024 3:52 PM CDT Hospital Encounter [facility] General Surgery [address] [facility] [place] [address] Lucinda Jameson MD Iqbal, Saima, MD Weisz, Cynthia L, MD Maresh, Andrew, DO Kidney stone (Primary Dx) Discharge Disposition: Home or Self Care from Last 3 Months Social History Tobacco Use Types Packs/Day Years [...] in an abandoned building, in an overnight long-term, or couch-surfing.) Yes 11/24/2024 Are you worried [...] on file Sexual Orientation Not on file Last Filed Vital Signs Vital Sign Reading Time Taken Comments Blood Pressure 112/70 11/29/2024 8:02 AM CDT Pulse 79 11/29/2024 8:02 AM CDT Temperature 36.8 C (98.3 F) 11/29/2024 8:02 AM CDT Respiratory Rate 16 11/29/2024 8:02 AM CDT Oxygen Saturation 95% 11/29/2024 8:02 AM CDT Inhaled Oxygen Concentration - - Weight 69.8 kg (153 lb 14.1 oz) 025 5:21 AM CDT Height 177.8 cm (5' 10) 11/24/2024 5:21 AM CDT Body Mass Index 22.08 11/24/2024 5:21 AM CDT Plan of Treatment Health Maintenance Due Date Last Done Comments ADVANCE CARE PLANNING 1954 ANNUAL REVIEW OF HM ORDERS 1954 CT COLONOGRAPHY 1954 FIT 1954 FLEX SIG 1954 sDNA (Cologuard) 1954 COLONOSCOPY 1964 COLORECTAL CANCER SCREENING 1964 HEPATITIS C SCREENING 1972 LIPID 1994 FALL RISK ASSESSMENT 2019 MEDICARE ANNUAL WELLNESS VISIT 2019 COVID-19 VACCINE ( season) 2024 08/11/2021, 01/31/2021, 07/20/2020, Additional history exists PHQ-2 (once per calendar year) 2024 INFLUENZA VACCINE (#1) 2025 , 12/26/2019, 02/20/2019 DIABETES SCREENING 11/30/2027 11/29/2024, 0 11/26/2024, 11/24/2024, Additional history exists RSV VACCINE (1 - 1-dose 75+ series) 2029 DTAP/TDAP/TD VACCINE (3 - Td or Tdap) 02/28/2031 02/28/2021, 12/25/2013 ZOSTER VACCINE Completed 11/30/2018, 09/06/2018 PNEUMOCOCCAL VACCINE 50+ YEARS Completed 02/28/2021, 12/18/2019 HPV VACCINE (No Doses Required) Completed MENINGITIS VACCINE Aged Out No longer eligible based on patient's age to complete this topic Medical Devices Implanted Type Area Fish Net Maker Device Identifier Shelf Expiration Date Model / Serial / Lot Stent Ureteral Polaris Ultra [id number] - [id number] Implanted:Qty : 1 on 11/24/2024 by Franky Turner MD at [facility] Stent Right: Ureter [employer] [id number] 08/01/2027 [id number] / / [id number] Procedures Procedure Name Priority Date/Time Associated Diagnosis Comments HEMOGLOBIN STAT 11/29/2024 7:43 AM CDT GLUCOSE BY METER Routine 11/29/2024 5:51 AM CDT SURGICAL PATHOLOGY EXAM Routine 11/29/19 5:27 PM CDT STONE ANALYSIS Routine 11/28/2024 3:42 PM CDT ANE AIRWAY SUPRAGLOTTIC PERFORMABLE Routine 11/28/2024 3:32 PM CDT LASER ENUCLEATION PROSTATE W MORCELLATION 11/28/2024 3:10 PM CDT Benign prostatic hyperplasia with lower urinary tract symptoms Special Needs Scheduled(23JUL)Fortec(Tejal)Holmium tech only(confirmation# [id number])90 MIN REQ CURRENT INPATIENT CYSTOURETHROSCOPY 11/28/2024 3:1 0 PM CDT Benign prostatic hyperplasia with lower urinary tract symptoms Special Needs Scheduled(23JUL)Fortec(Tejal)Holmium tech only(confirmation# [id number])90 MIN REQ CURRENT INPATIENT HEMOGLOBIN Routine 11/28/2024 10:39 AM CDT HEMOGLOBIN Timed 11/27/2024 12:57 PM CDT CBC WITH PLATELETS Routine 11/27/2024 7: 44 AM CDT CONDITIONAL TRANSFUSE RED BLOOD CELLS (UNIT) Routine 11/26/2024 11:11 AM CDT CONDITIONAL PREPARE RED BLOOD CELLS (UNIT) Routine 11/26/2024 10:19 AM CDT ABO/RH TYPE AND SCREEN STAT Add-on 7:04 AM CDT TYPE AND SCREEN, ADULT STAT Add-on 7:04 AM CDT COMPREHENSIVE METABOLIC PANEL Routine 11/26/2024 7:04 AM CDT CBC WITH PLATELETS Routine 11/26/2024 7: 04 AM CDT HEMOGLOBIN Timed 11/25/2024 7:18 PM CDT HEMOGLOBIN Timed 11/25/2024 10:02 AM CDT CBC WITH PLATELETS Routine 11/25/2024 6: 50 AM CDT HEMOGLOBIN Timed 11/25/2024 2:08 AM CDT HEMOGLOBIN Timed 11/24/2024 10:[address] ABDOMEN PELVIS W/O CONTRAST STAT 11/24/2024 7:26 PM CDT ABO/RH TYPE AND SCREEN STAT 6:51 PM CDT TYPE AND SCREEN, ADULT STAT 6:51 PM CDT PARTIAL THROMBOPLASTIN TIME STAT 11/24/2024 6:51 PM CDT CBC WITH PLATELETS STAT 11/24/2024 6: 51 PM CDT FIBRINOGEN ACTIVITY Routine 11/24/2024 6:51 PM CDT INR STAT 11/24/2024 6:51 PM CDT BASIC METABOLIC PANEL STAT 11/24/2024 6:51 PM CDT XR SURGERY AMALIA FLUORO LESS THAN 5 MIN W STILLS Routine 11/24/2024 5:59 PM CDT AEROBIC BACTERIAL CULTURE ROUTINE Routine 11/24/2024 5:15 PM CDT ANAEROBIC BACTERIAL CULTURE ROUTINE Routine 11/24/2024 5:15 PM CDT ANE AIRWAY SUPRAGLOTTIC PERFORMABLE Routine 11/24/2024 4:45 PM CDT CYSTOSCOPY, WITH RETROGRADE PYELOGRAM AND URETERAL STENT INSERTION 11/24/2024 4:35 PM CDT Ureteropelvic junction calculus PSA TUMOR MARKER Add-On 11/24/2024 6:55 AM CDT PROCALCITONIN Routine 11/24/2024 6:55 AM CDT CBC WITH PLATELETS Routine 11/24/2024 6: 55 AM CDT BASIC METABOLIC PANEL Routine 11/24/2024 6:55 AM CDT ROUTINE UA WITH MICROSCOPIC REFLEX TO CULTURE Routine 11/24/2024 5:10 AM CDT from Last 3 Months Results * (ABNORMAL) Hemoglobin (11/29/2024 7:43 AM CDT) Only the most recent of7 resultswithin the time period is included. Hemoglobin 8.4(L) 13.3 - 17.7 g/dL 11/29/2024 7:56 AM CDT LABORATORY MCV 87 78 - 100 fL 11/29/2024 7:56 AM CDT LABORATORY Blood STRUCTURE OF RIGHT UPPER LIMB / Unknown Venipuncture / Unknown 11/29/2024 7:43 AM CDT 11/29/2024 7:48 AM CDT us Edwina Sanabria PA-C LAB - BLOOD ORDERABLES Final Res ult LABORATORY [facility] [address] floor, [address] [place] [id number], [facility] [phone] * (ABNORMAL) Glucose by meter (11/29/2024 5:51 AM CDT) GLUCOSE BY METER POCT 108(H) 70 - 99 mg/dL 11/29/2024 5:58 AM CDT LABORATORY POC Blood, Capillary BLOOD SPECIMEN / Unknown 11/29/2024 5:51 AM CDT 11/29/2024 5:58 AM CDT us Brenna Madera MD LAB - BEAKER POCT Final Resul t LABORATORY POC [facility] [address], [address] [place] [address], [facility] * Surgical Pathology Exam (11/28/2024 5:27 PM CDT) Case Report Surgical Pathology Report Case: [id number] Authorizing Provider: Geronimo Carter MD Collected: 11/28/2024 05:27 PM Ordering Location: [facility] Received: 11/29/2024 06:54 AM [facility] Main OR Pathologist: Robert Mckeon MD Specimen: Prostate, PROSTATE 12/01/2024 9:36 AM [facility] Final Diagnosis Prostate, transurethral resection- Benign prostate tissue consistent with benign prostatic hypertrophy 12/01/2024 9:36 AM [facility] at 0936 CDT Clinical Information Procedure: Cystoscopy WITH HOLMIUM LASER ENUCLEATION OF THE PROSTATE Pre-op Diagnosis: Benign prostatic hyperplasia with lower urinary tract symptoms [N40.1] Post-op Diagnosis: N40.1 - Benign prostatic hyperplasia with lower urinary tract symptoms [ICD-10-CM] 12/01/2024 9:36 AM [facility] Gross Description A(1). Prostate, PROSTATE: The specimen is received in formalin, labeled with the patient's name, medical record number and other identifying information designated prostate. It consists of a 55 g, 7.2 x 7.2 x 3.8 cm aggregate of white-akbar previously morcellated soft tissue. Toll Booth Operator sections are submitted in formalin in 15 cassettes. SERVANDO Schmidt(ASCP)CM 11/29/2024 8:38 AM 12/01/2024 9:36 AM [facility] Microscopic Description Microscopic performed 12/01/2024 9:36 AM [facility] Performing Labs The technical component of this testing was completed at [facility]. Stain controls for all stains resulted within this report have been reviewed and show appropriate reactivity. 12/01/2024 9:36 AM CDT LABORATORY Case Images 12/01/2024 9:36 AM T LABORATORY Tissue PROSTATE / Unknown 5:27 PM CDT 11/29/2024 6:54 AM CDT us Geronimo Carter MD LAB - BEAKER AP Final Result LABORATORY [facility] [address] 1[address] floor, [address] [place] [address], [facility] [phone] * Stone analysis (11/28/2024 3:42 PM CDT) Stone Mass 1635 mg 12/01/2024 10:30 PM CDT [facility] Calculi Description See Note 12/01/2024 10:30 PM CDT [facility] Comment: Specimen consists of numerous brown and akbar calculi fragments. Specimen was not received in the preferred dry state. The presence of liquid, blood, gel, or adhesive often delays analysis. The total weight is 1635 mg. Stone Composition See Note 10:30 PM CDT [facility] Comment: Calculi composed primarily of: 40% calcium [...] composition determined by FTIR analysis. Performed By: [employer] [address] [place] [address] Classroom Technology Technician: Sorin Amin MD, PhD CLIA Number: [id number] Calculus/Stone URINARY BLADDER STRUCTURE / Unknown Non-blood Collection / Unknown 11/28/2024 3:42 PM CDT 11/28/2024 6:00 PM CDT us Geronimo Carter MD LAB - BODY FLUIDS ORDERABLES Final Result [facility] [address] [place] [address], [facility] [phone] * ANE AIRWAY SUPRAGLOTTIC PERFORMABLE (11/28/2024 3:32 PM CDT) Only the most recent of2 resultswithin the time period is included. Narrative Sultana Pimentel APRN ACCOUNTING SYSTEMS MANAGER - 11/28/2024 3:32 PM CDT Sultana Pimentel APRN ACCOUNTING SYSTEMS MANAGER 11/28/2024 3:32 PM Airway Patient location during procedure: OR Staff - Anesthesiologist: Philip Farnsworth MD ACCOUNTING SYSTEMS MANAGER: Sultana Pimentel APRN ACCOUNTING SYSTEMS MANAGER Performed By: ACCOUNTING SYSTEMS MANAGER Consent for Airway Urgency: elective Indications and [...] procedure: easy Dentition: Unchanged Philip Farnsworth MD [place] ANESTHESIA Final Re sult * (ABNORMAL) CBC with platelets (11/27/2024 7:44 AM CDT) Only the most recent of5 resultswithin the time period is included. WBC Count 4.2 4.0 - 11.0 10e3/uL [...] - BLOOD ORDERABLES Final Res ult LABORATORY [facility] [address] 1[address], [address] [place] [address], [facility] [phone] * CONDITIONAL Transfuse red blood cells (unit) 1; No special requirements (11/26/2024 1:02 PM CDT) Geronimo Carter MD BLOOD TRANSFUSION ORDERABLES Final Result * CONDITIONAL Prepare red blood cells (unit) (11/26/2024 10:19 AM CDT) Blood Component Type Red Blood Cells BLOOD BANK Product Code [id number] BLOO D BANK Unit Status Transfused BLOO D BANK Unit Number [id number] B LOOD BANK CROSSMATCH Compatible BLOOD BANK CODING SYSTEM [id number] BLO OD BANK ISSUE DATE AND TIME 11/26/2024 10:59:00 AM CDT BLOOD BANK UNIT ABO/RH O+ BLOOD BANK UNIT TYPE ISBT [address] [facility] OOD BANK 11/26/2024 10:1 9 AM CDT Haley Tran MD BLOOD BANK PRODUCT ORDERABLES Fi nal Result BLOOD BANK [address] [place] [address], [facility] * Adult Type and Screen (11/26/2024 7:04 AM CDT) Only the most recent of2 resultswithin the time period is included. ABO/RH(D) O POS 11/26/2024 8:25 AM CDT BLOOD BANK Antibody Screen Negative Negative 11/26/2024 8:25 AM CDT BLOOD BANK SPECIMEN EXPIRATION DATE 11/29/2024 11:59:00 PM CDT 11/26/2024 8:25 AM CDT BLOOD BANK Blood STRUCTURE OF RIGHT UPPER LIMB / Unknown Venipuncture / Unknown 11/26/2024 7:04 AM CDT 11/26/2024 7:09 AM CDT us Haley Tran MD LAB - BLOOD BANK TEST ORDER Susan l Result BLOOD BANK [address] [place] [address], [facility] * (ABNORMAL) Comprehensive metabolic panel (11/26/2024 7:04 AM CDT) Sodium 135 135 - 145 mmol/L 11/26/2024 7:36 AM T LABORATORY Potassium 4.0 3.4 - 5.3 mmol/L 11/26/2024 7:36 AM [facility] Carbon Dioxide (CO2) 23 22 - 29 mmol/L 11/26/2024 7:36 AM [facility] Anion Gap 8 7 - 15 mmol/L 11/26/2024 7:36 AM T LABORATORY Urea Nitrogen 17.7 8.0 - 23.0 mg/dL 11/26/2024 7:36 AM T LABORATORY Creatinine 0.99 0.67 - 1.17 mg/dL 11/26/2024 7:36 AM T LABORATORY GFR Estimate 82 >60 mL/min/1.7 3m2 11/26/2024 7:36 AM [facility] Comment:eGFR calculated us2020 CKD-EPI equation. Calcium 8.4(L) 8.8 - 10.4 mg/dL 11/26/2024 7:36 AM T LABORATORY Chloride 104 98 - 107 mmol/L 11/26/2024 7:36 AM T LABORATORY Glucose 109(H) 70 - 99 mg/dL [...] LAB - BLOOD ORDERABLES Final Res ult [facility] [address], [address] [place] [address], [facility] [phone] * CT Abdomen Pelvis w/o Contrast (11/24/2024 [...] EXAM: CT ABDOMEN PELVIS W/O CONTRAST LOCATION: [facility] DATE: 11/24/2024 INDICATION: kidney stones, hematuria, confirm [...] EXAM: CT ABDOMEN PELVIS W/O CONTRAST LOCATION: [facility] DATE: 11/24/2024 INDICATION: kidney stones, hematuria, confirm [...] IMG CT ORDERABLES Final R esult * (ABNORMAL) INR (11/24/2024 6:51 PM CDT) INR 1.19(H) 0.85 - 1.15 11/24/2024 7:15 PM CDT LABORATORY PT 14.9(H) 11.8 - 14.8 Seconds 11/24/2024 7:15 PM CDT LABORATORY Blood STRUCTURE OF RIGHT HAND / Unknown Venipuncture / Unknown 11/24/2024 6:51 PM CDT 11/24/2024 6:55 PM CDT Zeinab Barcenas MD LAB - BLOOD ORDERABLES Final R esult [facility] [address], [address] [address], [facility] [phone] * Partial thromboplastin time (11/24/2024 6:51 PM CDT) aPTT 28 22 - 38 Seconds 11/24/2024 7:15 PM CDT LABORATORY Blood STRUCTURE OF RIGHT HAND / Unknown Venipuncture / Unknown 11/24/2024 6:51 PM CDT 11/24/2024 6:55 PM CDT Zeinab Barcenas MD LAB - BLOOD ORDERABLES Final R esult [facility] [address] 1[address], [address] [place] [address], [place] [phone] * Fibrinogen activity (11/24/2024 6:51 PM CDT) Fibrinogen Activity 370 170 - 510 mg/dL 11/24/2024 7:15 PM CDT LABORATORY Blood STRUCTURE OF RIGHT HAND / Unknown Venipuncture / Unknown 11/24/2024 6:51 PM CDT 11/24/2024 6:55 PM CDT us Zeinab Barcenas MD LAB - BLOOD ORDERABLES Final R esult LABORATORY [facility] [address], [address] [place] [address], [facility] [phone] * (ABNORMAL) Basic metabolic panel (11/24/2024 6:51 PM CDT) Only the most recent of2 resultswithin the time period is included. Pathologist [facility] Sodium 138 135 - 145 mmol/L 11/24/2024 [...] 11/24/2024 7:13 PM CDT LABORATORY Comment:eGFR calculated 2020 CKD-EPI equation. Calcium 8.3(L) 8.8 - 10.4 mg/dL 11/24/2024 7:13 PM CDT LABORATORY Glucose 106(H) 70 - 99 mg/dL 11/24/2024 7:13 PM CDT LABORATORY Blood STRUCTURE OF RIGHT HAND / Unknown Venipuncture / Unknown 11/24/2024 6:51 PM CDT 11/24/2024 6:55 PM CDT us Zeinab Barcenas MD LAB - BLOOD ORDERABLES Final R esult LABORATORY [facility] [address], [address] [place] [address], [facility] [phone] * XR Surgery AMALIA L/T 5 Min Fluoro w Stills (11/24/2024 5:59 PM CDT) Narrative [facility] - 11/24/2024 6:00 PM CDT This exam was marked as non-reportable because it will not be read by a radiologist or a [facility] non-radiologist provider. us Haley Tran MD IMG DIAGNOSTIC IMAGING ORDERABLE S Final Result Performing Organization Address City/[facility] Co de Phone Number [facility] * [place] Aerobic Bacterial Culture Routine (11/24/2024 5:15 PM CDT) Culture No Growth 11/29/2024 6:58 AM CDT [facility] [place] RIGHT KIDNEY STRUCTURE / Unknown Non-blood Collection / Unknown 11/24/2024 5:15 PM CDT 11/24/2024 5:55 PM CDT us Franky Turner MD LAB - MICRO GENERAL ORDER DENA Final Result [facility]ORAT[facility] Inf. Diseases Diag. Lab [address] [facility], [address] [place] [address], [facility] * Anaerobic Bacterial Culture Routine (11/24/2024 5:15 PM CDT) Culture No anaerobic organisms isolated ALFRED 12/01/2024 8:03 AM CDT [facility] [place] RIGHT KIDNEY STRUCTURE / Unknown Non-blood Collection / Unknown 11/24/2024 5:15 PM CDT 11/24/2024 5:56 PM CDT Franky Turner MD LAB - MICRO GENERAL ORDER DENA Final Result [facility]ORAT[facility] Inf. Diseases Diag. Lab [address] [facility], [address] [place] [address] * Procalcitonin (11/24/2024 6:55 AM CDT) Procalcitonin [...] See Procalcitonin Guidance document for more details. [email or web address] Factors that may affect PCT levels (not [...] - BLOOD ORDERABLES Final Re sult LABORATORY [facility] [address], [address] [place] [address], [facility] [phone] * (ABNORMAL) PSA tumor marker (11/24/2024 6:55 [...] BLOOD ORDERABLES F inal Result U LABORATORY [facility] Core Lab [address] [facility], [address] [place] [address] * (ABNORMAL) UA with Microscopic reflex to Culture (11/24/2024 5:10 AM CDT) Color Urine Straw Colorless, Straw, Light Yellow, Yellow 11/24/2024 5:25 AM CDT LABORATORY Appearance Urine Clear Clear 11/25/19 5:25 AM CDT LABORATORY Glucose Urine Negative Negative mg/dL 11/24/2024 5:25 AM CDT LABORATORY Bilirubin Urine Negative Negative 5:25 AM CDT LABORATORY Ketones Urine Negative Negative mg/dL 11/24/2024 5:25 AM CDT LABORATORY Specific [place] Urine 1.016 1.003 - 1.035 11/24/2024 5:25 [...] - URINE ORDERABLES Final Re sult LABORATORY [facility] [address], [address] [place] [address], [facility] [phone] from Last 3 Months Insurance SONDR[place] Mcfarland [id number] [facility] MEDICARE ADVANTAGE SONDRA Mcfarland [id number] [facility] MEDIC[employer] ADV[employer]AGE Advance Directives For more information, please contact: [phone] * Full Code (Latest Code Status on File) Date Activated Date Inactivated Comments 11/28/2024 6:41 PM 11/29/2024 5:59 PM All basic an d advanced life-sustaining interventions are performed as appropriate Question Answer Comments Code status determined by: Discussion with patie nt/ legal decision maker * Full Code Date Activated Date Inactivated Comments 11/24/2024 2:21 AM 11/28/2024 6:41 PM All basic an d advanced life-sustaining interventions are performed as appropriate Question Answer Comments Code status determined by: Discussion with patie nt/ legal decision maker Care Teams Hydraulic Chair Assembler Relationship Specialty Start Date End Date No Ref-Primary, Physician PCP - General 11/24/24
[2024-12-21 14:15] VITALS: BP 166/100; PULSE 84; RESP 20; TEMP 36.1; O2SAT 99; BMI 22.4
--- NOTE | 2024-12-21 14:42 | ED.GENADULT ---
HPI - General Adult General Date Seen: 12/21/24 Chief complaint: Flank Pain Stated complaint: pain from kidney stone Time Seen by Provider: 12/21/24 14:42 History of Present Illness HPI narrative: 69-year-old gentleman presenting to the ER today from flank pain that he believes from a kidney stone. oJrge medical record was seen here in the ER on 11/13 18 for confusion and word-finding problems. He had hematuria. CT scan showed an obstructing 8 mm stone in the right collecting system with hydronephrosis. Started on IV Rocephin and transferred to a [facility] for Urology consult. It looks like he had follow-up with his primary care provider, Dr. Silvestre here in [place] and was referred to [place] [facility]. He saw Urology, Dr. Turner on 12/18., per is scanned in consult note looks like he has to schedule a laser lithotripsy of his stone. He is on tamsulosin and finasteride. He reports that while he was in the hospital itself tell he had bladder stones removed, he had a prostate surgery because of enlarged prostate and he had a stent placed into his ureter. He was in the hospital for about a week and did get IV antibiotics for urinary infection. He had some urinary bleeding after his prostate surgery next to the choir to blood transfusion. He was discharged home. He has been trying to get his follow-up arranged to [place] [facility]. It with with difficulty finally saw a urologist a couple of days ago. He thought he was going to be able to get the stent removed, but his urologist told him that in fact he needed to schedule a laser lithotripsy 1st before he can get the stent removed. He and his had not been informed that they needed a lithotripsy. Therefore his stent removal has been delayed. Patient his and have been working with the [place] [facility] schedulers to get the lithotripsy on books. However it turns out that [facility] and the hospitals that they cover are not ?in network? with the patient's insurance and therefore the procedure will not be covered. They have been trying to get a referral to [facility] who are ?in network? Urology. They have contacted [place] [facility] course post fax some of the records to [facility]. They do not know if the fax has occurred yet or not. Through all this the patient is in doing fairly well. No significant pain. However today he developed fairly significant pain in his right flank and groin. Much worse than it had been all month. He has been noticing hematuria off and on. He does not have any fever. No other you infection symptoms. No confusion. No weakness. He had some pretty severe pain earlier today and took a leftover Tylenol with codeine and says his pain is improved now down to a 3/10. Although he still having some pain it is tolerable and he does not the more pain medication right now. Related Data Home Medications ?Medication ?Instructions ?Recorded ?Confirmed finasteride 5 mg tablet mg 12/21/24 tamsulosin 0.4 mg capsule PO 12/21/24 Allergies Allergy/AdvReac Type Severity Reaction Status Date / Time oyster extract Allergy Unknown Verified 12/21/24 14:14 shellfish derived Allergy Unknown Verified 12/21/24 14:14 [facility] Social History Smoking Status: Never smoker Do you use any of these nicotine containing products: None How often do you have a drink containing alcohol: 4 or more times a week How many standard drinks containing alcohol do you have on a typical day: 1 or 2 How often do you have six or more drinks on one occasion: Never AUDIT-C Alcohol total score: 4 Non-prescribed substance use: denies use Exam Narrative: Exam Narrative: Constitutional: Appears well-developed and well-nourished. Alert. Conversant. Non toxic. HENT: Head: Atraumatic. Nose: Nose normal. Mouth/Throat: Oral mucosa is clear and moist. no trismus. Eyes: Conjunctivae normal. EOM normal. Pupils equal, round, and reactive to light. No scleral icterus. Neck: Normal range of motion. Neck supple. No tracheal deviation present. Cardiovascular: Normal rate, regular rhythm. No gallop. No friction rub. No murmur heard. Symmetric radial artery pulses Pulmonary/Chest: Effort normal. No stridor. No respiratory distress. No wheezes. No rales. No rhonchi . No tenderness. Abdominal: Soft. Bowel sounds normal. No distension. No mass. No tenderness. No rebound. No guarding. Mild right CVA tenderness. Musculoskeletal: RUE: Normal range of motion. No tenderness. No deformity LUE: Normal range of motion. No tenderness. No deformity RLE: Normal range of motion. No edema. No tenderness. No deformity LLE: Normal range of motion. No edema. No tenderness. No deformity Neurological: Alert and oriented to person, place, and time. Normal strength. CN II-VII intact. No sensory deficit. GCS eye subscore is 4. GCS verbal subscore is 5. GCS motor subscore is 6. Normal coordination Skin: Skin is warm and dry. No rash noted. No pallor. Normal capillary refill. Psychiatric: Normal mood. Normal affect. Const: Vital Signs, click to edit/add: Vital Signs - 24 hr 12/21/24 14:15 12/21/24 17:11 Temperature 97.0 F L 98.0 F Pulse Rate [Pulse Oximeter] 84 70 Respiratory Rate 20 18 Blood Pressure [Ri ght Upper Arm] 166/100 H 170/87 H Pulse Oximetry 99 98 Oxygen Delivery Me thod Room Air Room Air Course Vital Signs Vital signs: Initial Vital Signs Temperature 97.0 F L 12/21/24 14:15 Temperature Source Temporal Artery Scan 12/21/24 14:15 Pulse Rate 84 12/21/24 14:15 Respiratory Rate 20 12/21/24 14:15 Blood Pressure 166/100 H 12/21/24 14:15 Blood Pressure Mean 122 H 12/21/24 14:15 Pulse Oximetry 99 12/21/24 14:15 Oxygen Delivery Method Room Air 12/21/24 14:15 Vital Signs Temperature 97.0 F L 12/21/24 14:15 Pulse Rate 84 12/21/24 14:15 Respiratory Rate 20 12/21/24 14:15 Blood Pressure 166/100 H 12/21/24 14:15 Pulse Oximetry 99 12/21/24 14:15 Oxygen Delivery Method Room Air 12/21/24 14:15 Temperature 98.0 F 12/21/24 17:11 Pulse Rate 70 12/21/24 17:11 Respiratory Rate 18 12/21/24 17:11 Blood Pressure 170/87 H 12/21/24 17:11 Pulse Oximetry 98 12/21/24 17:11 Oxygen Delivery Method Room Air 12/21/24 17:11 Medical Decision Making MDM Narrative Medical decision making narrative: Very pleasant 69-year-old gentleman presenting to the ER today with right flank and groin pain from his stent. He has a known history of an 8 mm kidney stone that we diagnosed here a month ago. At that time stone was complicated by urinary infection. He was transferred to [facility] for IV antibiotics and urologic consultation. At that date, [facility] was the only hospital in the region with bed availability and urology consultation if ability. He had a stent placed into his ureter and was treated for his infection. He has been home now for about 3 weeks and doing pretty well. He has been unable to follow-up with [place] [facility] (the urology group that place to stand when he was in the hospital at [facility]) until on Wednesday. He followed up for what he thought was going to be his stent removal. However due to trouble with communication he was not aware that he was also supposed to his scheduled a laser lithotripsy along with stent removal. He is in the process of getting that scheduled but now finds out that [place] [facility] is not ?in network with his insurance? so he cannot follow-up with them. He is now working on a new refer to [facility]. Although he had been doing well today he had a big increase in pain, similar to his previous kidney stone prompting his visit here to the ER. He had taken a Tylenol with codeine at home and pain is now tolerable a well managed. Labs show me that his kidney function is at baseline with a creatinine of 1.0. Urinalysis shows hematuria and scant pyuria which I think are consistent with presence of a stent and not really indicative of an active UTI. He is not febrile. White blood cell count is normal. I do knows that he is anemic with a hemoglobin 9. This corresponds to his reported his tree of bleeding when he was in the hospital at [facility] and requiring a blood transfusion. CT scan is obtained today because of his new pain. It shows that the stent is in appropriate position but there is moderate hydronephrosis in the right renal collecting system suggesting probable stent malfunction or occlusion. I discussed this with Urology on-call for [place] [facility]. They feel that if the stent is in appropriate position, moderate hydronephrosis can simply be due to reflux of urine from the bladder and not necessarily an occlusion. Because his ain is tolerable, they feel comfortable letting him go home and having him follow-up in a couple of weeks. No need for any immediate hospitalization or an immediate stent exchange or other procedure. I also discussed with the on-call provider for [place] [facility] that the patient is making efforts to get a referral to [facility] because they are in network for the patient but [place] [facility] is not. [facility] would be comfortable with the patient follows up with [place], however they cannot arrange any appointments with [facility]. [facility] would be happy to see the patient if he wants to follow up with [place] [facility]. The patient and his would prefer to try to follow up with [facility]. They have already started the process to get a referral. I did place a phone call to the [facility] center but as yet [facility] has not returned my request for consultation. Patient is feeling better. He had his would like to discharge home. Precautions for return to the ER and need for follow-up reviewed with the patient and his . It is frustrating that at this point we have not yet been able to finalize the plan with Urology male. They will continue to work on arranging that referral Instymeds prescription for [place] and Zofran provided. Lab Data Labs: Lab Results 12/21/24 12/21/24 Range/Units 14:48 16:03 WBC 5.86 (4.50-11.00) K/uL RBC 3.29 L (4.30-5.90) m/uL Hgb 9.2 L (13.5-17.5) gm/dL Hct 29.3 L (37.0-53.0) % MCV 89 (80-100) fL MCH 28 (26-34) pg MCHC 31 L (32-36) gm/dL RDW Coeff of Purnima 21.0 H (11.5-15.5) % Plt Count 275 (140-440) K/uL Neut % (Auto) 53.8 (42.0-72.0) % Lymph % (Auto) 29.7 (20-44) % [place] % (Auto) 10.8 (0.0-11.0) % Eos % (Auto) 4.8 (0.0-7.0) % Baso % (Auto) 0.7 (0.0-3.0) % Neut # (Auto) 3.16 (1.7-7.0) K/uL Lymph # (Auto) 1.74 (0.90-2.90) K/uL Stoddard # (Auto) 0.60 (0.00-0.90) K/UL Eos # (Auto) 0.28 (0.00-0.50) K/uL Baso # (Auto) 0.04 (0.00-0.30) K/uL Abs Immat Gran (auto) 0.01 (0.00-0.30) K/uL Imm/Tot Granulo (auto) 0.2 % Diff Slide Review Acceptable Review (Acceptable) Sodium 137 (135-149) mmol/L Potassium 4.5 (3.6-5.1) mmol/L Chloride 108 (96-114) mmol/L Carbon Dioxide 24 (20-32) mmol/L Anion Gap 5 L (7-15) mEq/L BUN 23 (7-30) mg/dL Creatinine 1.0 (0.5-1.5) mg/dL Estimated Creat Clear 68.79 Estimated GFR 81 ml/min Glucose 101 (60-115) mg/dL Calcium 9.0 (8.4-10.6) mg/dL Urine Color Brown A (Yellow) Urine Appearance Cloudy A (Clear) Urine pH 5.5 (5.0-8.5) Ur Specific [place] 1.025 (1.000-1.030) Urine Protein 3+ A (Negative) Urine Glucose (UA) Negative (Negative) Urine Ketones Trace A (Negative) Urine Blood 3+ A (Negative) Urine Nitrite Negative (Negative) Urine Bilirubin 1+ A (Negative) Urine Urobilinogen 0.2 (0.2-1.0) Ur Leukocyte Esterase Trace A (Negative) Urine RBC >100 A (0-2) Urine WBC 5-10 A (0-5) Ur Squamous Epith Cells Few (None-Few) Urine Bacteria Many A (None) Discharge Plan Discharge Clinical Impression: Acute right flank pain, Ureteral stent present Patient Disposition: Home, Self-Care Condition: Stable Instructions: Kidney Stones (ED), Ureteral Stent Placement (DC) Additional Instructions: As we discussed, please return to the ER right away if you have any problems especially uncontrolled pain, uncontrolled nausea vomiting, fever or chills or any signs of weakness or infection. Use the prescription pain killers if needed for pain. Be careful with hydrocodone because it can cause dizziness, drowsiness, constipation, and like all pain killers, can be addictive. Use Zofran if needed for nausea. Even if you are doing well, Please follow-up with your urologist at [place] [facility] or with a urologist at [facility] within 7-10 days. Prescriptions: No Action tamsulosin 0.4 mg capsule PO finasteride 5 mg tablet Patient Comments: [NO ORIGINAL SIG] Follow Up/Referrals: Daniel Silvestre MD [Primary Care Provider, Family Practice] Stand Alone Forms: [employer] Info Instructions
[2024-12-21 14:59] LABS: Appearance Urine Cloudy (Clear)
--- NOTE | 2024-12-21 15:04 | CRLHL7_ITS ---
For Patients: As a result of the Century Cures Act, medical imaging exams and procedure reports are released immediately into your electronic medical record. You may view this report before your referring provider. If you have questions, please contact your health care provider. INDICATION: Increasing flank and groin pain. Ureteral stent. TECHNIQUE: CT abdomen and pelvis without contrast. COMPARISON: 11/23/2024. FINDINGS: Increased mild right basilar ground-glass, likely infectious/inflammatory (series 3, image 9). The liver is unremarkable. The gallbladder is partially distended. No biliary ductal dilatation. Spleen is unremarkable. Pancreas is unremarkable. Adrenal glands are normal. Interval placement of a right ureteral stent. There is increased moderate right hydronephrosis compared to the prior examination. There is noted about the ureter which is likely reactive. There is a persistent 10 millimeter stone within the right renal pelvis. Multiple nonobstructing right renal stones are also noted the largest measuring 6 millimeters. No ureteral stone is seen. No left hydronephrosis. Punctate nonobstructing left renal stones are noted. Urinary bladder is partially distended. Improved stone burden within the urinary bladder with multiple small bladder stones remaining measuring up to 6 millimeters. Mild bladder wall thickening. No significant inflammatory fat stranding. There is high density along the periphery of the presumed urethra were possible calcification with likely interval TURP. There is stool throughout the colon which appears nondilated. Diminutive appendix. The small bowel is unremarkable. The stomach is partially distended. No free air. No ascites. No organized drainable fluid collection. Again noted is stranding along the right ureter and right peritoneal reflection. No retroperitoneal hematoma is seen. No lymphadenopathy is seen. Aorta is not aneurysmal. No acute fracture IMPRESSION: 1. Interval placement of a right ureteral stent with increased moderate right hydronephrosis compared to 11/23/2024. This could reflect stent dysfunction. Persistent 10 millimeter stone within a dilated right renal pelvis with multiple nonobstructing right renal calculi also noted. 2. Improved stone burden within the urinary bladder with mild urinary bladder wall thickening. 3. Likely interval TURP changes. Indeterminate high density and calcification along the presumed prostatic urethra. Clinical correlation is recommended. 4. Increased mild right basilar pulmonary ground-glass. This is likely infectious/inflammatory. Please note that all CT scans at this facility use dose modulation, iterative reconstruction, and/or weight-based dosing when appropriate to reduce radiation dose to as low as reasonably achievable. Dictated by Joshua Goddard MD @ 12/21/2024 4:05:55 PM (Electronically Signed)
[2024-12-21 16:17] LABS: Hematocrit 29.3 % (37.0-53.0); Hemoglobin* 9.2 gm/dL (13.5-17.5); Immature Granulocytes Abs Auto 0.01 K/uL (0.00-0.30); Immature Granulocytes Pct Auto 0.2 %; Lymphocytes Absolute Auto 1.74 K/uL (0.90-2.90); Mean Corpuscular HGB Conc 31 gm/dL (32-36); Mean Corpuscular Hemoglobin 28 pg (26-34); Mean Corpuscular Volume 89 fL (80-100); RDW Coefficient of Variation % 21.0 % (11.5-15.5); Red Blood Count 3.29 m/uL (4.30-5.90); White Blood Count* 5.86 K/uL (4.50-11.00)
[2024-12-21 16:25] LABS: Chloride* 108 mmol/L (96-114); Potassium* 4.5 mmol/L (3.6-5.1); Sodium* 137 mmol/L (135-149)
[2024-12-21 16:28] LABS: Anion Gap 5 mEq/L (7-15); Blood Urea Nitrogen* 23 mg/dL (7-30); Calcium* 9.0 mg/dL (8.4-10.6); Carbon Dioxide* 24 mmol/L (20-32); Creatinine* 1.0 mg/dL (0.5-1.5); Est. Creatinine Clearance* 68.79; Estimated Glomerular Filt Rate 81 ml/min; Glucose* 101 mg/dL (60-115)
[2024-12-21 16:31] LABS: Slide Review Reflex Yes
[2024-12-21 16:54] LABS: Slide Review Acceptable Review (Acceptable)
[2024-12-21 17:11] VITALS: BP 170/87; PULSE 70; RESP 18; TEMP 36.7; O2SAT 98
== END 2024-12-21 17:35 | disposition home or self-care (01) ==
PROVIDERS: Student in an Organized Health Care Education/Training Program; Emergency Provider Emergency Medicine; PCP Family Medicine
DX: R10.9 Unspecified abdominal pain (principal); Z96.0 Presence of urogenital implants
CPT/HCPCS: 36415; 74176; 80048; 81001; 85025; 87086; 99283; 99284; 99285

== ENCOUNTER 2025-01-04 11:53 | Outpatient (CLI) | payer OTHER, SELFPAY ==
[2025-01-04 12:15] LABS: Appearance Urine Cloudy (Clear)
== END 2025-01-04 11:54 | disposition home or self-care (01) ==
LOC: LAB 11:54
PROVIDERS: Visit Provider Urology
DX: N20.0 Calculus of kidney (principal)
CPT/HCPCS: 81001; 81003; 87086